=== PATIENT | male | born 1950 | race Caucasian/White ===

== ENCOUNTER → 2020-04-12 13:43 | Outpatient (BNVA) | payer MEDICARE, SELFPAY | PROVIDERS: PCP Internal Medicine; Visit Provider Urology | DX: N40.0 Benign prostatic hyperplasia without lower urinary tract symptoms (principal); N52.9 Male erectile dysfunction, unspecified; N48.1 Balanitis | CPT/HCPCS: 51798; 81002; 99212 ==

== ENCOUNTER → 2020-09-27 09:55 | Outpatient (BNVA) | payer MEDICARE, SELFPAY | PROVIDERS: PCP Internal Medicine; Visit Provider Urology | CPT/HCPCS: Q3014 ==

== ENCOUNTER → 2021-06-13 13:07 | Outpatient (BNVA) | payer MEDICARE, SELFPAY | PROVIDERS: PCP Internal Medicine; Visit Provider Urology | DX: Z13.89 Encounter for screening for other disorder (principal) | CPT/HCPCS: Q3014 ==

== ENCOUNTER → 2021-09-27 13:07 | Outpatient (BNVA) | payer MEDICARE, SELFPAY | PROVIDERS: PCP Internal Medicine; Visit Provider Urology | DX: N40.0 Benign prostatic hyperplasia without lower urinary tract symptoms (principal); N52.9 Male erectile dysfunction, unspecified; R68.82 Decreased libido | CPT/HCPCS: 51798; 99212 ==

== ENCOUNTER 2021-12-22 08:46 | Outpatient (REF) | payer MEDICARE, SELFPAY ==
[2021-12-22 09:33] LABS: Albumin Level 4.5 g/dL (3.5-5.0)
[2021-12-25 12:03] LABS: Follicle Stimulating Hormone 13.9 mIU/mL (1.6-8.0); Lutenizing Hormone 22.8 mIU/mL (1.6-15.2)
[2021-12-29 14:52] LABS: Testosterone, Free 79.2 pg/mL (35.0-155.0); Testosterone, Total 624 ng/dL (250-1100)
[2021-12-29 23:22] LABS: Estradiol Ultra Sensitive 31 pg/mL (< OR = 29)
== END 2021-12-22 08:47 | disposition home or self-care (01) ==
LOC: HO.LAB 08:46
PROVIDERS: Visit Provider Urology
DX: E29.1 Testicular hypofunction (principal); R68.82 Decreased libido
CPT/HCPCS: 36415; 82040; 82670; 83001; 83002; 84402; 84403

== ENCOUNTER → 2022-01-03 09:52 | Outpatient (BNVA) | payer MEDICARE, SELFPAY | PROVIDERS: PCP Internal Medicine; Visit Provider Urology | DX: N40.0 Benign prostatic hyperplasia without lower urinary tract symptoms (principal); R68.82 Decreased libido; N52.9 Male erectile dysfunction, unspecified | CPT/HCPCS: 51798; 99212 ==

== ENCOUNTER 2022-07-03 12:20 | Outpatient (REF) | payer MEDICARE, SELFPAY ==
[2022-07-03 13:50] LABS: Hematocrit 39.5 % (42.0-52.0); Hemoglobin 13.5 g/dl (14.0-18.0); Mean Corpuscular HGB Conc 34.2 g/dl (31.0-36.0); Mean Corpuscular Hemoglobin 29.5 pg (27.0-33.0); Mean Corpuscular Volume 86.4 fL (80.0-98.0); Platelet Count 244 X10*3/uL (160-400); Red Blood Count 4.57 X10*6/uL (4.60-5.80); Red Cell Distribution Width 12.3 % (11.0-16.0)
[2022-07-03 14:44] LABS: Prostate Specific Antigen 8.64 ng/mL (<0.05-4.0)
[2022-07-05 22:04] LABS: Lutenizing Hormone 20.5 mIU/mL (1.6-15.2)
[2022-07-11 13:54] LABS: Testosterone, Total 491 ng/dL (250-1100)
[2022-07-11 23:44] LABS: Estradiol Ultra Sensitive 25 pg/mL (< OR = 29)
== END 2022-07-03 12:21 | disposition home or self-care (01) ==
LOC: HO.LAB 12:20
PROVIDERS: PCP Internal Medicine; Visit Provider Urology
DX: Z12.5 Encounter for screening for malignant neoplasm of prostate (principal); E29.1 Testicular hypofunction; R68.82 Decreased libido
CPT/HCPCS: 36415; 82670; 83002; 84153; 84403; 85027

== ENCOUNTER → 2022-07-13 09:07 | Outpatient (BNVA) | payer MEDICARE, SELFPAY | PROVIDERS: PCP Internal Medicine; Visit Provider Urology | DX: N40.0 Benign prostatic hyperplasia without lower urinary tract symptoms (principal); N52.9 Male erectile dysfunction, unspecified; R97.20 Elevated prostate specific antigen [PSA]; L64.9 Androgenic alopecia, unspecified | CPT/HCPCS: Q3014 ==

== ENCOUNTER 2022-09-07 13:40 | Outpatient (REF) | payer MEDICARE, SELFPAY ==
[2022-09-10 12:28] LABS: Free Prostate Spec Ag 0.5 ng/mL; Percent Free Prostate Spec Ag 10 % (calc) (>25); Prostate Specific Ag Total 4.9 ng/mL (< OR = 4.0)
== END 2022-09-07 13:41 | disposition home or self-care (01) ==
LOC: HO.LAB 13:40
PROVIDERS: Visit Provider Urology
DX: Z12.5 Encounter for screening for malignant neoplasm of prostate (principal); R97.20 Elevated prostate specific antigen [PSA]
CPT/HCPCS: 36415; 84153; 84154

== ENCOUNTER 2022-09-19 11:09 | Outpatient (AMB) | payer MEDICARE, SELFPAY ==
--- NOTE | 2022-09-19 11:11 | MHC.OFFVIS ---
Intake Intake Visit Reasons: 2M PSA(set) Intake Note: Pt presents to the office today for a 2 month PSA. Allergies No Known Allergies Allergy (Verified 09/19/22 11:12) Medication List - Last Reconciled 09/19/22 by Derek Ribeiro MD clomiphene citrate 50 mg PO .BIW 90 days clotrimazole-betamethasone 1-0.05 % 1 appl topical BID 4 weeks diclofenac sodium 1% grams topical hydrochlorothiazide 25 mg PO DAILY levofloxacin 500 mg PO daily 3 days lisinopril 40 mg PO DAILY minoxidil 5 mg (2 x 2.5 mg) PO DAILY 90 days omeprazole 40 mg PO DAILY simvastatin 20 mg PO BEDTIME tadalafil 20 mg orally PRN; On demand medication take 60 minutes before intended activity not to exceed one tab daily 30 days tadalafil (Cialis) 5 mg PO DAILY 90 days umeclidinium-vilanterol 62.5-25 mcg/actuation (Anoro Ellipta) 1 ea inhalation DAILY HPI HPI Comments History of Present Illness Details Mr Duran is a very pleasant male. He is a patient of Dr Hazel. He is seen for the following urologic conditions. - balanitis - lower urinary tract symptoms - erectile dysfunction - male pattern baldness Repeat PSA 4.9, 10% free Recommend biopsy PSA high - 07/03 8.6 Repeat 2 months Good response to Clomiphene Estradiol normal range, remain on Saturday and dosing Remains on 5 mg daily tadalafil brand name Like to add generic 5 mg daily with 20 on demand Male pattern baldness Trial minoxidil 5 mg Hypogonadism Low T initial - 07/02 T 280, FT 7, 10/02 T 320 Free 7, 07/03 T 490 E 25 PSA 8.6 Daily Clomiphene - 01/02 T 624 =, LH 22, FSH 13.9 Erectile dysfunction Has been using daily 5mg tadalafil with on demand 20mg Lower urinary tract symptoms They are here for further management for incomplete emptying neurogenic bladder, - seen in September 15. Given opioids with retention. Malik placed September 17 2015 Background of obstructive symptoms on cialis 5mg daily. Has been doing well on daily Cialis. Stopped Flomax. Has minimal issues with urination.. Urinary retention initially found after ER visit for spontaneous retention. Voiding trial outcome passed second voiding trial. Current management Therapeutic plan continue with medication. PSA 03/30 1.2, PSA 04/01 1.6. [facility] Medical History BPH (benign prostatic hyperplasia) Erectile dysfunction GERD (gastroesophageal reflux disease) Glaucoma Hemorrhoids History of retained foreign body fully removed HTN (hypertension) Hypercholesteremia Incomplete emptying of bladder Iron (Fe) deficiency anemia Surgical History History of colonoscopy Review of Systems Const Denies chills and Denies fever(s) Card Reports no additional complaints and Denies syncope Resp Denies cough GI Denies abdominal pain and Denies heartburn Reports as per HPI and Denies change in libido Neuro Denies syncope Psych Denies change in libido Endo Denies change in libido Physical Exam Const General: cooperative, healthy appearing, comfortable and no acute distress Orientation/consciousness: patient oriented x3 HEENT Face and sinus: Yes normal facial exam Mouth: moist mucous membranes Neck Neck: Yes normal visual inspection, Yes full ROM and Yes trachea midline Chest Chest palpation & inspection: normal inspection of the chest Resp Effort & Inspection: normal respiratory effort, able to speak in complete sentences and no respiratory distress GI Inspection: Yes normal to inspection Back/Spine/Pelvis Cervical Spine: normal cervical lordosis Thoracic/Lumbar Spine: thoracic and lumbar spine normal to inspection Skin General skin exam: no rashes or lesions noted Neuro General: patient oriented x3, gait normal, tone normal and moves all extremities Extrem General: Yes normal to inspection and Yes capillary refill normal Assessment & Plan Assessment & Plan (1) BPH (benign prostatic hyperplasia): Code(s): N40.0 - Benign prostatic hyperplasia without lower urinary tract symptoms (2) Elevated PSA: Code(s): R97.20 - Elevated prostate specific antigen [PSA] (3) Erectile dysfunction: Code(s): N52.9 - Male erectile dysfunction, unspecified Plan Risks and benefits regarding trans rectal ultrasound with prostate biopsy were discussed. Options of continued surveillance, no treatment and biopsy were offered. The risks include but are not limited to, urinary tract infection, sepsis, difficulty urinating, bleeding into the rectum or bladder that requires intervention and transfusion,and failure to diagnose prostate cancer. The patient understands the options and the risks involved. They wish to proceed. Printed information was provided to ensure he remains off anticoagulation for the appropriate length of time. He may require cardiology or PCP clearance. An antibiotic will be administered prior to, and following the procedure Medications: New levofloxacin take 1 tablet day before procedure, 1 tablet day of procedure and 1 tablet day after procedure 500 mg PO daily 3 days 3 tabs 0RF R97.20 - Elevated prostate specific antigen [PSA] tadalafil 5 mg PO DAILY 90 tabs 1RF sexual activity 90 days N52.9 - Male erectile dysfunction, unspecified Patient Instructions: Imaging studies, laboratory and physical exam results were discussed and reviewed in detail. No major barriers to patient understanding were identified. An opportunity to ask questions regarding the treatment plan was provided. All questions were answered. The patient expressed understanding and agreement with the above treatment plan. The patient is aware they should contact our office by phone for worsening of their current condition or the appearance of new urologic symptoms. Compliance is encouraged with any medications and followup testing that is ordered. It is a privilege to participate in the urologic care of your patient. If you have any questions or concerns regarding treatment for the above conditions, or other urologic issues, please do not hesitate to contact me. The office telephone contact is [phone]. This note is constructed using voice recognition software. While every effort has been made to ensure accuracy equipment driver errors may have been included. Yours sincerely, Dr Derek Ribeiro MD, [facility] - Urology Providers of Expert, Compassionate Care for the Genitourinary System Coding Level of Care Code Est Pt Level 4 (26019) Diagnoses BPH (benign prostatic hyperplasia) N40.0 Elevated PSA R97.20 Erectile dysfunction N52.9
== END 2022-09-19 12:01 | disposition home or self-care (01) ==
PROVIDERS: PCP Internal Medicine; Visit Provider Urology
DX: N40.0 Benign prostatic hyperplasia without lower urinary tract symptoms (principal); R97.20 Elevated prostate specific antigen [PSA]; N52.9 Male erectile dysfunction, unspecified
CPT/HCPCS: 99214

== ENCOUNTER → 2022-09-19 11:09 | Outpatient (BNVA) | payer MEDICARE, SELFPAY | PROVIDERS: PCP Internal Medicine; Visit Provider Urology | DX: N40.0 Benign prostatic hyperplasia without lower urinary tract symptoms (principal); N52.9 Male erectile dysfunction, unspecified; R97.20 Elevated prostate specific antigen [PSA] | CPT/HCPCS: 99212 ==

== ENCOUNTER 2022-12-27 07:49 | Outpatient (REF) | payer MEDICARE, SELFPAY ==
[2022-12-27 07:58] VITALS: BP 172/97; PULSE 74; RESP 16; TEMP 36.8; O2SAT 97; BMI 30.8
--- NOTE | 2022-12-27 08:33 | W.PM.OPN ---
Operative Note Operative Note Date of Service: 12/27/22 Narrative: Preoperative diagnosis: Elevated PSA Postoperative diagnosis: Elevated PSA Procedure: 1. transrectal ultrasound measurement of prostate 2. transrectal ultrasound-guided pudendal nerve block 3. transrectal ultrasound-guided prostate biopsy 12 core Surgeon: Dr. Derek Ribeiro Anesthetic: Local Indications for procedure: Elevated PSA 4.9 10% Procedure: After informed consent was verified, the patient was brought into the procedure area and lay left-hand side down on the table. Patient identity confirmed. Perioperative antibiotics confirmed. Safety pause time out performed. WING performed to dilate rectal sphincter Iodine 10cc with Gel was placed per rectum Ultrasound probe was placed per rectum The prostate was measured in 3 dimensions Total volume equals 55 gm No cystic structures were noted No calcifications were noted at the surgical margin The prostate was otherwise homogeneous in nature An ultrasound-guided pudendal nerve block was performed using 10 cc of 1% lidocaine. 8 cc was placed at the base and 2 cc of the apex. A 12 core biopsy was performed with 6 cores each side. Two cores were taken at the apex, mid and base. Cores were spaced between lateral and medial. He tolerated the procedure well. Was able to ambulate to bathroom after 5 minutes. Printed instructions regarding antibiotic use and common side effects such as low-grade temperature, potential infection and bleeding were given Pathology: 12 core prostate biopsy.
[2022-12-27 08:37] VITALS: BP 175/99; PULSE 80; RESP 16; O2SAT 97
== END 2022-12-27 07:50 | disposition home or self-care (01) ==
LOC: HO.MS 07:49
PROVIDERS: PCP Internal Medicine; Visit Provider Urology
PROC: (CPT 55700; principal; 2022-12-27 08:00)
DX: C61 Malignant neoplasm of prostate (principal); R97.20 Elevated prostate specific antigen [PSA]
CPT/HCPCS: 55700; 76942; 88305; 88344

== ENCOUNTER → 2022-12-27 07:49 | Outpatient (BNV) | payer MEDICARE, SELFPAY | PROVIDERS: PCP Internal Medicine; Visit Provider Urology | DX: R97.20 Elevated prostate specific antigen [PSA] (principal) | CPT/HCPCS: 55700; 76942 ==

== ENCOUNTER 2023-01-10 11:29 | Outpatient (AMB) | payer MEDICARE, SELFPAY ==
--- NOTE | 2023-01-10 11:34 | A.OFFVIS_ITS ---
Intake Intake Visit Reasons: prostate bx results Intake Note: Patient is Present for Telephone Follow Up Urology Med: Tadalafil Antibiotic Allergy: None Blood Thinner: None Pharamcy: Allergies No Known Allergies Allergy (Verified 09/19/22 11:12) Medication List - Last Reconciled 01/10/23 by Derek Ribeiro MD clomiphene citrate (Clomid) 50 mg PO .BIW 90 days clotrimazole-betamethasone 1-0.05 % 1 appl topical BID 4 weeks diclofenac sodium 1% grams topical finasteride 5 mg PO DAILY 90 days hydrochlorothiazide 25 mg PO DAILY levofloxacin 500 mg PO daily 3 days lisinopril 40 mg PO DAILY minoxidil 5 mg (2 x 2.5 mg) PO DAILY 90 days omeprazole 40 mg PO DAILY simvastatin 20 mg PO BEDTIME tadalafil 20 mg orally PRN; On demand medication take 60 minutes before intended activity not to exceed one tab daily 30 days tadalafil (Cialis) 5 mg PO DAILY 90 days tadalafil 5 mg PO DAILY 90 days umeclidinium-vilanterol 62.5-25 mcg/actuation (Anoro Ellipta) 1 ea inhalation DAILY HPI HPI Comments History of Present Illness Details Mr Duran is a very pleasant male. He is a patient of Dr Hazel. He is seen for the following urologic conditions. - balanitis - lower urinary tract symptoms - erectile dysfunction - male pattern baldness Telemedicine Evaluation 15 min Consultation [employer] [facility] Video attempted Discussed diagnosis Low volume, grade group 2 disease Needs to complete staging with prostate MRI [facility] to determine active surveillance versus therapy Prostate Cancer Therapy Discussion today focused on treatment options for prostate cancer. The patient has already reviewed educational materials that had been provided to him in printed form. The NCCN criteria for imaging, molecular testing and germ line testing were discussed. 1) Deferred therapy/active surveillance. Recommended in the setting of low volume, very low risk and low risk disease. Criteria include 3 cores all less, same side, no core greater than 50% disease. Evaluation may be augmented with imaging such as pelvic MRI and genetic evaluation of biopsy material. Somatic tissue genetic testing such as [facility], which focuses on tumor-specific pathogenic variants that may identify an indication for further germline testing and can guide therapeutic decisions in the setting of low risk and low volume disease. - The patient is a candidate for active surveillance. NCCN Prostate Cancer Guideline 4.2022 PROS-F Page 2 PRINCIPLES OF ACTIVE SURVEILLANCE AND OBSERVATION Confirmatory Testing to Establish Appropriateness of Active Surveillance: - Goals of confirmatory testing are to h elp facilitate early identification of those patients who may be at a higher risk of future grade reclassification or cancer progression. - Since an initial prostate biopsy may u nderestimate tumor grade or volume, confirmatory testing is strongly recommended within the first 6 to 12 months of diagnosis for patients who are considering active surveillance. - Options for confirmatory testing inclu de prostate biopsy, mpMRI with calculation of PSA density (and repeat biopsy as indicated), and/or molecular tumor analysis, see Principles of Risk Stratification (PROS-D). - Early confirmatory testing may not be necessary in patients who have had an mpMRI prior to diagnostic biopsy. ?All patients should undergo a confirmatory prostate biopsy within 1?2 years of their diagnostic biopsy References: Giulia RT, Tolu K, Siddhartha RAVI, et al. Development and Validation of a Clinical Prognostic Stage Group System.?[facility]. doi: [email or web address] Prostate cancer - 01/03 - grade group 2, low volume Diagnosed by Dr. Ribeiro PSA at diagnosis 4.9 TRUS volume 55g Histologic type: Adenocarcinoma, acinar type Wilma score: 7 (3+4) (right base lateral 30% and medial 40%), 6 (3+3) (right mid lateral 15%) % of pattern 4: 32% Grade group: 2 and 1 Tumor quantitation: Number cores positive: 4 Total number of cores: 21 % of tissue involved: 13% Periprostatic fat inv.: Not identified Seminal vesicle inv.: Not identified Perineural inv.: Present Lymphovascular invasion: Not identified Male pattern baldness Trial minoxidil 5 mg Hypogonadism Low T initial - 07/02 T 280, FT 7, 10/02 T 320 Free 7, 07/03 T 490 E 25 PSA 8.6 Daily Clomiphene - 01/02 T 624 =, LH 22, FSH 13.9 Good response to Clomiphene Estradiol normal range, remain on Saturday and dosing Erectile dysfunction Has been using daily 5mg tadalafil with on demand 20mg Lower urinary tract symptoms They are here for further management for incomplete emptying neurogenic bladder, - seen in September 15. Given opioids with retention. Malik placed [place] 6th 2016 Background of obstructive symptoms on cialis 5mg daily. Has been doing well on daily Cialis. Stopped Flomax. Has minimal issues with urination.. Urinary retention initially found after ER visit for spontaneous retention. Voiding trial outcome passed second voiding trial. Current management Therapeutic plan continue with medication. PSA 03/30 1.2, PSA 04/01 1.6. [facility] Medical History History of retained foreign body fully removed Glaucoma Iron (Fe) deficiency anemia GERD (gastroesophageal reflux disease) Hypercholesteremia HTN (hypertension) Hemorrhoids Incomplete emptying of bladder BPH (benign prostatic hyperplasia) Erectile dysfunction Surgical History History of colonoscopy Review of Systems Const All systems reviewed & are unremarkable except as noted in HPI and below Reports no additional complaints Resp Reports no additional complaints GI Reports no additional complaints Reports as per HPI Musc Reports no additional complaints Physical Exam Telemedicine evaluation Appropriate responses Regular breathing rate and rhythm HEENT Head: Yes normal to inspection Ears: hearing grossly normal bilaterally Eyes General: appearance normal, both eyes and all related structures Neck Neck: Yes normal visual inspection Chest Chest palpation & inspection: normal inspection of the chest Resp Effort & Inspection: normal respiratory effort and able to speak in complete sentences Assessment & Plan Assessment & Plan (1) Prostate cancer: Code(s): C61 - Malignant neoplasm of prostate Plan Genetic testing Prostate MRI Follow-up Orders: Orders Creatinine 4 Weeks C61 - Malignant neoplasm of prostate, R39.15 - Urgency of urination Blood Urea Nitrogen 4 Weeks C61 - Malignant neoplasm of prostate, R39.15 - Urgency of urination MR pelvis wo/w con 4 Weeks C61 - Malignant neoplasm of prostate Medications: New finasteride 5 mg PO DAILY 90 days 90 tabs 1RF C61 - Malignant neoplasm of prostate, N13.8 - Other obstructive and reflux uropathy, N40.1 - Benign prostati c hyperplasia with lower urinary tract symptoms, R33.9 - Retention of urine, unspecified Patient Instructions: Imaging studies, laboratory and physical exam results were discussed and reviewed in detail. No major barriers to patient understanding were identified. An opportunity to ask questions regarding the treatment plan was provided. All questions were answered. The patient expressed understanding and agreement with the above treatment plan. The patient is aware they should contact our office by phone for worsening of their current condition or the appearance of new urologic symptoms. Compliance is encouraged with any medications and followup testing that is ordered. It is a privilege to participate in the urologic care of your patient. If you have any questions or concerns regarding treatment for the above conditions, or other urologic issues, please do not hesitate to contact me. The office telephone contact is [phone]. This note is constructed using voice recognition software. While every effort has been made to ensure accuracy mechanics supervisor errors may have been included. Yours sincerely, Dr Derek Ribeiro MD, [facility] - Urology Providers of Expert, Compassionate Care for the Genitourinary System Telehealth Telehealth Location of provider rendering services: practice address Location of patient: address on file Patient Identification confirmed using: Name, : Yes Telehealth method: video Patient verbally consented to treatment: Yes Patient verbally consented to billing insurance company: Yes Patient informed of any privacy concerns related to visit: Yes Coding Level of Care Code Tele Est Pt Level 4 (42394) Diagnoses Prostate cancer C61
== END 2023-01-10 12:12 | disposition home or self-care (01) ==
LOC: HO.HUSH 11:29
PROVIDERS: PCP Internal Medicine; Visit Provider Urology
DX: C61 Malignant neoplasm of prostate (principal)
CPT/HCPCS: 99214

== ENCOUNTER → 2023-01-10 11:29 | Outpatient (BNVA) | payer MEDICARE, SELFPAY | PROVIDERS: PCP Internal Medicine; Visit Provider Urology ==

== ENCOUNTER 2023-01-24 13:18 | Outpatient (REF) | payer MEDICARE, SELFPAY ==
[2023-01-24 14:36] LABS: Blood Urea Nitrogen 20 mg/dL (9-16); Estimated Glomerular Filt Rate 55
== END 2023-01-24 13:19 | disposition home or self-care (01) ==
LOC: HO.LAB 13:18
PROVIDERS: PCP Internal Medicine; Visit Provider Urology
DX: R39.15 Urgency of urination (principal); C61 Malignant neoplasm of prostate
CPT/HCPCS: 36415; 82565; 84520

== ENCOUNTER 2023-05-10 09:16 | Outpatient (AMB) | payer MEDICARE, SELFPAY ==
--- NOTE | 2023-05-10 09:16 | MHC.OFFVIS ---
Intake Intake Visit Reasons: Follow Up Intake Note: Patient is present for Telephone Follow up Current MRI was done at [facility] Results has not been received Allergies No Known Allergies Allergy (Verified 09/19/22 11:12) Medication List - Last Reconciled 05/10/23 by Derek Ribeiro MD Cialis (tadalafil) 5 mg PO DAILY 90 days NS clomiphene citrate (Clomid) 50 mg PO .BIW 90 days clotrimazole-betamethasone 1-0.05 % 1 appl topical BID 4 weeks diclofenac sodium 1% grams topical finasteride 5 mg PO DAILY 90 days hydrochlorothiazide 25 mg PO DAILY levofloxacin 500 mg PO daily 3 days lisinopril 40 mg PO DAILY minoxidil 5 mg (2 x 2.5 mg) PO DAILY 90 days omeprazole 40 mg PO DAILY sildenafil 100 mg PO ONCE PRN 30 days simvastatin 20 mg PO BEDTIME tadalafil 20 mg orally PRN; On demand medication take 60 minutes before intended activity not to exceed one tab daily 30 days tadalafil 5 mg PO DAILY 90 days umeclidinium-vilanterol 62.5-25 mcg/actuation (Anoro Ellipta) 1 ea inhalation DAILY HPI HPI Comments History of Present Illness Details Mr Duran is a very pleasant male. He is a patient of Dr Hazel. He is seen for the following urologic conditions. - balanitis - lower urinary tract symptoms - erectile dysfunction - male pattern baldness Telemedicine Evaluation 15 min Consultation [employer] Elizabeth Video attempted Discussed genetic and MRI significance Based on genetic indeterminate would recommend active surveillance for a 73-year-old at this point in time Four month follow-up protocol PSA Re-biopsy at 18-24 months using MRI fusion targeting Had evaluation at the [facility] that had suggested RT versus RP but this decision making was performed without knowledge of genetic evaluation. Requested refills for minoxidil, Cialis brand name, sildenafil on demand Prostate cancer - 01/03 - grade group 2, low volume Diagnosed by Dr. Ribeiro PSA at diagnosis 4.9 TRUS volume 55g Histologic type: Adenocarcinoma, acinar type Bethel score: 7 (3+4) (right base lateral 30% and medial 40%), 6 (3+3) (right mid lateral 15%) % of pattern 4: 32% Grade group: 2 and 1 Tumor quantitation: Number cores positive: 4 Total number of cores: 12 - % of tissue involved: 13% Periprostatic fat inv.: Not identified Seminal vesicle inv.: Not identified Perineural inv.: Present Lymphovascular invasion: Not identified Subtextual - 01/03 Prolaris molecular score: 2.6. Test recommendation for possible treatment path: Based on the Prolaris molecular score and clinical variables, this patient may be a candidate for active surveillance. Personalized risk results: 10 year risk of disease specific mortality (DSM) with conservative management: 1.7%. 10 year risk of prostate cancer metastasis with single-modal treatment: 0.6% 10 year risk prostate cancer metastasis with RT plus ADT: 0.4 MRI [facility] Prostate size 50 g. 8 mm focal lesion right peripheral zone base PI-RADS 4, 7 mm right peripheral zone mid PI-RADS 4, 1.4 cm left peripheral zone base posterolateral PI-RADS 4. No lymphadenopathy. Seminal vesicles normal Male pattern baldness Trial minoxidil 5 mg Hypogonadism Low T initial - 07/02 T 280, FT 7, 10/02 T 320 Free 07/03 T 490 E 25 PSA 8.6 Daily Clomiphene - 01/02 T 624 =, LH 22, FSH 13.9 Good response to Clomiphene Estradiol normal range, remain on Saturday and dosing Erectile dysfunction Has been using daily 5mg tadalafil with on demand 20mg Lower urinary tract symptoms They are here for further management for incomplete emptying neurogenic bladder, - seen in September 15. Given opioids with retention. Malik placed September 17 2015 Background of obstructive symptoms on cialis 5mg daily. Has been doing well on daily Cialis. Stopped Flomax. Has minimal issues with urination.. Urinary retention initially found after ER visit for spontaneous retention. Voiding trial outcome passed second voiding trial. Current management Therapeutic plan continue with medication. PSA 03/30 1.2, PSA 04/01 1.6. [facility] Medical History History of retained foreign body fully removed Glaucoma Iron (Fe) deficiency anemia GERD (gastroesophageal reflux disease) Hypercholesteremia HTN (hypertension) Hemorrhoids Incomplete emptying of bladder BPH (benign prostatic hyperplasia) Erectile dysfunction Surgical History History of colonoscopy Review of Systems Const All systems reviewed & are unremarkable except as noted in HPI and below Reports no additional complaints Resp Reports no additional complaints GI Reports no additional complaints Reports as per HPI Musc Reports no additional complaints Physical Exam Telemedicine evaluation Appropriate responses Regular breathing rate and rhythm HEENT Head: Yes normal to inspection Ears: hearing grossly normal bilaterally Eyes General: appearance normal, both eyes and all related structures Neck Neck: Yes normal visual inspection Chest Chest palpation & inspection: normal inspection of the chest Resp Effort & Inspection: normal respiratory effort and able to speak in complete sentences Assessment & Plan Assessment & Plan (1) Prostate cancer: Code(s): C61 - Malignant neoplasm of prostate (2) 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, unspecified (3) Erectile dysfunction: Code(s): N52.9 - Male erectile dysfunction, unspecified Plan PSA 4 month follow-up testosterone Orders: Orders Prostate Specific Antigen 02/21/23 C61 - Malignant neoplasm of prostate Prostate Specific Antigen 4 Months C61 - Malignant neoplasm of prostate Testosterone, Total 4 Months R68.82 - Decreased libido Medications: New sildenafil administer 60 minutes before intended activity 100 mg PO ONCE 30 days PRN 30 tabs 1RF sexual activity N52.9 - Male erectile dysfunction, unspecified Changed From tadalafil (Cialis) 5 mg PO DAILY 90 days 90 tabs 1RF N40.0 - Benign prostatic hyperplasia without lower urinary tract symptoms To Cialis (tadalafil) 5 mg PO DAILY 90 days 90 tabs 1RF NS N40.0 - Benign prostatic hyperplasia without lower urinary tract symptoms Refilled finasteride 5 mg PO DAILY 90 days 90 tabs 1RF C61 - Malignant neoplasm of prostate, N13.8 - Other obstructive and reflux uropathy, N40.1 - Benign prostatic hyperplasia with lower urinary tract symptoms, R33.9 - Retention of urine, unspecified minoxidil 5 mg (2 x 2.5 mg) PO DAILY 90 days 180 tabs 1RF 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 No major barriers to patient understanding were identified. An opportunity to ask questions regarding the treatment plan was provided. All questions were answered. The patient expressed understanding and agreement with the above treatment plan. The patient is aware they should contact our office by phone for worsening of their current condition or the appearance of new urologic symptoms. Compliance is encouraged with any medications and followup testing that is ordered. It is a privilege to participate in the urologic care of your patient. If you have any questions or concerns regarding treatment for the above conditions, or other urologic issues, please do not hesitate to contact me. The office telephone contact is [phone]. This note is constructed using voice recognition software. While every effort has been made to ensure accuracy automation qtp tester errors may have been included. Yours sincerely, Dr Derek Ribeiro MD, [facility] - Urology Providers of Expert, Compassionate Care for the Genitourinary System Telehealth Telehealth Location of provider rendering services: practice address Location of patient: address on file Patient Identification confirmed using: Name, : Yes Telehealth method: video Patient verbally consented to treatment: Yes Patient verbally consented to billing insurance company: Yes Patient informed of any privacy concerns related to visit: Yes Coding Level of Care Code Tele Est Pt Level 4 (69234) Diagnoses Prostate cancer C61 Male pattern baldness L64.9 Erectile dysfunction N52.9
== END 2023-05-10 10:10 | disposition home or self-care (01) ==
LOC: HO.HUSH 09:16
PROVIDERS: PCP Internal Medicine; Visit Provider Urology
DX: C61 Malignant neoplasm of prostate (principal); L64.9 Androgenic alopecia, unspecified; N52.9 Male erectile dysfunction, unspecified
CPT/HCPCS: 99214

== ENCOUNTER → 2023-05-10 09:16 | Outpatient (BNVA) | payer MEDICARE, SELFPAY | PROVIDERS: PCP Internal Medicine; Visit Provider Urology ==

== ENCOUNTER 2023-09-12 12:34 | Outpatient (REF) | payer MEDICARE, SELFPAY ==
[2023-09-12 13:58] LABS: Prostate Specific Antigen 2.25 ng/mL (<0.05-4.0)
[2023-09-17 01:58] LABS: Testosterone, Total 414 ng/dL (250-1100)
== END 2023-09-12 12:35 | disposition home or self-care (01) ==
LOC: HO.LAB 12:34
PROVIDERS: PCP Internal Medicine; Visit Provider Urology
DX: C61 Malignant neoplasm of prostate (principal); R68.82 Decreased libido; Z12.5 Encounter for screening for malignant neoplasm of prostate
CPT/HCPCS: 36415; 84153; 84403

== ENCOUNTER 2023-09-25 15:26 | Outpatient (AMB) | payer MEDICARE, SELFPAY ==
--- NOTE | 2023-09-25 15:33 | A.OFFVIS_ITS ---
Intake Visit Reasons: Follow Up-PSA/Testosterone Intake Note: Patient Is present for Labs follow up Urology Med: Sildenafil, Tadalafil,Finasteride Antibiotic Allergies: None Blood Thinners:None Physician General Practice Required: No Accompanied by: Self / Same As Patient Allergies No Known Allergies Allergy (Verified 09/25/23 15:38) HPI Comments Details: Mr Duran is a very pleasant male. He is a patient of Dr Hazel. He is seen for the following urologic conditions. - balanitis - lower urinary tract symptoms - erectile dysfunction - male pattern baldness Lab work - 10/04 2.2 T 415 Based on genetic indeterminate would recommend active surveillance for a 73-year-old at this point in time Four month follow-up protocol PSA Re-biopsy at 18-24 months using MRI fusion targeting Had evaluation at the [facility] that had suggested RT versus RP but this decision making was performed without knowledge of genetic evaluation. Requested refills for minoxidil, Cialis brand name, sildenafil on demand Prostate cancer - 01/03 - grade group 2, low volume Diagnosed by Dr. Ribeiro PSA at diagnosis 4.9 TRUS volume 55g Histologic type: Adenocarcinoma, acinar type Wilma score: 7 (3+4) (right base lateral 30% and medial 40%), 6 (3+3) (right mid lateral 15%) % of pattern 4: 32% Grade group: 2 and 1 Tumor quantitation: Number cores positive: 4 Total number of cores: 12 - % of tissue involved: 13% Periprostatic fat inv.: Not identified Seminal vesicle inv.: Not identified Perineural inv.: Present Lymphovascular invasion: Not identified GeeYuu - 01/03 Prolaris molecular score: 2.6. Test recommendation for possible treatment path: Based on the Prolaris molecular score and clinical variables, this patient may be a candidate for active surveillance. Personalized risk results: 10 year risk of disease specific mortality (DSM) with conservative management: 1.7%. 10 year risk of prostate cancer metastasis with single-modal treatment: 0.6% 10 year risk prostate cancer metastasis with RT plus ADT: 0.4 MRI [facility] Prostate size 50 g. 8 mm focal lesion right peripheral zone base PI-RADS 4, 7 mm right peripheral zone mid PI-RADS 4, 1.4 cm left peripheral zone base posterolateral PI-RADS 4. No lymphadenopathy. Seminal vesicles normal Male pattern baldness Trial minoxidil 5 mg Hypogonadism Low T initial - 07/02 T 280, FT 7, 10/02 T 320 Free 7, 07/03 T 490 E 25 PSA 8.6 Daily Clomiphene - 01/02 T 624 =, LH 22, FSH 13.9 Good response to Clomiphene Estradiol normal range, remain on Saturday and dosing Erectile dysfunction Has been using daily 5mg tadalafil with on demand 20mg Lower urinary tract symptoms They are here for further management for incomplete emptying neurogenic bladder, - seen in September 15. Given opioids with retention. Malik placed September 17 2015 Background of obstructive symptoms on cialis 5mg daily. Has been doing well on daily Cialis. Stopped Flomax. Has minimal issues with urination.. Urinary retention initially found after ER visit for spontaneous retention. Voiding trial outcome passed second voiding trial. Current management Therapeutic plan continue with medication. PSA 03/30 1.2, PSA 04/01 1.6. [facility] Medical History History of retained foreign body fully removed Glaucoma Iron (Fe) deficiency anemia GERD (gastroesophageal reflux disease) Hypercholesteremia HTN (hypertension) Hemorrhoids Incomplete emptying of bladder BPH (benign prostatic hyperplasia) Erectile dysfunction Surgical History History of colonoscopy Review of Systems Const Denies chills and Denies fever(s) Card Reports no additional complaints and Denies syncope Resp Denies cough GI Denies abdominal pain and Denies heartburn Reports as per HPI and Denies change in libido Neuro Denies syncope Psych Denies change in libido Endo Denies change in libido Physical Exam Const General: cooperative, healthy appearing, comfortable and no acute distress Orientation/consciousness: patient oriented x3 HEENT Face and sinus: Yes normal facial exam Mouth: moist mucous membranes Neck Neck: Yes normal visual inspection, Yes full ROM and Yes trachea midline Chest Chest palpation & inspection: normal inspection of the chest Resp Effort & Inspection: normal respiratory effort, able to speak in complete sentences and no respiratory distress GI Inspection: Yes normal to inspection Back/Spine/Pelvis Cervical Spine: normal cervical lordosis Thoracic/Lumbar Spine: thoracic and lumbar spine normal to inspection Skin General skin exam: no rashes or lesions noted Neuro General: patient oriented x3, gait normal, tone normal and moves all extremities Extrem General: Yes normal to inspection and Yes capillary refill normal Assessment & Plan Assessment & Plan (1) Erectile dysfunction: Code(s): N52.9 - Male erectile dysfunction, unspecified Category: Medical (2) Low libido: Code(s): R68.82 - Decreased libido Category: Medical (3) Prostate cancer: Code(s): C61 - Malignant neoplasm of prostate Category: Medical Plan 4 month follow-up lab work Orders: Orders Prostate Specific Antigen 4 Months C61 - Malignant neoplasm of prostate Testosterone, Total 4 Months C61 - Malignant neoplasm of prostate Patient Instructions: Imaging studies, laboratory and physical exam results were discussed and reviewed in detail. No major barriers to patient understanding were identified. An opportunity to ask questions regarding the treatment plan was provided. All questions were answered. The patient expressed understanding and agreement with the above treatment plan. The patient is aware they should contact our office by phone for worsening of their current condition or the appearance of new urologic symptoms. Compliance is encouraged with any medications and followup testing that is ordered. It is a privilege to participate in the urologic care of your patient. If you have any questions or concerns regarding treatment for the above conditions, or other urologic issues, please do not hesitate to contact me. The office telephone contact is [phone]. This note is constructed using voice recognition software. While every effort has been made to ensure accuracy reflow operator errors may have been included. Yours sincerely, Dr Derek Ribeiro MD, [facility] - Urology Providers of Expert, Compassionate Care for the Genitourinary System Coding Level of Care Code Est Pt Level 3 (78377) Diagnoses Erectile dysfunction N52.9 Low libido R68.82 Prostate cancer C61
== END 2023-09-25 16:32 | disposition home or self-care (01) ==
PROVIDERS: PCP Internal Medicine; Visit Provider Urology
DX: N52.9 Male erectile dysfunction, unspecified (principal); R68.82 Decreased libido; C61 Malignant neoplasm of prostate
CPT/HCPCS: 99213

== ENCOUNTER → 2023-09-25 15:26 | Outpatient (BNVA) | payer MEDICARE, SELFPAY | PROVIDERS: PCP Internal Medicine; Visit Provider Urology | DX: N52.9 Male erectile dysfunction, unspecified (principal); C61 Malignant neoplasm of prostate; E29.1 Testicular hypofunction; L64.9 Androgenic alopecia, unspecified; Z79.899 Other long term (current) drug therapy | CPT/HCPCS: 99212 ==

== ENCOUNTER 2024-01-16 16:04 | Outpatient (REF) | payer MEDICARE, SELFPAY ==
[2024-01-16 18:00] LABS: Prostate Specific Antigen 2.83 ng/mL (<0.05-4.0)
[2024-01-21 12:03] LABS: Testosterone, Total 412 ng/dL (250-1100)
--- OUTSIDE RECORDS SUMMARY | 2024-01-22 04:24 | XMS_ITS | Clinical Summary ---
Author Organization Unknown Care Team Providers Care Track Superintendent Name Role Phone MELIDA BARKER Unavailable U chuck OSULLIVAN PT, TODD Unavailable Unavailable ALTHEA RESIDENTIAL CARPENTER, KOBE Unavailable Unavailable Payers Payer Name Policy Type Policy Number Effective Date Expira tion Date [id number] Problems Condition Name Condition Details Condition Category Status Onset Date Resolution Date Last Treatment Date Treating Clinician Comments AFTERCARE FOLLOWING JOINT REPLACEMENT SURGERY Active 04-26 00:00: 00 PRESENCE OF LEFT ARTIFICIAL KNEE JOINT Active 04-26 00:00: 00 CHRONIC OBSTRUCTIVE PULMONARY DISEASE, UNSPECIFIED Active 02-11 00:00: 00 ESSENTIAL (PRIMARY) HYPERTENSION Active 02-11 00:00: 00 HYPERLIPIDEM IA, UNSPECIFIED Active 02-11 00:00: 00 GASTRO-ESOPH AGEAL REFLUX DISEASE WITHOUT ESOPHAGITIS Active 02-11 00:00: 00 MALIGNANT NEOPLASM OF PROSTATE Active 02-11 00:00: 00 OTHER CHRONIC PAIN Active 02-11 00:00: 00 PAIN IN RIGHT KNEE Active 02-11 00:00: 00 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 Ordering Clinician Indication Dosage Frequency Signature (SIG) Comments Components Anoro Ellipta 62.5 mcg-25 mcg/actuati on powder for inhalation 04-25 00:00: 00 Yes [id number] SHORTNESS OF BREATH 1 inhalat ion NEEDED 1 inhalation NEEDED (route: inhalation ) Med Classific ation: Respirato ry Therapy Agents acetaminoph en 325 mg tablet 04-24 00:00: 00 Yes [id number] PAIN Per instruc tions every 8 hours as needed for pain for 7 days as needed every 6 hours Per instructio ns every 8 hours as needed for pain for 7 days as needed every 6 hours (route: oral) Med Classific ation: Analgesic , Anti-infl ammatory or Antipyret ic aspirin 81 mg tablet,arin yed release 04-24 00:00: 00 Yes [id number] BLOOD THINNER 1 tablet TWICE DAILY 1 tablet TWICE DAILY (route: oral) Med Classific ation: Hematolog ical Agents docusate sodium 100 mg capsule 04-24 00:00: 00 Yes [id number] CONSTIPATIO N 1 capsule EVERY TWELVE HOURS 1 capsule EVERY TWELVE HOURS (route: oral) Med Classific ation: Gastroint estinal Therapy Agents meloxicam 7.5 mg tablet 04-24 00:00: 00 Yes [id number] ANTI-INFLAM MATORY 1 tablet daily 1 tablet daily (route: oral) Med Classific ation: Analgesic , Anti-infl ammatory or Antipyret ic ondansetron 4 mg disintegrat ing tablet 04-24 00:00: 00 Yes [id number] NAUSEA AND VOMITING 1 tablet EVERY 8 HOURS NEEDED 1 tablet EVERY 8 HOURS NEEDED (route: oral) Med Classific ation: Gastroint estinal Therapy Agents oxycodone 5 mg tablet 04-24 00:00: 00 Yes [id number] SEVERE PAIN 1-2 tablet EVERY 4 HOURS NEEDED 1-2 tablet EVERY 4 HOURS NEEDED (route: oral) Med Classific ation: Analgesic , Anti-infl ammatory or Antipyret ic senna 8.6 mg tablet 04-24 00:00: 00 Yes [id number] CONSTIPATIO N 2 tablet EVERY TWELVE HOURS NEEDED 2 tablet EVERY TWELVE HOURS NEEDED (route: oral) Med Classific ation: Gastroint estinal Therapy Agents simvastatin 20 mg tablet 2024-0 3-14 00:00: 00 Yes [id number] HLD 1 tablet DAILY 1 tablet DAILY (route: oral) Med Classific ation: Cardiovas cular Therapy Agents tadalafil 5 mg tablet 04-24 00:00: 00 04-26 00:00 :00 No [id number] Per instruc tions Per instructio ns (route: oral) Med Classific ation: Drugs to treat Erectile Dysfuncti on tranexamic acid 650 mg tablet 04-24 00:00: 00 04-26 00:00 :00 No [id number] Per instruc tions Per instructio ns (route: oral) Med Classific ation: Hematolog ical Agents hydrochloro thiazide 25 mg tablet 04-17 00:00: 00 Yes [id number] HTN 1 tablet EVERY DAY 1 tablet EVERY DAY (route: oral) Med Classific ation: Cardiovas cular Therapy Agents omeprazole 40 mg capsule,del ayed release 04-16 00:00: 00 Yes [id number] GERD 1 capsule EVERY DAY 1 capsule EVERY DAY (route: oral) Med Classific ation: Gastroint estinal Therapy Agents finasteride 5 mg tablet 04-08 00:00: 00 Yes [id number] BPH 1 tablet EVERY DAY FOR 90 DAYS 1 tablet EVERY DAY FOR 90 DAYS (route: oral) Med Classific ation: Genitouri nary Therapy tadalafil 20 mg tablet 03-27 00:00: 00 04-26 00:00 :00 No [id number] Per instruc tions 60 MINUTES DAILY Per instructio ns 60 MINUTES DAILY (route: oral) Med Classific ation: Drugs to treat Erectile Dysfuncti on lisinopril 40 mg tablet 04-26 00:00: 00 Yes [id number] HTN 1 tablet DAILY 1 tablet DAILY (route: oral) Med Classific ation: Cardiovas cular Therapy Agents Vital Signs Vital Name Observation Time Observation Value Commen ts Temperature 2023-05-09 13:46:00.000 97.7 [degF] Temperature 2023-05-06 09:47:00.000 98.4 [degF] Temperature 2023-05-03 10:13:00.000 98.4 [degF] Temperature 2023-05-01 09:48:00.000 98.6 [degF] Temperature 2023-04-27 13:02:00.000 98 [degF] BMI (%) 2023-04-27 12:23:49.000 30 kg/m2 Height 2023-04-27 12:23:42.000 70 [in_us] Pulse 2023-05-09 13:46:00.000 72 /min Pulse 2023-05-06 09:47:00.000 88 /min Pulse 2023-05-03 10:13:00.000 90 /min Pulse 2023-05-01 09:48:00.000 72 /min Pulse 2023-04-27 13:02:00.000 73 /min O2 Saturation (%) 2023-04-27 13:02:00.000 93 % Respirations 2023-05-09 13:46:00.000 18 /min Respirations 2023-05-06 09:47:00.000 18 /min Respirations 2023-05-03 10:13:00.000 18 /min Respirations 2023-05-01 09:48:00.000 17 /min Respirations 2023-04-27 13:02:00.000 18 /min Weight (lbs) 2023-04-27 12:23:49.000 210 [lb_av] Systolic Blood Pressure 2023-05-09 13:46:00.000 132 mm [Hg] Systolic Blood Pressure 2023-05-06 09:47:00.000 140 mm [Hg] Systolic Blood Pressure 2023-05-03 10:13:00.000 142 mm [Hg] Systolic Blood Pressure 2023-05-01 09:48:00.000 130 mm [Hg] Systolic Blood Pressure 2023-04-27 13:02:00.000 120 mm [Hg] Diastolic Blood Pressure 2023-05-09 13:46:00.000 82 mm [Hg] Diastolic Blood Pressure 2023-05-06 09:47:00.000 72 mm [Hg] Diastolic Blood Pressure 2023-05-03 10:13:00.000 82 mm [Hg] Diastolic Blood Pressure 2023-05-01 09:48:00.000 78 mm [Hg] Diastolic Blood Pressure 2023-04-27 13:02:00.000 70 mm [Hg] Plan of Treatment Planned Activity Planned Date Details Comments Future Scheduled Test AGENCY MAY PERFORM A RESUMPTION OF CARE VISIT FOLLOWING ANY HOSPITAL ADMISSION. PHYSICAL THERAPY TO EVALUATE, ASSESS AND MONITOR, PROVIDE SKILLED THERAPEUTIC INTERVENTION, ACTIVITY, EDUCATION, AND TRAINING TO ADDRESS:BALANCE, TRANSFERS, GAIT, STAIRS, HEP, PAIN, AND ROM [code = AGENCY MAY PERFORM A RESUMPTION OF CARE VISIT FOLLOWING ANY HOSPITAL ADMISSION. PHYSICAL THERAPY TO EVALUATE, ASSESS AND MONITOR, PROVIDE SKILLED THERAPEUTIC INTERVENTION, ACTIVITY, EDUCATION, AND TRAINING TO ADDRESS:BALANCE, TRANSFERS, GAIT, STAIRS, HEP, PAIN, AND ROM] Future Scheduled Test TRANSFER T RAINING (PT) [code = TRANSFER TRAINING (PT)] Future Scheduled Test CAR TRANSF ER TRAINING - PT [code = CAR TRANSFER TRAINING - PT] Future Scheduled Test GAIT TRAIN ING (PT) [code = GAIT TRAINING (PT)] Future Scheduled Test STAIR TONY CRISTHIAN (PT) [code = STAIR TRAINING (PT)] Future Scheduled Test NEUROMUSCU LAR RE-EDUCATION / BALANCE RETRAINING (PT) [code = NEUROMUSCULAR RE-EDUCATION / BALANCE RETRAINING (PT)] Future Scheduled Test THERAPEUTI C EXERCISES (PT) [code = THERAPEUTIC EXERCISES (PT)] Future Scheduled Test ENERGY CON SERVATION (PT) [code = ENERGY CONSERVATION (PT)] Future Scheduled Test ORTHOPEDIC SURGICAL AFTERCARE (PT) MAY TEACH PATIENT APPLICATION OF CRYOTHERAPY FOR PAIN AND/OR SWELLING UP TO 20 MIN AT A TIME OVER INCISION/JOINT [code = ORTHOPEDIC SURGICAL AFTERCARE (PT) MAY TEACH PATIENT APPLICATION OF CRYOTHERAPY FOR PAIN AND/OR SWELLING UP TO 20 MIN AT A TIME OVER INCISION/JOINT] Future Scheduled Test KNEE REPLA CEMENT SELF-MANAGEMENT (PT) [code = KNEE REPLACEMENT SELF-MANAGEMENT (PT)] Future Scheduled Test HYPERTENSI ON SELF-MANAGEMENT (PT) [code = HYPERTENSION SELF-MANAGEMENT (PT)] Future Scheduled Test IDENTIFY F ALL RISK FACTORS AND ESTABLISH HOME EXERCISE PROGRAM TO MINIMIZE FALL RISK. MAY TEACH THE PATIENT FLOOR RECOVERY WHEN CLINICALLY APPROPRIATE (PT) [code = IDENTIFY FALL RISK FACTORS AND ESTABLISH HOME EXERCISE PROGRAM TO MINIMIZE FALL RISK. MAY TEACH THE PATIENT FLOOR RECOVERY WHEN CLINICALLY APPROPRIATE (PT)] Future Scheduled Test ANTICOAGUL ANT THERAPY - PHYSICAL THERAPY [code = ANTICOAGULANT THERAPY - PHYSICAL THERAPY ] Future Scheduled Test OXYGEN SAT URATION (PT). NOTIFY MD IF 02SATS BELOW 90% AFTER 10 MIN OF REST. [code = OXYGEN SATURATION (PT). NOTIFY MD IF 02SATS BELOW 90% AFTER 10 MIN OF REST.] Future Scheduled Test PAIN MANAG EMENT (PT) [code = PAIN MANAGEMENT (PT)] Future Scheduled Test PHYSICAL T HERAPY TO OBSERVE WOUND/INCISION AND/OR INTACT DRESSING ON LEFT KNEE AND REPORT EARLY SIGNS AND SYMPTOMS OF WOUND DETERIORATION, COMPLICATIONS, OR INFECTION TO RN CLINICAL ORACLE CONSULTANT AND/OR PHYSICIAN. DRESSING TO REMOVE ONE WEEK FROM SURGICAL DATE [code = PHYSICAL THERAPY TO OBSERVE WOUND/INCISION AND/OR INTACT DRESSING ON LEFT KNEE AND REPORT EARLY SIGNS AND SYMPTOMS OF WOUND DETERIORATION, COMPLICATIONS, OR INFECTION TO RN CLINICAL ORACLE CONSULTANT AND/OR PHYSICIAN. DRESSING TO REMOVE ONE WEEK FROM SURGICAL DATE] Future Scheduled Test PROVIDE IN CISION SITE CARE (PT) - PHYSICAL THERAPY TO PROVIDE CARE TO THE SURGICAL INCISION ON L KNEE REMOVE DRESING ON LEFT KNEE ON 05/01, DISCONTINUE CURRENT WOUND CARE ONCE THE WOUND IS CLOSED/HEALED OR THE MD CHANGES WOUND CARE ORDER [code = PROVIDE INCISION SITE CARE (PT) - PHYSICAL THERAPY TO PROVIDE CARE TO THE SURGICAL INCISION ON L KNEE REMOVE DRESING ON LEFT KNEE ON 05/01, DISCONTINUE CURRENT WOUND CARE ONCE THE WOUND IS CLOSED/HEALED OR THE MD CHANGES WOUND CARE ORDER] Future Scheduled Test PHYSICAL T HERAPY TO INSTRUCT PATIENT/CAREGIVER ON RISK FOR HOSPITALIZATION/EMERGENCY ROOM VISITS, TEACH SIGNS AND SYMPTOMS THAT PUT PATIENT AT RISK, WHEN TO NOTIFY NURSE/PHYSICIAN OF COMPLICATIONS/DECLINE, AND WHEN TO CALL 911. [code = PHYSICAL THERAPY TO INSTRUCT PATIENT/CAREGIVER ON RISK FOR HOSPITALIZATION/EMERGENCY ROOM VISITS, TEACH SIGNS AND SYMPTOMS THAT PUT PATIENT AT RISK, WHEN TO NOTIFY NURSE/PHYSICIAN OF COMPLICATIONS/DECLINE, AND WHEN TO CALL 911.] Goal 2023-05-09 Patient Goal - TO GET STRONG ER Goal Provider Goal - PT LTG: PATIENT WILL DEMONSTRATE IMPROVED TRANSFERS FROM MODAX1 TO INDEPENDENT WITH LRAD WITHIN 6WEEKS Goal Provider Goal - PT STG: PATIENT WILL BE ABLE TO PARTICIPATE IN CAR TRANSFERS TO ATTEND FOLLOW-UP MD APPOINTMENT Goal Provider Goal - PT LTG: PATIENT WILL DEMONSTRATE IMPROVED AMBULATION FROM CGA TO INDEPENDENT WITH LRAD WITHIN 6WEEKS PT LTG: PATIENT WILL DEMONSTRATE REDUCED FALL RISK EVIDENCED BY IMPROVED SELF- SELECTED WALKING SPEED (SSWS CUT SCORE 0.6 TO 0.9 INDICATES MODERATE FALL RISK, 0.6 M/S INDICATES HIGH FALL RISK) FROM UNABLE TO 1.1 WITHIN 6WEEKS Goal Provider Goal - PT LTG: PATIENT WILL DEMONSTRATE IMPROVED ABILITY TO SAFELY NEGOTIATE STAIRS FROM MODAX1 TO INDEPENDENT WITH RAILINGS WITHIN 6WEEKS Goal Provider Goal - PT LTG: PATIENT WILL DEMONSTRATE REDUCED FALL RISK EVIDENCED BY TUG TEST (CUT SCORE >11 SECONDS INDICATES INCREASED FALL RISK) IMPROVING FROM UNABLE TO 11 SECONDS WITHIN 6WEEKS Goal Provider Goal - PT LTG: PATIENT WILL DEMONSTRATE IMPROVED FUNCTIONAL STRENGTH EVIDENCED BY FIVE TIMES SIT TO STAND TEST (CUT SCORE >12 SECONDS INDICATES AN INCREASED FALL RISK) IMPROVING FROM UNABLE TO 12 WITHIN 2 WEEKS PT LTG: PATIENT WILL DEMONSTRATE INCREASED ROM OF KNEE FLEXION FROM 70 DEGREES TO 90 DEGREES WITHIN 2 WEEKS IN ORDER TO DECREASE LIKELIHOOD OF FALLS PT LTG: PATIENT WILL DEMONSTRATE INCREASED ROM OF KNEE EXTENSION FROM -5 DEGREES TO 0 DEGREES WITHIN 2 WEEKS IN ORDER TO DECREASE LIKELIHOOD OF FALLS PT LTG: PATIENT WILL DEMONSTRATE DECREASE PAIN FROM 8 TO 2 WITHIN 2 WEEKS IN ORDER TO DECREASE LIKELIHOOD OF FALLS Goal Provider Goal - PT LTG: PATIENT / CAREGIVER WILL DEMONSTRATE UNDERSTANDING OF ENERGY CONSERVATION MEASURES Goal Provider Goal - PATIENT WILL DEMONSTRATE NORMAL HEALING FOLLOWING SURGERY WITH NO COMPLICATIONS BY END OF EPISODE. Goal Provider Goal - PT GOAL: PATIENT WILL DEMONSTRATE OPTIMAL OUTCOMES, INCLUDING INCREASED ROM AND STRENGTH FOLLOWING TKA BY END OF EPISODE. Goal Provider Goal - PT GOAL: PATIENT/CAREGIVER WILL BE ABLE TO IDENTIFY SIGNS OF EXACERBATION OF HYPERTENSION AND WILL VERBALIZE/DEMONSTRATE AN ABILITY TO ADHERE TO HYPERTENSION SELF-MANAGEMENT AND LIFE-STYLE CHANGES AT DISCHARGE. Goal Provider Goal - PATIENT/CAREGIVER WILL DEMONSTRATE ADHERENCE TO FALL REDUCTION SELF MANAGEMENT TO MINIMIZE FALL BY END OF EPISODE. Goal Provider Goal - PT GOAL: PATIENT WILL NOT EXHIBIT SIGNS AND SYMPTOMS OF ANTICOAGULANT TOXICITY. Goal Provider Goal - PATIENT WILL MAINTAIN OXYGEN SATURATION WITHIN PHYSICIAN ORDERED PARAMETERS THROUGHOUT EPISODE OF CARE Goal Provider Goal - PT GOAL: PATIENT/CAREGIVER WILL VERBALIZE UNDERSTANDING OF PAIN MANAGEMENT BY END OF EPISODE. Goal Provider Goal - THE PATIENT WILL NOT DEMONSTRATE ANY WOUND COMPLICATIONS DURING THE EPISODE OF CARE. Goal Provider Goal - PT GOAL: PATIENT / CAREGIVER WILL VERBALIZE / DEMONSTRATE ABILITY TO PERFORM WOUND CARE. WOUND STATUS WILL IMPROVE EVIDENCED BY A DECREASE IN SIZE, DRAINAGE, ABSENCE OF INFECTION, AND DECREASED PAIN BY END OF EPISODE. Goal Provider Goal - PATIENT/CAREGIVER WILL VERBALIZE UNDERSTANDING OF SIGNS AND SYMPTOMS THAT PUT THE PATIENT AT RISK FOR HOSPITALIZATION /EMERGENCY ROOM VISITS, WHEN TO NOTIFY NURSE/PHYSICIAN OF COMPLICATIONS/DECLINE AND WHEN TO CALL 911. Reason for Visit INDEPENDENT IN THE HOME Encounters Start Date/Time End Date/Time Encounter Type Admission Type Attending [facility] Care Department Encounter ID Discharge Date Discharge Status Discharge Condition Discharge Reason Percent Goals Met 2023-04-27 00:00:00 2023-05-09 00:00:00 Outpatient NEW ADMISSION TODD OSULLIVAN [facility] [id number] 2023-05-09 00:00:00 DISCHARGE TO HOME OR SELF CARE INDEPENDEN T IN THE HOME HH ONLY - OUT PATIENT 100.00
--- OUTSIDE RECORDS SUMMARY | 2024-01-22 04:24 | XMS_ITS | Data Portability ---
Author Organization [facility], [facility] Address [address] [place] [address] Care Team Providers Care [employer] Senior Officer Name Role Phone FLAVIA PEARCE Primary Care Provider Assessment No assessment recorded. Plan of Treatment Reminders Order Date Submit Date Provider Last Modified By Organization Details Last Modified Time Details Appointments None record ed. Lab None record ed. Referral None record ed. Procedures None record ed. Surgeries None record ed. Imaging None record ed. Medication Orders None record ed. Patient TargetsNo targets recorded. Patient InstructionsNo instructions recorded. Reason for Referral None Reported. Results Created Date Observation Date Name Description Value Unit Range Abnormal Flag Note LastModifiedBy Organization Detail LastModifiedTime 10/11/19 24 06/12/2021 imagi ng/di agnos tic resul t No observ ation record ed. [email or web address] Not Available 09/13 06:16:32 Result Notes None recorded. Problems Name Problem SNOMED Code Status Onset Date Resolution Date Notes Provider Name and Address Organization Details Recorded Time No complaints 902951222 Active Status : 'I'; Not Available [facility] 4 09:11:42 Arthritis of right knee 1743004205261 102 Active 2023 Brandy Walter CNP [address], [place], [address] , [facility] 21:53:48 Problem Notes None recorded. Procedures Surgical History Date Name Laterality Status Provider Name and Address Organization Details Recorded Time Euflexxa Knee Injection completed Brandy Walter CNP [address], [place], [address], [facility] 06/07/2023 09:55:41 4 Euflexxa Knee Injection completed Dashawn Duque PA-C [address], [place], [address], [facility] 05/28/2023 21:01:43 4 Euflexxa Knee Injection completed Guido Hurst PA-C [address], [place], [address], [facility] 05/22/2023 07:35:35 Imaging Results Imaging Date Name Status LastModified by Organiz ation Details LastModified Time 06/12/2021 imaging/diag nostic result completed [email or web address] Information not available 10/11/2023 06:16:32 Procedure Notes None recorded. Medical Equipment None Reported. Allergies No known drug allergies Medications Name Sig Start Date Stop Date Status Note LastModified by Organization Details LastModified Time acetaminoph en 325 mg tablet TAKE 1 TABLET BY MOUTH EVERY 6 (SIX) HOURS NEEDED ( NEEDED FOR MODERATE PAIN (4-6)). active Not Available Not Available No t Available sildenafil 50 mg tablet 05/21 completed Not Available Not Available Not Available clomiphene citrate 50 mg tablet TAKE 1 TABLET BY MOUTH TWICE A WEEK ON SATURDAY AND SATURDAY NOT COVERED 05/21 completed Not Available Not Available Not Available senna 8.6 mg tablet TAKE TWO TABLETS BY MOUTH EVERY TWELVE HOURS NEEDED FOR CONSTIPAT ION UNTIL BOWEL MOVEMENT has returned TO normal 05/21 completed Not Available Not Available Not Available omeprazole 40 mg capsule,del ayed release TAKE 1 CAPSULE BY MOUTH EVERY DAY active Not Available Not Available No t Available minoxidil 2.5 mg tablet TAKE 2 TABLETS (2 X 2.5 MG) ORALLY DAILY FOR 90 DAYS active Not Available Not Available No t Available aspirin 81 mg tablet,arin yed release TAKE ONE TABLET BY MOUTH TWICE DAILY active Not Available Not Available No t Available sildenafil 100 mg tablet PLEASE SEE ATTACHED FOR DETAILED DIRECTION S active Not Available Not Available No t Available meloxicam 7.5 mg tablet take 1 tablet by mouth daily active Not Available Not Available No t Available simvastatin 20 mg tablet TAKE 1 TABLET BY MOUTH EVERYDAY AT BEDTIME active Not Available Not Available No t Available pseudoephed rine-guaife nesin ER 80-700 mg tablet,exte nded release Percocet 5-325MG Tablet 1-2 Q 4-6 Hours Prn 05/21 completed Statu s: 'Curr ent'; Not Available Not Available Not Available lisinopril 10 mg tablet TAKE 1 TABLET BY MOUTH EVERY DAY active Not Available Not Available No t Available docusate sodium 100 mg capsule TAKE ONE CAPSULE BY MOUTH EVERY TWELVE HOURS FOR CONSTIPAT ION active Not Available Not Available No t Available hydrochloro thiazide 25 mg tablet TAKE 1 TABLET BY MOUTH EVERY DAY 05/21 completed Not Available Not Available Not Available levofloxaci n 500 mg tablet PLEASE SEE ATTACHED FOR DETAILED DIRECTION S 05/21 completed Not Available Not Available Not Available lisinopril 40 mg tablet TAKE 1 TABLET BY MOUTH EVERY DAY 05/21 completed Not Available Not Available Not Available ondansetron 4 mg disintegrat ing tablet DISSOLVE ONE TABLET ON THE TONGUE EVERY 8 HOURS NEEDED FOR NAUSEA AND VOMITING 05/21 completed Not Available Not Available Not Available finasteride 5 mg tablet TAKE 1 TABLET BY MOUTH EVERY DAY FOR 90 DAYS active Not Available Not Available No t Available oxycodone 5 mg tablet TAKE 1 OR 2 TABLETS BY MOUTH EVERY 4 HOURS NEEDED PAIN 05/21 completed Not Available Not Available Not Available tadalafil 5 mg tablet TAKE 1 TABLET BY MOUTH DAILY FOR SEXUAL ACTIVITY FOR 90 DAYS active Not Available Not Available No t Available tadalafil 20 mg tablet TAKE 1 TABLET BY MOUTH 60 MINUTES BEFORE INTENDED ACTIVITY DO NOT EXCEED 1 TABLET DAILY 05/21 completed Not Available Not Available Not Available tadalafil Tadalafil 5MG Tablet 05/21 completed Statu s: 'Curr ent'; Not Available Not Available Not Available diclofenac 1 % topical gel APPLY 4 G TOPICALLY 3 TIMES DAILY. 05/21 completed Not Available Not Available Not Available tranexamic acid 650 mg tablet 05/21 completed Not Available Not Available Not Available Anoro Ellipta 62.5 mcg-25 mcg/actuati on powder for inhalation TAKE 1 PUFF BY MOUTH EVERY DAY active Not Available Not Available No t Available Vitals Date Recorded Body weight Body mass index (BMI) Body height Provider Name and Address Organization Details Last Updated DateTime 05/22/2023 02573.4 g 30.1 kg/m2 177.8 cm JAKEEDILMA SANJEEV [facility] 05/22/2023 09:11:55 Date Recorded Body height Body mass index (BMI) Body weight Provider Name and Address Organization Details Last Updated DateTime 05/29/2023 177.8 cm 30.1 kg/m2 59991.4 g Marvin Barreto [facility] 05/29/2023 08:50:54 Date Recorded Body height Body mass index (BMI) Body weight Provider Name and Address Organization Details Last Updated DateTime 06/07/2023 177.8 cm 30.1 kg/m2 24604.4 g TENZIN GARRETT [facility] 06/07/2023 09:10:28 Social History Question Answer Notes LastModified by Organizat ion Details LastModified Time Tobacco Smoking Status Never Smoker PEREZ kolb [facility] 05/22/2023 09:13:58 What Is Your Level Of Alcohol Consumption? Occasional Information not available 05/22/2023 How Many Times Per Week Do You Consume Alcohol? Less Than 1 Time Per Week Information not available 05/22/2023 Have You Ever Been Counseled For Unhealthy Alcohol Use? No Information not available 05/22/2023 What Is Your Relationship Status? Single Information not available 05/22/2023 Do You Use Any Illicit Or Recreational Drugs? No Information not available 05/22/2023 Do You Or Have You Ever Used Any Other Forms Of Tobacco Or Nicotine? No Information not available 05/22/2023 Sex: Unknown Functional Status None recorded. Mental Status None recorded. Family History Nothing Reported. Medical History Condition Response Coronary Artery Disease N Anxiety/Depression N Emphysema N COPD N Pacemaker N Vascular Disease N Gastrointestinal Disease N Autoimmune disease N Orthotics N Arthritis Y Blood Clot N Acid Reflux (GERD) Y Cancer Y Stroke N Rheumatoid Arthritis N Arrhythmia N Fibromyalgia N Allergies/Hayfever N Thyroid Problems N Anemia N Kidney/Bladder Problems N Heart Attack (NH) N Diabetes N Bleeding Disorder N Seizures/Epilepsy N AIDS/HIV N Congestive Heart Failure (CHF) N Asthma N Peripheral Vascular Disease N Sleep Apnea N Hepatitis N Heart Disease N Pulmonary Embolism N Hypertension Y Osteoporosis N Past Encounters Encounter ID Performer Location Encounter Start Date Encounter Closed Date Diagnosis/Indication Diagnosis SNOMED-CT Code Diagnosis ICD10 Code [id number] Guido Hurst PA-C [address] [address] [place] [address] 05/22/2023 08:58:50 06/12/2023 11:59:20 Osteoarthritis of right knee joint 7401507181 29105 M17.11 [id number] Dashawn Duque PA-C [place] [address] [place] [address] 05/29/2023 08:34:56 05/29/2023 09:44:28 Osteoarthritis of right knee joint 0381380803 36682 M17.11 [id number] Brandy Walter, [facility] [address] [address] [place] [address] 06/07/2023 08:57:59 06/21/2023 08:40:10 Arthritis of right knee 7158464910 480027 M13.861 Health Concerns Section Related Observation LastModified by Organization Detai ls LastModified Time None Recorded Concern Status LastModified by Organization Details LastModified Time None Recorded Advance Directives Directive None Recorded Payers Encounter Date Sequence Insurance Name Policy Number Policy Mcclure Covered Member ID Mcclure Member ID Guarantor Name 05/22/2023 1 [employer] (MEDICARE REPLACEMENT PPO) [id number] Iker Duran [id number] Iker Duran 05/29/2023 1 [employer] (MEDICARE REPLACEMENT PPO) [id number] Iker Duran [id number] Iker Duran 06/07/2023 1 [employer] (MEDICARE REPLACEMENT PPO) [id number] Iker Duran [id number] Iker Duran Notes Date Note Type Note Provider Name and Address Organization Details Recorded Time 05/22/2023 text/html I am seeing the patient today under the supervision of Dr. Mosqueda who was available but did not see the patient. Guido Hurst PA-C [address], [place], [address], [facility] 05/22/2023 09:37:43 06/07/2023 text/html Iker is here fo r his third euflexxa injection in the right knee. Brandy Walter, DENTAL PRACTITIONER [address], [place], [address], [facility] 06/07/2023 09:55:54
--- OUTSIDE RECORDS SUMMARY | 2024-01-22 04:24 | XMS_ITS ---
Author Name [facility] Organization Unknown Results Test Name/Text Value Interpretation Date Range Source MSSA NASAL PCR NEGATIVE Normal [id number] - [facility] MRSA NASAL PCR NEGATIVE Normal [id number] - [facility] ANION GAP 11 Normal 3 - 11 [facility] ALKALINE PHOSPHATASE 95U/L Normal 45 - 1 29 [facility] CARBON DIOXIDE (CO2) 22mmol/L Normal 20 - 3 1 [facility] BILIRUBIN,TOTAL 0.5mg/dL Normal 0.2 - 1.2 C [facility] GLUCOSE 99mg/dL Normal 65 - 100 [facility] POTASSIUM, SERUM 3.8mmol/L Normal 3.5 - 5.2 [facility] BLOOD UREA NITROGEN 17mg/dL Normal 9 - 23 [facility] CALCIUM 9.5mg/dL Normal 8.4 - 10.5 [facility] CREATININE 1.2mg/dL Normal 0.5 - 1.3 [facility] ALBUMIN/GLOBULIN RATIO 1.6 Normal 1 - 2.2 [facility] AST/SGOT 15U/L Normal 0 - 34 [facility] ALT/SGPT 15U/L Normal 15 - 67 [facility] SODIUM 140mmol/L Normal 132 - 146 [facility] EST GLOMERULAR FILTRATION RATE 60ml/min Normal [id number] [facility] TOTAL PROTEIN 7g/dL Normal [id number] 6.2 - 8.1 [facility] ALBUMIN 4.3g/dL Normal 3.5 - 5 [facility] CHLORIDE 107mmol/L Normal 99 - 109 [facility] BUN/CREATININE RATIO 14.2 Normal 10 - 2 0 [facility] MEAN PLATELET VOLUME 10fL Normal 9 - 12 .8 [facility] MONO # 0.4K/mm3 Normal 0.1 - 1.1 [facility] BASO % 0.5% Normal 0 - 2 [facility] RED BLOOD COUNT 4.01M/mm3 Normal 4 - 5.9 C [facility] BASO # 0K/mm3 Normal 0 - 0.2 [facility] LYMPH % 19.8% Normal 15 - 42 [facility] EOS # 0.1K/mm3 Normal 0 - 0.5 [facility] EOS % 1.9% Normal 0 - 5 [facility] NUCLEATED RED BLOOD CELL 0K/mm3 Normal 0 - 0.012 [facility] MONO % 6.9% Normal 4 - 11 [facility] WHITE BLOOD COUNT 5.7k/mm3 Normal 4 - 10 [facility] MEAN CORPUSCULAR HEMOGLOBIN 29.7pg Normal 26.2 - 32.6 [facility] PLATELET COUNT 276K/mm3 Normal 130 - 385 [facility] IMMATURE GRANULOCYTE 0.5% Normal 0 - 0. 5 [facility] NEUTROPHILS % 70.4% Normal [id number] 46 - 75 [facility] MEAN CORPUSCULAR HGB CONC 34.7g/dL Above high normal 32.1 - 34.5 [facility] RED CELL DISTRIBUTION WIDTH 12.6% Normal 11.5 - 15.6 [facility] MEAN CORPUSCULAR VOLUME 85.5fL Normal 80 - 98 [facility] LYMPH # 1.1K/mm3 Normal 0.6 - 4.2 [facility] HEMATOCRIT 34.3% Below low normal [id number] 38.6 - 50 [facility] IMMATURE GRANULOCYTE 0.03K/mm3 Normal 0 - 0. 05 [facility] NUCLEATED RED BLOOD CELL 0% Normal 0 - 0.2 [facility] HEMOGLOBIN 11.9g/dL Below low normal 13.2 - 17 .2 [facility] NEUTROPHILS # 4K/mm3 Normal 1.84 - 7.5 [facility] PROTHROMBIN TIME (PATIENT) 13.1seconds Normal [id number] 10 - 13.2 [facility] PARTIAL THROMBOPLASTIN TIME 35seconds Normal [id number] 25 - 36.5 [facility] INR 1.1 Normal [id number] 0.9 - 1.1 [facility] MRSA SOURCE NASAL Normal [id number] [facility]
== END 2024-01-16 16:05 | disposition home or self-care (01) ==
LOC: HO.LAB 16:04
PROVIDERS: PCP Internal Medicine; Visit Provider Urology
DX: C61 Malignant neoplasm of prostate (principal); Z12.5 Encounter for screening for malignant neoplasm of prostate
CPT/HCPCS: 36415; 84153; 84403

== ENCOUNTER 2024-01-28 11:09 | Outpatient (AMB) | payer MEDICARE, SELFPAY ==
--- NOTE | 2024-01-28 11:25 | MHC.OFFVIS ---
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 He is a patient of Dr Hazel. He is seen for the following urologic conditions. - balanitis - lower urinary tract symptoms - erectile dysfunction - male pattern baldness Lab work - 10/04 2.2 T 415, 02/03 2.8 412 Based on genetic indeterminate would recommend active surveillance for a 73-year-old at this point in time Four month follow-up protocol PSA Re-biopsy at 18-24 months using MRI fusion targeting Had evaluation at the [facility] that had suggested RT versus RP but this decision making was performed without knowledge of genetic evaluation. Requested refills for minoxidil, Cialis brand name, sildenafil on demand Prostate cancer - 01/03 - grade group 2, low volume Diagnosed by Dr. Ribeiro PSA at diagnosis 4.9 TRUS volume 55g Histologic type: Adenocarcinoma, acinar type Trinity score: 7 (3+4) (right base lateral 30% and medial 40%), 6 (3+3) (right mid lateral 15%) % of pattern 4: 32% Grade group: 2 and 1 Tumor quantitation: Number cores positive: 4 Total number of cores: 12 - % of tissue involved: 13% Periprostatic fat inv.: Not identified Seminal vesicle inv.: Not identified Perineural inv.: Present Lymphovascular invasion: Not identified Fitwall - 01/03 Prolaris molecular score: 2.6. Test recommendation for possible treatment path: Based on the Prolaris molecular score and clinical variables, this patient may be a candidate for active surveillance. Personalized risk results: 10 year risk of disease specific mortality (DSM) with conservative management: 1.7%. 10 year risk of prostate cancer metastasis with single-modal treatment: 0.6% 10 year risk prostate cancer metastasis with RT plus ADT: 0.4 05/04 MRI [facility] Prostate size 50 g. 8 mm focal lesion right peripheral zone base PI-RADS 4, 7 mm right peripheral zone mid PI-RADS 4, 1.4 cm left peripheral zone base posterolateral PI-RADS 4. No lymphadenopathy. Seminal vesicles normal Male pattern baldness Trial minoxidil 5 mg Hypogonadism Low T initial - 07/02 T 280, FT 7, 10/02 T 320 Free 7, 07/03 T 490 E 25 PSA 8.6 Daily Clomiphene - 01/02 T 624 =, LH 22, FSH 13.9 Good response to Clomiphene Estradiol normal range, remain on Saturday and dosing Erectile dysfunction Has been using daily 5mg tadalafil with on demand 20mg Lower urinary tract symptoms They are here for further management for incomplete emptying neurogenic bladder, - seen in September 15. Given opioids with retention. Malik placed September 17 2015 Background of obstructive symptoms on cialis 5mg daily. Has been doing well on daily Cialis. Stopped Flomax. Has minimal issues with urination.. Urinary retention initially found after ER visit for spontaneous retention. Voiding trial outcome passed second voiding trial. Current management Therapeutic plan continue with medication. PSA 03/30 1.2, PSA 04/01 1.6. [facility] Medical History History of retained foreign body fully removed Glaucoma Iron (Fe) deficiency anemia GERD (gastroesophageal reflux disease) Hypercholesteremia HTN (hypertension) Hemorrhoids Incomplete emptying of bladder BPH (benign prostatic hyperplasia) Erectile dysfunction Surgical History History of colonoscopy Results AMB Urinalysis, Automated UA Leukoctes 0 Samara/uL Last Edit by JOSE Rutledge on 01/28/24 11:54 UA Nitrite Negative Last Edit by JOSE Rutledge on 01/28/24 11:54 UA Urobilinogen 0.2 mg/dL Last Edit by JOSE Rutledge on 01/28/24 11:54 UA Protein 0 mg/dL Last Edit by JOSE Rutledge on 01/28/24 11:54 UA pH 6.0 Last Edit by JOSE Rutledge on 01/28/24 11:54 UA Blood 0 Juan/uL Last Edit by JOSE Rutledge on 01/28/24 11:54 UA Specific [place] 1.010 Last Edit by JOSE Rutledge on 01/28/24 11:54 UA Ketone Negative Last Edit by JOSE Rutledge on 01/28/24 11:54 UA Bilirubin 0 mg/dL Last Edit by JOSE Rutledge on 01/28/24 11:54 UA Glucose 0 mg/dL Last Edit by JOSE Rutledge on 01/28/24 11:54 Results Reviewed Results Reviewed: Laboratory Last Values Urine pH (Auto) 6.0 01/28/24 11:53 Specific [place] (Auto) 1.010 01/28/24 11:53 Urine Protein (Auto) 0 mg/dL 01/28/24 11:53 Glucose (UA)(Auto) 0 mg/dL 01/28/24 11:53 Urine Ketones (Auto) Negative 01/28/24 11:53 Urine Blood (Auto) 0 Juan/uL 01/28/24 11:53 Urine Nitrite (Auto) Negative 01/28/24 11:53 Urine Bilirubin (Auto) 0 mg/dL 01/28/24 11:53 Urine Urobilinogen (Auto) 0.2 mg/dL 01/28/24 11:53 Leukocyte Esterase (Auto) 0 Samara/uL 01/28/24 11:53 Assessment & Plan Assessment & Plan Orders: Orders AMB Urinalysis Automated Today Z13.9 - Encounter for screening, unspecified Coding
--- OUTSIDE RECORDS SUMMARY | 2024-01-28 11:26 | XMS_ITS | Clinical Summary ---
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) USE OF OPIATE ANALGESIC Active 04-26 00:00: 00 NURSING HOME (CURRENT) USE OF ASPIRIN Active 02-11 00:00: [...] powder for inhalation 04-25 00:00: 00 Yes [id number] SHORTNESS OF BREATH 1 inhalat ion NEEDED 1 inhalation NEEDED (route: inhalation ) Med Classific ation: Respirato ry Therapy Agents acetaminoph en 325 mg tablet 04-24 00:00: 00 Yes [id number] PAIN Per instruc tions every 8 hours as needed for pain for 7 days as needed every 6 hours Per instructio ns every 8 hours as needed for pain for 7 days as needed every 6 hours (route: oral) Med Classific ation: Analgesic , Anti-infl ammatory or Antipyret ic aspirin 81 mg tablet,arin yed release 04-24 00:00: 00 Yes [id number] BLOOD THINNER 1 tablet TWICE DAILY 1 tablet TWICE DAILY (route: oral) Med Classific ation: Hematolog ical Agents docusate sodium 100 mg capsule 04-24 00:00: 00 Yes [id number] CONSTIPATIO N 1 capsule EVERY TWELVE HOURS 1 capsule EVERY TWELVE HOURS (route: oral) Med Classific ation: Gastroint estinal Therapy Agents meloxicam 7.5 mg tablet 04-24 00:00: 00 Yes [id number] ANTI-INFLAM MATORY 1 tablet daily 1 tablet daily (route: oral) Med Classific ation: Analgesic , Anti-infl ammatory or Antipyret ic ondansetron 4 mg disintegrat ing tablet 04-24 00:00: 00 Yes [id number] NAUSEA AND VOMITING 1 tablet EVERY 8 HOURS NEEDED 1 tablet EVERY 8 HOURS NEEDED (route: oral) Med Classific ation: Gastroint estinal Therapy Agents oxycodone 5 mg tablet 04-24 00:00: 00 Yes [id number] SEVERE PAIN 1-2 tablet EVERY 4 HOURS NEEDED 1-2 tablet EVERY 4 HOURS NEEDED (route: oral) Med Classific ation: Analgesic , Anti-infl ammatory or Antipyret ic senna 8.6 mg tablet 04-24 00:00: 00 Yes [id number] CONSTIPATIO N 2 tablet EVERY TWELVE HOURS NEEDED 2 tablet EVERY TWELVE HOURS NEEDED (route: oral) Med Classific ation: Gastroint estinal Therapy Agents simvastatin 20 mg tablet 2024-0 3-14 00:00: 00 Yes [id number] HLD 1 tablet DAILY 1 tablet DAILY (route: oral) Med Classific ation: Cardiovas cular Therapy Agents tadalafil 5 mg tablet 04-24 00:00: 00 04-26 00:00 :00 No [id number] Per instruc tions Per instructio ns (route: oral) Med Classific ation: Drugs to treat Erectile Dysfuncti on tranexamic acid 650 mg tablet 04-24 00:00: 00 04-26 00:00 :00 No [id number] Per instruc tions Per instructio ns (route: oral) Med Classific ation: Hematolog ical Agents hydrochloro thiazide 25 mg tablet 04-17 00:00: 00 Yes [id number] HTN 1 tablet EVERY DAY 1 tablet EVERY DAY (route: oral) Med Classific ation: Cardiovas cular Therapy Agents omeprazole 40 mg capsule,del ayed release 04-16 00:00: 00 Yes [id number] GERD 1 capsule EVERY DAY 1 capsule EVERY DAY (route: oral) Med Classific ation: Gastroint estinal Therapy Agents finasteride 5 mg tablet 04-08 00:00: 00 Yes [id number] BPH 1 tablet EVERY DAY FOR 90 DAYS 1 tablet EVERY DAY FOR 90 DAYS (route: oral) Med Classific ation: Genitouri nary Therapy tadalafil 20 mg tablet 03-27 00:00: 00 04-26 00:00 :00 No [id number] Per instruc tions 60 MINUTES DAILY Per instructio ns 60 MINUTES DAILY (route: oral) Med Classific ation: Drugs to treat Erectile Dysfuncti on lisinopril 40 mg tablet 04-26 00:00: 00 Yes [id number] HTN 1 tablet DAILY 1 tablet DAILY [...] DETERIORATION, COMPLICATIONS, OR INFECTION TO RN CLINICAL WATER PURIFIER AND/OR PHYSICIAN. DRESSING TO REMOVE ONE WEEK FROM SURGICAL DATE [code = PHYSICAL THERAPY TO OBSERVE WOUND/INCISION AND/OR INTACT DRESSING ON LEFT KNEE AND REPORT EARLY SIGNS AND SYMPTOMS OF WOUND DETERIORATION, COMPLICATIONS, OR INFECTION TO RN CLINICAL WATER PURIFIER AND/OR PHYSICIAN. DRESSING TO REMOVE ONE WEEK [...] End Date/Time Encounter Type Admission Type Attending [facility] Care Department Encounter ID Discharge Date Discharge Status Discharge Condition Discharge Reason Percent Goals Met 2023-04-27 00:00:00 2023-05-09 00:00:00 Outpatient NEW ADMISSION TODD OSULLIVAN [facility] [id number] 2023-05-09 00:00:00 DISCHARGE TO HOME OR SELF CARE INDEPENDEN T IN THE HOME HH ONLY - OUT PATIENT 100.00
--- OUTSIDE RECORDS SUMMARY | 2024-01-28 11:27 | XMS_ITS | Clinical Summary ---
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 ANALGESIC Active 04-26 00:00: 00 [facility] (CURRENT) USE OF ASPIRIN Active 02-11 00:00: [...] powder for inhalation 04-25 00:00: 00 Yes [id number] SHORTNESS OF BREATH 1 inhalat ion NEEDED 1 inhalation NEEDED (route: inhalation ) Med Classific ation: Respirato ry Therapy Agents acetaminoph en 325 mg tablet 04-24 00:00: 00 Yes [id number] PAIN Per instruc tions every 8 hours as needed for pain for 7 days as needed every 6 hours Per instructio ns every 8 hours as needed for pain for 7 days as needed every 6 hours (route: oral) Med Classific ation: Analgesic , Anti-infl ammatory or Antipyret ic aspirin 81 mg tablet,arin yed release 04-24 00:00: 00 Yes [id number] BLOOD THINNER 1 tablet TWICE DAILY 1 tablet TWICE DAILY (route: oral) Med Classific ation: Hematolog ical Agents docusate sodium 100 mg capsule 04-24 00:00: 00 Yes [id number] CONSTIPATIO N 1 capsule EVERY TWELVE HOURS 1 capsule EVERY TWELVE HOURS (route: oral) Med Classific ation: Gastroint estinal Therapy Agents meloxicam 7.5 mg tablet 04-24 00:00: 00 Yes [id number] ANTI-INFLAM MATORY 1 tablet daily 1 tablet daily (route: oral) Med Classific ation: Analgesic , Anti-infl ammatory or Antipyret ic ondansetron 4 mg disintegrat ing tablet 04-24 00:00: 00 Yes [id number] NAUSEA AND VOMITING 1 tablet EVERY 8 HOURS NEEDED 1 tablet EVERY 8 HOURS NEEDED (route: oral) Med Classific ation: Gastroint estinal Therapy Agents oxycodone 5 mg tablet 04-24 00:00: 00 Yes [id number] SEVERE PAIN 1-2 tablet EVERY 4 HOURS NEEDED 1-2 tablet EVERY 4 HOURS NEEDED (route: oral) Med Classific ation: Analgesic , Anti-infl ammatory or Antipyret ic senna 8.6 mg tablet 04-24 00:00: 00 Yes [id number] CONSTIPATIO N 2 tablet EVERY TWELVE HOURS NEEDED 2 tablet EVERY TWELVE HOURS NEEDED (route: oral) Med Classific ation: Gastroint estinal Therapy Agents simvastatin 20 mg tablet 2024-0 3-14 00:00: 00 Yes [id number] HLD 1 tablet DAILY 1 tablet DAILY (route: oral) Med Classific ation: Cardiovas cular Therapy Agents tadalafil 5 mg tablet 04-24 00:00: 00 04-26 00:00 :00 No [id number] Per instruc tions Per instructio ns (route: oral) Med Classific ation: Drugs to treat Erectile Dysfuncti on tranexamic acid 650 mg tablet 04-24 00:00: 00 04-26 00:00 :00 No [id number] Per instruc tions Per instructio ns (route: oral) Med Classific ation: Hematolog ical Agents hydrochloro thiazide 25 mg tablet 04-17 00:00: 00 Yes [id number] HTN 1 tablet EVERY DAY 1 tablet EVERY DAY (route: oral) Med Classific ation: Cardiovas cular Therapy Agents omeprazole 40 mg capsule,del ayed release 04-16 00:00: 00 Yes [id number] GERD 1 capsule EVERY DAY 1 capsule EVERY DAY (route: oral) Med Classific ation: Gastroint estinal Therapy Agents finasteride 5 mg tablet 04-08 00:00: 00 Yes [id number] BPH 1 tablet EVERY DAY FOR 90 DAYS 1 tablet EVERY DAY FOR 90 DAYS (route: oral) Med Classific ation: Genitouri nary Therapy tadalafil 20 mg tablet 03-27 00:00: 00 04-26 00:00 :00 No [id number] Per instruc tions 60 MINUTES DAILY Per instructio ns 60 MINUTES DAILY (route: oral) Med Classific ation: Drugs to treat Erectile Dysfuncti on lisinopril 40 mg tablet 04-26 00:00: 00 Yes [id number] HTN 1 tablet DAILY 1 tablet DAILY [...] DETERIORATION, COMPLICATIONS, OR INFECTION TO RN CLINICAL BRIDGE IRONWORKER AND/OR PHYSICIAN. DRESSING TO REMOVE ONE WEEK FROM SURGICAL DATE [code = PHYSICAL THERAPY TO OBSERVE WOUND/INCISION AND/OR INTACT DRESSING ON LEFT KNEE AND REPORT EARLY SIGNS AND SYMPTOMS OF WOUND DETERIORATION, COMPLICATIONS, OR INFECTION TO RN CLINICAL BRIDGE IRONWORKER AND/OR PHYSICIAN. DRESSING TO REMOVE ONE WEEK [...] End Date/Time Encounter Type Admission Type [facility]ending [facility] Care Department Encounter ID Discharge Date Discharge Status Discharge Condition Discharge Reason Percent Goals Met 2023-04-27 00:00:00 2023-05-09 00:00:00 Outpatient NEW ADMISSION TODD OSULLIVAN [facility] [id number] 2023-05-09 00:00:00 DISCHARGE TO HOME OR SELF CARE INDEPENDEN T IN THE HOME HH ONLY - OUT PATIENT 100.00
== END 2024-01-28 12:15 | disposition home or self-care (01) ==
PROVIDERS: PCP Internal Medicine; Visit Provider Urology
DX: Z13.9 Encounter for screening, unspecified (principal)

== ENCOUNTER → 2024-01-28 11:09 | Outpatient (BNVA) | payer MEDICARE, SELFPAY | PROVIDERS: PCP Internal Medicine; Visit Provider Urology | DX: N52.9 Male erectile dysfunction, unspecified (principal); R68.82 Decreased libido; C61 Malignant neoplasm of prostate | CPT/HCPCS: 81003; 99212 ==

== ENCOUNTER 2024-05-15 12:51 | Outpatient (REF) | payer MEDICARE, SELFPAY ==
[2024-05-15 14:12] LABS: Prostate Specific Antigen 2.24 ng/mL (<0.05-4.0)
--- OUTSIDE RECORDS SUMMARY | 2024-05-15 14:41 | XMS_ITS | Clinical Summary ---
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 IMPRESSION: No visualized abdominal aortic aneurysm. Procedure Note Sonia Solares MD - 03/15/2023 US ABDOMINAL AORTA REAL TIME SCREEN STUDY AAA ABDOMINAL AORTA SCREENING ULTRASOUND History: Comparison: None. FINDINGS: The proximal aorta measures 2.6 cm in diameter. The mid aortameasures 1.9 cm in diameter. The distal aorta measures 1.6 cm in diameter. No periaorticfluid collection is seen. The aortic bifurcation is normal in appearance. The proximal bilateralcommon iliac arteries are normal in caliber. IMPRESSION: IMPRESSION: No visualized abdominal aortic aneurysm. Brigido BUCKLEY IMG US PROCEDURES Final Result from Last 3 Months or Most Recently Relevant to Health Maintenance Insurance [employer] MEDICARE ADVANTAGE Care Teams Graphic Illustrator Relationship Specialty Start Date End Date Veto Hazel MD [address] [place] [id number] PCP - General Internal Medicine 12/31/23
--- OUTSIDE RECORDS SUMMARY | 2024-05-15 14:41 | XMS_ITS | Clinical Summary ---
Author Organization [facility] Address [address] [place] [address] Care Team Providers Care Leather Novelty Parts Cutter Name Role Phone Ilir PEPPER MD, Veto Sierra Primary Care Provider [phone] Allergies Active Allergy Reactions Criticality Noted Date Comments Naproxen Abdominal Pain 12/25/2019 Gi bleed Medications lisinopriL (PRINIVIL,ZESTR IL) 40 mg tablet Take 20 mg by mouth once a day. 04/27/2023 Active minoxidiL (LONITEN) 2.5 mg tablet Take 2.5 mg by mouth once a day. 10/17/2022 Active simvastatin (ZOCOR) 20 mg tablet Take 20 mg by mouth nightly. Active finasteride (PROSCAR) 5 mg tablet Take 1 tablet by mouth once a day. Active tadalafil (CIALIS) tablet 20 mg Take 20 mg by mouth daily as needed for erectile dysfunction. Active Social History Tobacco Use Types Packs/Day Years Used Date Smoking Tobacco: Former Cigarettes Smokeless Tobacco: Never Tobacco Cessation:Counseling Given: Not Answered Sex and Gender Information Value Date Recorded Sex Assigned at Male 06/26/2023 10:14 AM EDT Legal Sex Male 1:59 PM EDT Gender Identity Male 06/26/2023 10:14 AM EDT Sexual Orientation Straight 06/26/2023 10 :14 AM EDT Last Filed Vital Signs Vital Sign Reading Time Taken Comments Blood Pressure 173/90 07/18/2023 1:28 PM EDT Pulse 73 07/18/2023 1:28 PM EDT Temperature - - Respiratory Rate - - Oxygen Saturation - - Inhaled Oxygen Concentration - - Weight - - Height - - Body Mass Index - - Plan of Treatment Health Maintenance Due Date Last Done Comments Cologuard 1950 Colon Cancer Screening 1950 Colonoscopy 1950 FOBT / Fit Test 1950 Hepatitis C Screening [address] Lung Cancer Screening (Baseline) 01/19/2002 RSV Vaccine (60+ years old and patients) (1 - Risk 60-74 years 1-dose series) 2012 Abdominal Aortic Aneurysm (AAA) Screening 01/19/2017 COVID-19 Vaccine ( season) 2023 11/28/2021, 05/25/2021, 12/08/2020, Additional history exists Alcohol/Substance Use Screening 02/12/2024 Depression Screening and Follow-Up 02/12/2024 Health Care Proxy Review 02/12/2024 Social Drivers of Health Annual Screening 02/12/2024 Influenza Vaccine (Season Ended) 2024 10/24/2022, 11/10/2021, 12/08/2020, Additional history exists DTaP,Tdap,and Td Vaccines (3 - Td or Tdap) 08/04/2031 08/03/2021, 05/14/2011 Pneumococcal Vaccine: 50+ Years Completed 04/21/2018, 02/19/2017 Zoster Vaccines Completed 01/05/2020, 08/0 10/2019, 12/10/2018, Additional history exists Hepatitis B Vaccines Aged Out No long er eligible based on patient's age to complete this topic Insurance AETNA MCR Care Teams Leather Novelty Parts Cutter Relationship Specialty Start Date End Date Veto Hazel III, MD PCP - General Internal Medicine 05/29/23
--- OUTSIDE RECORDS SUMMARY | 2024-05-15 14:41 | XMS_ITS ---
Author Organization [facility] [address] [place] [address] Address [address] [place] [address] Phone Care Team Providers Care Supervisor Name Role Phone Veto Hazel MD Primary Care Provider [phone] Active Problems Problem Noted Date Diagnosed Date [...] necessary until 2016. Essential hypertension, benign 09/03/2005 Current Oncology Plans No current plan information found. Past Plans No past plan information found. Radiation Treatments * No radiation treatments are [facility]. Treatments may have been administered in another system. Lifetime Dose Tracking * Chemical Lifetime Dose Automatic Entry Manual Entr y Radiation (DLP) 115.6 mGy-cm 115.6 mGy-cm 0 mGy-cm CTDIvol 3.22 mGy 3.22 mGy 0 mGy
--- OUTSIDE RECORDS SUMMARY | 2024-05-15 14:41 | XMS_ITS | Referral Summary ---
Author Organization [facility] Address [address] [place] [address] Care Team Providers Care Asp Net Programmer Name Role Phone Ilir PEPPER MD, Veto Sierra Primary Care Provider [phone] Allergies Active Allergy Reactions Criticality Noted Date [...] Mass Index - - Plan of Treatment Not on file Insurance AET[employer] MCR Care Teams Asp Net Programmer Relationship Specialty Start Date End Date Veto Hazel III, MD PCP - General Internal Medicine 05/29/23
--- OUTSIDE RECORDS SUMMARY | 2024-05-15 14:41 | XMS_ITS | Clinical Summary ---
Author Organization [facility] Address [address] [place] [address] Care Team Providers Care Angle Shear Set Up Operator Name Role Phone Pcp, Monika MD Primary Care Provider Unavailabl e Allergies No known active allergies Medications simvastatin (ZOCOR) 20 mg tablet TAKE 1 TABLET BY MOUTH EVERYDAY AT BEDTIME 1 10/19/2017 Active morphine (MSIR) tablet TAKE 1 TABLET BY MOUTH EVERY 4 HOURS NEEDED FOR PAIN FOR UP TO 7 DAYS 0 12/27/2017 Active lisinopril (PRINIVIL,ZESTR IL) 40 mg tablet Take 40 mg by mouth. 1 11/21/2017 Active hydroCHLOROthia zide (HYDRODIURIL) tablet Take 25 mg by mouth. 1 11/05/2017 Active gabapentin (NEURONTIN) 800 mg tablet TAKE 1 TAB BY MOUTH 3 TIMES DAILY FOR 180 DAYS. 5 12/23/2017 Active tadalafil (CIALIS) 5 mg tablet Take 5 mg by mouth. Active omeprazole (PriLOSEC) 40 mg capsule Take 40 mg by mouth. 08/23/2017 Active Active Problems No known active problems Social History Tobacco Use Types Packs/Day Years Used Date Smoking Tobacco: Former Smokeless Tobacco: Former Sex and Gender Information Value Date Recorded Sex Assigned at Not on file Legal Sex Male 10:01 AM EST Gender Identity Not on file Sexual Orientation Not on file Last Filed Vital Signs Vital Sign Reading Time Taken Comments Blood Pressure 104/67 01/14/2018 10:02 AM EST Pulse 80 01/14/2018 10:02 AM EST Temperature - - Respiratory Rate - - Oxygen Saturation - - Inhaled Oxygen Concentration - - Weight 96.2 kg (212 lb) 01/14/2018 10:02 AM EST Height 177.8 cm (5' 10 ) 01/14/2018 10:02 AM EST Body Mass Index 30.42 01/14/2018 10:02 AM EST Plan of Treatment Health Maintenance Due Date Last Done Comments CT Colonography 1952 Colonoscopy 1952 Colorectal Cancer Screening 1952 FIT-DNA (Cologuard) 1952 FIT 1952 FOBT 1952 Flex Sigmoidoscopy - 5y 1952 HIV Screening 1952 Zoster Vaccines (1 of 2) 01/19/2002 Pneumococcal Vaccine, 50+ Years (2 of 2 - PPSV23) 02/19/2018 02/19/2017 DTaP,Tdap,and Td Vaccines (2 - Td or Tdap) 05/13/2021 05/14/2011 COVID-19 Vaccine (1 - 2023-2 5 season) 2023 Influenza Vaccine (Season Ended) 2024 10/24/2017, 12/08/2014, 01/11/2009 HPV Vaccines Aged Out No longer eligi ble based on patient's age to complete this topic Hepatitis A Vaccines Aged Out No long er eligible based on patient's age to complete this topic Meningococcal Vaccine Aged Out No maryanne sanju eligible based on patient's age to complete this topic Insurance [employer] Care Teams Angle Shear Set Up Operator Relationship Specialty Start Date End Date Monika Sheridan MD [address] [place] [id number] PCP - General Internal Medicine 01/10/18
[2024-05-22 16:13] LABS: Testosterone, Total 383 ng/dL (250-1100)
== END 2024-05-15 12:52 | disposition home or self-care (01) ==
LOC: HO.LAB 12:51
PROVIDERS: PCP Internal Medicine; Visit Provider Urology
DX: C61 Malignant neoplasm of prostate (principal); Z12.5 Encounter for screening for malignant neoplasm of prostate
CPT/HCPCS: 36415; 84153; 84403

== ENCOUNTER 2024-05-29 11:02 | Outpatient (AMB) | payer MEDICARE, SELFPAY ==
--- NOTE | 2024-05-29 11:05 | MHC.OFFVIS ---
Intake Visit Reasons: Four month follow-up lab work of Intake Note: Pt presents to the office today for a 4 month follow up/labs PVR: 15ml Allergies No Known Allergies Allergy (Verified 05/29/24 11:05) HPI Comments Details: Mr Duran is a very pleasant male. He is a patient of Dr Hazel. He is seen for the following urologic conditions. - balanitis - lower urinary tract symptoms - uses daily Cialis for urge - erectile dysfunction - male pattern baldness Lab work - 10/04 2.2 T 415, 02/03 2.8 412, 06/05 2.2 Cut back finasteride to Saturday, Saturday, Saturday Active surveillance based on genetics Four month follow-up protocol PSA Re-biopsy at 18-24 months using MRI fusion targeting Had evaluation at the [facility] that had suggested RT versus RP but this decision making was performed without knowledge of genetic evaluation. Urinary Symptoms Review - Frequent urination managed with daily 5 mg tadalafil (Cialis) which reduces bathroom urgency. - Nocturnal or diurnal incontinence not specifically discussed. - PSA currently at 2.2, managed with finasteride, dosage reduced to alternate days (Saturday, Saturday, Saturday) Interested in trying rapid dissolving tablet sildenafil - prescription sent to [place] [facility] Prostate cancer - 01/03 - grade group 2, low volume Diagnosed by Dr. Ribeiro PSA at diagnosis 4.9 TRUS volume 55g Histologic type: Adenocarcinoma, acinar type [place] score: 7 (3+4) (right base lateral 30% and medial 40%), 6 (3+3) (right mid lateral 15%) % of pattern 4: 32% Grade group: 2 and 1 Tumor quantitation: Number cores positive: 4 Total number of cores: 12 - % of tissue involved: 13% Periprostatic fat inv.: Not identified Seminal vesicle inv.: Not identified Perineural inv.: Present Lymphovascular invasion: Not identified Vigoda - 01/03 Prolaris molecular score: 2.6. Test recommendation for possible treatment path: Based on the Prolaris molecular score and clinical variables, this patient may be a candidate for active surveillance. Personalized risk results: 10 year risk of disease specific mortality (DSM) with conservative management: 1.7%. 10 year risk of prostate cancer metastasis with single-modal treatment: 0.6% 10 year risk prostate cancer metastasis with RT plus ADT: 0.4 3/24 MRI [facility] Prostate size 50 g. 8 mm focal lesion right peripheral zone base PI-RADS 4, 7 mm right peripheral zone mid PI-RADS 4, 1.4 cm left peripheral zone base posterolateral PI-RADS 4. No lymphadenopathy. Seminal vesicles normal Male pattern baldness Trial minoxidil 5 mg Hypogonadism Low T initial - 07/02 T 280, FT 7, 10/02 T 320 Free 7, 07/03 T 490 E 25 PSA 8.6 Daily Clomiphene - 01/02 T 624 =, LH 22, FSH 13.9 Good response to Clomiphene Estradiol normal range, remain on Saturday and dosing Erectile dysfunction Has been using daily 5mg tadalafil with on demand 20mg Lower urinary tract symptoms They are here for further management for incomplete emptying neurogenic bladder, - seen in September 15. Given opioids with retention. Malik placed September 17 2015 Background of obstructive symptoms on cialis 5mg daily. Has been doing well on daily Cialis. Stopped Flomax. Has minimal issues with urination.. Urinary retention initially found after ER visit for spontaneous retention. Voiding trial outcome passed second voiding trial. Current management Therapeutic plan continue with medication. PSA 03/30 1.2, PSA 04/01 1.6. [facility] Medical History History of retained foreign body fully removed Glaucoma Iron (Fe) deficiency anemia GERD (gastroesophageal reflux disease) Hypercholesteremia HTN (hypertension) Hemorrhoids Incomplete emptying of bladder BPH (benign prostatic hyperplasia) Erectile dysfunction Surgical History History of colonoscopy Review of Systems Const Denies chills and Denies fever(s) Card Reports no additional complaints and Denies syncope Resp Denies cough GI Denies abdominal pain and Denies heartburn Reports as per HPI and Denies change in libido Neuro Denies syncope Psych Denies change in libido Endo Denies change in libido Physical Exam Const General: cooperative, healthy appearing, comfortable and no acute distress Orientation/consciousness: patient oriented x3 HEENT Face and sinus: Yes normal facial exam Mouth: moist mucous membranes Neck Neck: Yes normal visual inspection, Yes full ROM and Yes trachea midline Chest Chest palpation & inspection: normal inspection of the chest Resp Effort & Inspection: normal respiratory effort, able to speak in complete sentences and no respiratory distress GI Inspection: Yes normal to inspection Back/Spine/Pelvis Cervical Spine: normal cervical lordosis Thoracic/Lumbar Spine: thoracic and lumbar spine normal to inspection Skin General skin exam: no rashes or lesions noted Neuro General: patient oriented x3, gait normal, tone normal and moves all extremities Extrem General: Yes normal to inspection and Yes capillary refill normal Office Procedures Post Void Residual Post Residual Void Post Void Residual (PVR): 15 [id number] Void Residual by ultrasound Assessment & Plan Assessment & Plan (1) Bladder instability: Code(s): N32.89 - Other specified disorders of bladder Category: Medical Plan Plan 1. Erectile Dysfunction Plan: Continue 5 mg tadalafil daily. Sildenafil demand-based. Explore RDT with compounding pharmacy for faster onset. 2. 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 3. Prostate Cancer, Grade Group 2 Plan: Continue active surveillance. Monitor PSA every 6 months. Repeat MRI next appointment. Biopsy in 18-24 months with MRI fusion targeting. 4. Benign Prostatic Hyperplasia With Elevated Psa Plan: Reduce finasteride to alternate days. Monitor PSA every 6 months. Discussion Notes During this visit, I discussed several nation topics with the patient regarding ongoing management of his prostate cancer, erectile dysfunction, and urinary symptoms. For prostate cancer, despite the PSA of 2.2 and treatment with finasteride, I recommend continuing the active surveillance approach with six-monthly PSA tests and a follow-up MRI at the next visit. Biopsy to be considered within the next 18 to 24 months based on MRI findings. For erectile dysfunction, while continuing with tadalafil usage, we also discussed on-demand sildenafil and the new option of rapid dissolving tablets as an alternative for faster action, requiring prescription through a designated compounding pharmacy. No changes were recommended for androgenetic alopecia; current minoxidil treatment is ongoing. The adjustment in finasteride usage to alternate days was communicated to address benign prostatic hyperplasia while tracking PSA efficacy. All plans were agreed upon by the patient, with an understanding of the nature of his conditions, treatment protocols, and expectations for follow-up. Patient Instructions - Take finasteride only on Saturday, Saturday, and Saturday. - Continue taking 5 mg Cialis daily to manage urinary symptoms. - Use sildenafil on demand as needed for erectile dysfunction. - Expect a follow-up PSA test in 6 months. - Prepare for a prostate MRI at the next appointment. - Consider rapid dissolving sildenafil tablets if needed, prescription to be filled at the compounding pharmacy. - Continue using minoxidil as directed for hair loss. - Maintain current lifestyle changes, and monitor weight reduction progress. - Follow up as planned and report any new symptoms or changes in condition. Orders: Orders AMB Post Void Residual by ultrasound 05/29/24 N40.0 - Benign prostatic hyperplasia without lower urinary tract symptoms Prostate Specific Antigen 6 Months C61 - Malignant neoplasm of prostate Patient Instructions: This note is constructed using voice recognition software. While every effort has been made to ensure accuracy grocery manager errors may have been included. Imaging studies, laboratory and physical exam results were discussed and reviewed in detail. No major barriers to patient understanding were identified. An opportunity to ask questions regarding the treatment plan was provided. All questions were answered. The patient expressed understanding and agreement with the above treatment plan. The patient is aware they should contact our office by phone for worsening of their current condition or the appearance of new urologic symptoms. Compliance is encouraged with any medications and followup testing that is ordered. It is a privilege to participate in the urologic care of your patient. If you have any questions or concerns regarding treatment for the above conditions, or other urologic issues, please do not hesitate to contact me. The office telephone contact is [phone]. Sincerely, Dr Derek Ribeiro MD, [facility] - Urology Compassionate Specialist Care for the Genitourinary System Coding Level of Care Code Est Pt Level 4 (90068) Complex EM visit Add On G2211 Diagnoses Bladder instability N32.89 CPT Codes Post Residual Void - PVR CPT Code: 21991-Dssa Void Residual by ultrasound ([id number])
--- OUTSIDE RECORDS SUMMARY | 2024-05-29 12:06 | XMS_ITS | Referral Summary ---
Author Organization [facility] Address [address] [place] [address] Care Team Providers Care Superintendent Track Name Role Phone Ilir PEPPER MD, Veto Sierra Primary Care Provider [phone]- [phone] Allergies Active Allergy Reactions Criticality Noted Date [...] on file Insurance [employer] MCR Care Teams Superintendent Track Relationship Specialty Start Date End Date Veto Hazel III, MD PCP - General Internal Medicine 05/29/23
--- OUTSIDE RECORDS SUMMARY | 2024-05-29 12:06 | XMS_ITS ---
Author Organization [facility] [address] [place] [address] Address [address] [place] [address] Phone Care Team Providers Care Flame Hardener Name Role Phone Veto Hazel MD Primary Care Provider [phone] Active Problems Problem Noted Date Diagnosed Date Prostate CA ([facility] V24, [facility] V28) 3 Type 2 diabetes mellitus wit h peripheral vascular disease ([facility] V24, [facility] V28) 05/03/2021 Chronic obstructive pulmonar y disease ([facility] V24, [facility] V28) 12/25/2019 Allergic rhinitis due to pollen 12/19/2018 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 ([facility] V24, [facility] V28) 10/30/2018 Lumbar spinal stenosis 12/04/2017 Lipoma of [...] treatments are documented for this patient in [facility]. Treatments may have been administered in another system. Lifetime Dose Tracking * Chemical Lifetime Dose Automatic Entry Manual Entr y Radiation (DLP) 115.6 mGy-cm 115.6 mGy-cm 0 mGy-cm CTDIvol 3.22 mGy 3.22 mGy 0 mGy
--- OUTSIDE RECORDS SUMMARY | 2024-05-29 12:06 | XMS_ITS | Clinical Summary ---
Author Organization [facility] Address [address] [place] [id number] Care Team Providers Care Journalism Instructor Name Role Phone Pcp, Monika MD Primary [...] complete this topic Insurance [employer] Care Teams Journalism Instructor Relationship Specialty Start Date End Date Monika Sheridan MD [address] [place] [id number] PCP - General Internal Medicine 01/10/18
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
--- OUTSIDE RECORDS SUMMARY | 2024-05-29 12:06 | XMS_ITS | Clinical Summary ---
Author Organization [facility] Address [address] [place] [address] Care Team Providers Care [employer] T[employer] Name Role Phone Vane Sales MD Primary Care Provider [phone] Allergies Active Allergy Reactions Criticality Noted Date Comments Naproxen 12/25/2019 Gi bleed Medications Medication Sig Dispensed Refills Start Date End Date Status albuterol (PROVENTIL HFA;VENTOLIN HFA) 108 (90 Base) MCG/ACT inhaler Inhale 2 puffs into the lungs. 0 06/17/2018 Active gabapentin (NEURONTIN) 800 MG tablet TAKE 1 TAB BY MOUTH 3 TIMES DAILY FOR 180 DAYS. 0 12/23/2017 Active hydroCHLOROthiazide (HYDRODIURIL) tablet 25 mg Take 25 mg by mouth daily. 1 08/05/2018 Active morphine (MSIR) 15 MG tablet TAKE 1 TABLET BY MOUTH EVERY 4 HOURS NEEDED FOR PAIN FOR UP TO 7 DAYS 0 12/27/2017 Active clomiPHENE (CLOMID) tablet 50 mg TAKE 1 TABLET BY MOUTH ON MONDAYS, WEDNESDAYS AND FRIDAYS FOR 90 DAYS. 0 01/05/2022 Active ketorolac (ACULAR) 0.5 % ophthalmic solution INSTILL ONE DROP INTO LEFT EYE EVERY DAY FOR 3 DAYS 0 10/09/2021 Active tadalafil (CIALIS) 20 MG tablet TAKE 1 TABLET BY MOUTH 60 MINUTES BEFORE INTENDED ACTIVITY NEEDED 0 01/03/2022 Active Umeclidinium-Vilant stefanie 62.5-25 MCG/ACT AEPB Inhale into the lungs. 0 12/25/2019 Active simvastatin (ZOCOR) tablet 20 mg Take 1 tablet (20 mg total) by mouth every night at bedtime. 0 06/19/2021 Active omeprazole (PriLOSEC) 40 MG capsule Take 1 capsule (40 mg total) by mouth daily. 0 01/09/2022 Active lisinopril (PRINIVIL,ZESTRIL) tablet 40 mg Take 1 tablet (40 mg total) by mouth every night at bedtime. 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 Do not operate heavy machinery or drive when taking this medication. 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 350 g 3 12/26/2022 Active Active Problems Problem Noted Date Diagnosed Date Prediabetes 10/30/2018 Lumbar spinal stenosis 12/04/2017 Lipoma of neck 10/03/2017 Benign prostatic hyperplasia with weak urinary s tream 01/22/2017 Bilateral hand pain 10/24/2016 Lumbar pain with radiation down left leg 017 Pulmonary nodule 12/07/2015 Overview: Overview: CT of chest 12/06/15 shows a 0.8 cm right middle lobe nodule . Repeat 3-6 months suggested stability. Erectile dysfunction 06/18/2012 Glaucoma suspect 06/11/2011 Nuclear sclerosis 06/11/2011 External hemorrhoids 05/22/2010 Amblyopia 04/02/2008 Overview: Overview: refractive os BVA Hypercholesteremia 01/01/2007 Gastro-esophageal reflux disease with esophagiti s 12/10/2005 Overview: Overview: Erosive esophagitis on EGD 2005. Iron deficiency anemia due to chronic blood loss 12/10/2005 Overview: Overview: EGD, duodenal biopsies, colonoscopy, performed 12.10.05. Minimal reflux esophagitis. Small polyps in the lower rectum referred to surgery for removal. Duodenal biopsies revealed giardiasis and treatment was given. rectal polyp pathology: Fibroepithelial polyps consistent with internal hemorrhoids. No colon cancer screening necessary until 2016. Essential hypertension, benign 09/03/2005 Immunizations Name Administration Dates Next Due Covid-19 (Moderna 12+) 100mc g/0.5mL dosage 05/25/2021,12/08/2020,04/27/2020,03/29 Covid-19 (Moderna 12+) Bival ent 50mcg/0.5mL 11/28/2021 Covid-19 (Moderna Booster 18 +) 0.25mL dosage 03/30/2020 Influenza Quad (Flucelvax) 0 .5mL >6mon Vial (ccIIV4) 12/19/2016 Influenza Trivalent (Fluzone High Dose) 0.7 mL (65yrs &>) 10/28/2018,10/24/2017 Influenza Trivalent (Fluzone /Afluria) 5.0mL Multi-dose Vial 12/08/2014,01/11/2009 Pneumococcal Conjugate PCV13 02/19/2017 Pneumococcal Polysaccharide PPSV23 04/21/2018 Td (Adult) Decavac 08/03/2021 Tdap 05/14/2011 Zostavax (Zoster Live) 08/04/2012 Family History Medical History Relation Name Comments Cancer Father Clotting disorder Father Diabetes Father Heart disease Father Hyperlipidemia Father Hypertension Father Anesthesia problems Mother Arthritis Mother Relation Name Status Comments Father Mother Social History Tobacco Use Types Packs/Day Years Used Date Smoking Tobacco: Never Smokeless Tobacco: Never Alcohol Use Standard Drinks/Week Comments Yes 0 (1 standard drink = 0.6 oz pur e alcohol) Sex and Gender Information Value Date Recorded Sex Assigned at Not on file Gender Identity Not on file Sexual Orientation Not on file Job Start Date Occupation Industry Not on file Not on file Not on file Last Filed Vital Signs Vital Sign Reading Time Taken Comments Blood Pressure 128/83 01/11/2022 9:20 AM EST Pulse 70 01/11/2022 9:20 AM EST Temperature 35.4 ??C (95.7 ??F) 01/11/2022 9:20 AM ES T Respiratory Rate 16 01/11/2022 9:20 AM EST Oxygen Saturation 98% 01/11/2022 9:20 AM EST Inhaled Oxygen Concentration - - Weight 99.3 kg (219 lb) 01/11/2022 9:20 AM EST Height 177.8 cm (5' 10 ) 11/03/2018 1:22 PM EDT Body Mass Index 31.42 11/03/2018 1:22 PM EDT Plan of Treatment Health Maintenance Due Date Last Done Comments Depression Screening 1962 BMI Counseling 01/19/1970 Preventative Health Evaluation 01/19/1970 Colon Cancer Screening (Colonoscopy) 01/19/1997 Fall Risk Assessment 01/19/2017 COVID-19 Vaccine ( season) 2023 11/28/2021, 05/25/2021, 12/08/2020, Additional history exists Influenza Vaccine (#1) 2023 2, 10/28/2019, 10/28/2019, Additional history exists RSV Adult > 60+ Yrs or (1 - 1-dose 75+ series) 01/19/2027 DTap / Tdap / Td (3 - Td or Tdap) 08/04/2031 08/03/2021, 05/14/2011 Hepatitis C Screening Completed 07/28/2012 Pneumococcal Vaccine Completed 04/21/2018, 02/19/19 18 Shingrix-Zoster Vaccine Completed 01/05/20 20, 09/20/2019, 12/10/2018 Hepatitis B Vaccines Aged Out No long er eligible based on patient's age to complete this topic RSV Ped < 20 months Aged Out No longe r eligible based on patient's age to complete this topic Care Teams [employer] T[employer] Relationship Specialty Start Date End Date Vane Sales MD [address] [place] [address] [address] [place] [address] PCP - General Family Medicine 01/11/22
--- OUTSIDE RECORDS SUMMARY | 2024-05-29 12:06 | XMS_ITS | Clinical Summary ---
Author Organization [address] Address [address] [place] [phone] Phone Care Team Providers Care Derrick Hand Name Role Phone Veto Hazel MD Primary Care Provider [phone] Allergies Active Allergy Reactions Criticality Noted Date Comments Naproxen 12/25/2019 Gi bleed Medications finasteride (PROSCAR) 5 mg tablet Take 1 tablet (5 mg total) by mouth 1 (one) time each day. Active minoxidiL (LONITEN) 2.5 mg tablet Take 2 tablets (5 mg total) by mouth 1 (one) time each day. 10/19/19 23 Active omeprazole (PriLOSEC) [address] capsule Take 1 capsule (40 mg total) by mouth 1 (one) time each day. 08/08/19 24 Active tadalafiL (CIALIS) 5 mg tablet TAKE 1 TABLET BY MOUTH DAILY FOR SEXUAL ACTIVITY FOR 90 DAYS 04/25/19 24 Active semaglutide (OZEMPIC) 0.25 mg or 0.5 mg (2 mg/3 mL) injection penIndications :Diet-controll ed type 2 diabetes mellitus (CMS/HCC V24, CMS/HCC V28) Inject 0.25 mg under the skin every 7 (seven) days. 3 mL 1 03/19/19 25 Active lisinopriL (PRINIVIL,ZEST RIL) 10 mg tablet TAKE 1 TABLET BY MOUTH EVERY DAY 90 tablet 1 03/24/19 25 Active Anoro Ellipta 62.5-25 mcg/actuation inhaler TAKE 1 PUFF BY MOUTH EVERY DAY 180 each 1 03/25/19 25 Active simvastatin (ZOCOR) 20 mg tablet Take 1 tablet (20 mg total) by mouth at bedtime. 90 tablet 04/29/19 25 Active albuterol HFA (ProAir HFA) 90 mcg/actuation inhaler Inhale 2 puffs by mouth every 4 (four) hours if needed for wheezing or shortness of breath. 8.5 g 04/29/19 25 026 Active methocarbamoL (ROBAXIN) 500 mg tablet Take 1 tablet (500 mg total) by mouth 4 (four) times a day if needed for muscle spasms. 40 tablet 05/29/19 25 025 Active predniSONE (DELTASONE) 20 mg tabletIndicati ons:Neck pain Take 2 tablets (40 mg total) by mouth 1 (one) time each day for 5 days. 10 each 05/29/19 25 025 Active cyclobenzaprin e (FLEXERIL) 10 mg tablet Take 1 tablet (10 mg total) by mouth 3 (three) times a day if needed for muscle spasms. 08/05/19 24 025 Discontinued diclofenac (Voltaren Arthritis Pain) 1 % topical gel Apply 2 g topically 4 (four) times a day. 60 g 1 02/12/19 25 025 Discontinued docusate sodium (Colace) 100 mg capsule Take 1 capsule (100 mg total) by mouth 2 (two) times a day for 10 days. 60 capsule 5 04/29/19 25 025 diclofenac sodium 3 % gelIndications :Neck pain Apply topically 2 (two) times a day. 100 g 05/29/19 25 025 Discontinued Active Problems Problem Noted Date Diagnosed Date Prostate CA ([facility] V24, [facility] V28) 3 Type 2 diabetes mellitus wit h peripheral vascular disease ([facility] V24, [facility] V28) 05/03/2021 Chronic obstructive pulmonar y disease ([facility] V24, [facility] V28) 12/25/2019 Allergic rhinitis due to pollen 12/19/2018 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 No colon cancer screening necessary until 2015. Essential hypertension, benign 09/03/2005 Encounters Date Type Department Care Team Description 05/28/2024 2:30 PM EDT Office Visit Walk[facility]In Clinic [address] [address] Cynthia Carias NP Neck pain (Primary Dx) 04/28/2024 2:00 PM EDT Office Visit Adult Medicine [address] [phone] Veto Hazel MD Routine physical examination (Primary Dx); Essential hypertension, benign; Diet-controlled diabetes mellitus (CMS/HCC V24, CMS/HCC V28); Prostate CA (CMS/HCC V24, CMS/HCC V28); Hypercholesteremia; FHx: dementia; Balance problem; Gastroesophageal reflux disease without esophagitis; Chronic obstructive pulmonary disease, unspecified COPD type (CMS/HCC V24, CMS/[facility] V28); Benign localized prostatic hyperplasia with lower urinary tract symptoms (LUTS); Overweight (BMI 25.0-29.9) 04/07/2024 11:25 AM EST - 04/07/2024 11:59 PM EST Hospital Encounter [facility] CT Scan [address] [place] [address] Encounter for screening for malignant neoplasm of respiratory organs; Nicotine dependence, cigarettes, uncomplicated Discharge Disposition: Home or Self Care 03/20/2024 Telephone Lung Screening Program - [place] [address] [facility] [address] [place] [address] Mouna Woods [place] Appointment (1st [...] no polyps. UPPER GASTROINTESTINAL ENDOSCOPY 2005 PROCEDURE: [place] UPPER GI ENDOSCOPY PERFORMED; COMMENT: grade B reflux esophagitis. UPPER GASTROINTESTINAL ENDOSCOPY 06/04/2018 PROCEDURE: [place] UPPER GI ENDOSCOPY PERFORMED; COMMENT: normal on [...] Comments Heart attack Brother x 1 FATAL [place] Breast cancer Father unilateral; di abetes, HTN, [...] care for your loved ones. For example, childrens club attendant or elderly care for an older adult? [...] Pulse 93 05/28/2024 2:34 PM EDT Temperature 36.6 ??C (97.9 ??F) 04/28/2024 1:44 PM ED T Respiratory Rate 19 04/28/2024 1:44 PM EDT Oxygen Saturation 96% 05/28/2024 2:34 PM EDT Inhaled Oxygen Concentration - - Weight 92.5 kg (204 lb) 04/28/2024 1:44 PM EDT Height 177.8 cm (5' 10 ) 04/28/2024 1:44 PM EDT Body Mass Index 29.27 04/28/2024 1:44 PM EDT Plan of Treatment Upcoming Encounters Date Type Department Care Team (Late st Contact Info) Description 06/12/2024 10:00 AM EDT Evaluation Outpatient Rehabilitation [address] [phone] Tay Kitchen, PT [address] [place] [address] 08/13/2024 11:30 AM EDT Office Visit Adult Medicine [address] [phone] Veto Hazel MD [address] [place] [phone] Health Maintenance Due Date Last Done Comments RSV Immunization Adult Patients (1 - Risk 60-74 years 1-dose series) 2012 Medicare Annual Wellness Visit 2022 Diabetes: Annual Foot Exam 05/03/2022 05/03/2021 Diabetes: Blood Sugar Control Test (HGBA1C) 08/12/2024 02/13/2024, 08/05/2023 COVID-19 Vaccine (8 - Moderna risk season) 2024 02/23/2024, 11/28/2021, 05/25/2021, Additional history exists Diabetes: Annual Retina Eye Exam 09/24/2024 09/25/2023 [...] Completed 04/21/2018, 02/19/2017 Zoster Vaccines Completed 01/05/2020, 0810/2019, 12/10/2018, Additional history exists Influenza Vaccine Completed 04/01/2024, , 10/24/2022, Additional history exists HIB Vaccines Aged Out [...] age to complete this topic Meningococcal B Vaccine Aged Out No l onger eligible based on patient's age to complete [...] PM EST Diet-controlled type 2 diabetes mellitus (CMS/HCC V24, CMS/HCC V28) COMPREHENSIVE METABOLIC PANEL Routine 02/13/2024 4:16 PM EST Essential hypertension, benign Diet-controlled type 2 diabetes mellitus (CMS/HCC V24, CMS/HCC V28) Encounter for long-term (current) use of medications HEMOGLOBIN A1C Routine 02/13/2024 4:16 PM EST Diet-controlled type 2 diabetes mellitus (CMS/HCC V24, CMS/HCC V28) US ABDOMINAL AORTA REAL TIME SCREEN STUDY AAA Routine 03/05/2017 8:21 AM EST Encounter for screening for cardiovascular disorders from Last 3 Months or Most Recently Relevant to Health Maintenance Results * Lipid panel with reflex to direct LDL (04/28/2024 2:36 PM EDT) Cholesterol 139 0 - 200 mg/dL LAB CHEMISTRY METHOD 04/28/2024 5:17 PM EDT [facility] Triglycerides 113 0 - 150 mg/dL LAB CHEMISTRY METHOD 04/28/2024 5:17 PM EDT [facility] HDL 43 >=40 mg/dL LAB CHEMISTRY METHOD 04/28/2024 5:17 PM EDT [facility] LDL Calculated 73 0 - 100 mg/dL LAB CHEMISTRY METHOD 04/28/2024 5:17 PM EDT [facility] VLDL Cholesterol Rogelio 22.6 mg/dL LAB CHEMISTRY METHOD 04/28/2024 5:17 PM EDT [facility] Non HDL Chol. (LDL+VLDL) 96 <145 mg/dL LAB CHEMISTRY METHOD 04/28/2024 5:17 PM EDT [facility] Chol/HDL Ratio 3.2 0.0 - 4.4 LAB CHEMISTRY METHOD 04/28/2024 5:17 PM EDT [facility] Blood Venous blood specimen / Unknown Venipuncture / Unknown 04/28/2024 2:36 PM EDT 04/28/2024 2:36 PM EDT us Veto Hazel MD LAB BLOOD ORDERABLES Final Resu lt [facility] [address] [place] [address], * (ABNORMAL) CBC auto differential (04/28/2024 2:36 PM EDT) WBC 6.8 4.8 - 10.8 K/mcL LAB HEMETOLOGY METHOD 04/28/2024 5:01 PM EDT [facility] RBC 4.60 4.50 - 5.50 M/mcL LAB HEMETOLOGY METHOD 04/28/2024 5:01 PM EDT [facility] Hemoglobin 13.5 13.5 - 17.5 g/dL LAB HEMETOLOGY METHOD 04/28/2024 5:01 PM EDT [facility] Hematocrit 40.1(L) 42.0 - 54.0 % LAB HEMETOLOGY METHOD 04/28/2024 5:01 PM EDT [facility] MCV 87.2 79.0 - 98.0 FL LAB HEMETOLOGY METHOD 04/28/2024 5:01 PM EDT [facility] MCH 29.3 27.0 - 32.0 pcg LAB HEMETOLOGY METHOD 04/28[facility]24 [facility] MCHC 33.7 32.0 - 37.0 g/dL LAB HEMETOLOGY METHOD 04/28/2024 5:01 PM [facility] RDW 12.7 11.0 - 15.0 % LAB HEMETOLOGY METHOD 04/28/2024 5:01 [facility] Platelets 271 130 - 400 K/mcL LAB HEMETOLOGY METHOD 04/28/2024 5:01 PM [facility] MPV 10.2 7.0 - 11.0 FL LAB HEMETOLOGY METHOD 04/28/2024 5:01 PM [facility] NRBC 0.0 <1.0 % LAB HEMETOLOGY METHOD 04/28/2024 5:01 PM [facility] NRBC Absolute 0.00 <0.10 K/mcL LAB HEMETOLOGY METHOD 04/28/2024 5:01 PM [facility] Neutrophils Relative 66.0 % LAB HEMETOLOGY METHOD 04/28/2024 5:01 PM [facility] Lymphocytes Relative 21.4 % LAB HEMETOLOGY METHOD 04/28/2024 5:01 PM [facility] Monocytes Relative 9.5 % LAB HEMETOLOGY METHOD 04/28/2024 5:01 PM [facility] Eosinophils Relative 2.6 % LAB HEMETOLOGY METHOD 04/28/2024 5:01 PM [facility] Basophils Relative 0.4 % LAB HEMETOLOGY METHOD 04/28/2024 5:01 PM [facility] Immature Granulocytes Relative 0.1 % LAB HEMETOLOGY METHOD 04/28/2024 5:01 PM EDT [facility] Neutrophils Absolute 4.49 1.50 - 7.00 K/mcL LAB HEMETOLOGY METHOD 04/28/2024 5:01 PM EDT [facility] Lymphocytes Absolute 1.46 1.00 - 5.00 K/mcL LAB HEMETOLOGY METHOD 04/28/2024 5:01 PM EDT [facility] Monocytes Absolute 0.65 0.20 - 1.00 K/mcL LAB HEMETOLOGY METHOD 04/28/2024 5:01 PM EDT [facility] Eosinophils Absolute 0.18 0.00 - 0.50 K/mcL LAB HEMETOLOGY METHOD 04/28/2024 5:01 PM EDT [facility] Basophils Absolute 0.03 0.00 - 0.20 K/mcL LAB HEMETOLOGY METHOD 04/28/2024 5:01 PM EDT [facility] Immature Granulocytes Absolute 0.01 0.00 - 0.03 K/mcL LAB HEMETOLOGY METHOD 04/28/2024 5:01 PM EDT [facility] Blood Venous blood specimen / Unknown Venipuncture / Unknown 04/28/2024 2:36 PM EDT 04/28/2024 2:36 PM EDT us Veto Hazel MD LAB BLOOD ORDERABLES Final Resu lt [facility]) [facility] [address] [place] [address], * CT Lung Screening (04/07/2024 11:32 AM [...] Signed Date: 04/10/2024 13:02 ET Workstation ID: [id number] Transcribed By: Self Edit Transcribed Date: 04/10/2024 [...] Signed Date: 04/10/2024 13:02 ET Workstation ID: [id number] Transcribed By: Self Edit Transcribed Date: 04/10/2024 12:54 ET Dominick Daily MD [facility] [place] PROCEDURES Final Result * Microalbumin creatinine urine ratio (02/13/2024 4:16 PM EST) Creatinine, Urine 113.0 mg/dL LAB CHEMISTRY METHOD 02/13/2024 7:25 PM EST [facility] Microalb, Ur 16.5 0.0 - 29.0 mg/L LAB CHEMISTRY METHOD 02/13/2024 7:25 PM EST [facility] Microalb/Creat Ratio 15 <30 mg/g creat LAB CHEMISTRY METHOD 02/13/2024 7:25 PM EST [facility] Urine Urine specimen obtained by clean catch procedure / Unknown Non-blood Collection / Unknown 02/13/2024 4:16 PM EST 02/13/2024 4:16 PM EST us Veto Hazel MD LAB URINE ORDERABLES Final Resu lt Performing Organization Address City/[facility]/ZIP Co de Phone Number [facility] [address] [place] [address], [place] [phone] * Hemoglobin A1c (02/13/2024 4:16 PM EST) Pathologist [facility] Hemoglobin A1C 5.5 <6.5 % LAB CHEMISTRY METHOD 02/13/2024 9:21 PM EST [facility] Mean Bld Glu Estim. 111 mg/dL LAB CHEMISTRY METHOD 02/13/2024 9:21 PM [facility] Blood Venous blood specimen / Unknown Venipuncture / Unknown 02/13/2024 4:16 PM EST 02/13/2024 4:16 PM EST us Veto Hazel MD LAB BLOOD ORDERABLES Final Resu lt Performing Organization Address [facility]/ZIP Co de Phone Number [facility] [address] [place] [address], [place] [phone] * (ABNORMAL) Comprehensive metabolic panel (02/13/2024 4:16 PM EST) [facility] Sodium 138 133 - 145 mmol/L LAB CHEMISTRY METHOD 02/13/2024 7:05 PM [facility] Potassium 4.1 3.5 - 5.5 mmol/L LAB CHEMISTRY METHOD 02/13/2024 7:05 PM [facility] Chloride 110 96 - 110 mmol/L LAB CHEMISTRY METHOD 02/13/2024 7:05 PM [facility] CO2 26 21 - 32 mmol/L LAB CHEMISTRY METHOD 02/13/2024 7:05 PM [facility] Anion Gap 2(L) 3 - 11 LAB CHEMISTRY METHOD 02/13/2024 7:05 PM [facility] Glucose 97 70 - 100 mg/dL LAB CHEMISTRY METHOD 02/13/2024 7:05 PM [facility] BUN 19 5 - 25 mg/dL LAB CHEMISTRY METHOD 02/13/2024 7:05 PM [facility] Creatinine 1.11 0.70 - 1.30 mg/dL LAB CHEMISTRY METHOD 02/13/2024 7:05 PM [facility] eGFR 71 >=60 mL/min/1. 73m2 LAB CHEMISTRY METHOD 02/13/2024 7:05 PM [facility] Comment:Calculation based on the??Chronic Kidney Disease Epidemiology Collaboration (CKD-EPI) equation refit??without adjustment for race. BUN/Creatinine Ratio 17.1 LAB CHEMISTRY METHOD 02/13/2024 7:05 PM [facility] Calcium 9.2 8.5 - 10.5 mg/dL LAB CHEMISTRY METHOD 02/13/2024 7:05 PM [facility] AST (SGOT) 15 10 - 42 unit/L LAB CHEMISTRY METHOD 02/13/2024 7:05 PM [facility] ALT (SGPT) 24 10 - 60 unit/L LAB CHEMISTRY METHOD 02/13/2024 7:05 PM [facility] Alkaline Phosphatase 126(H) 42 - 121 unit/L LAB CHEMISTRY METHOD 02/13/2024 7:05 PM [facility] Total Protein 7.2 6.0 - 8.0 g/dL LAB CHEMISTRY METHOD 02/13/2024 7:05 PM [facility] Albumin 3.9 3.2 - 5.0 g/dL LAB CHEMISTRY METHOD 02/13/2024 7:05 PM [facility] Total Bilirubin 0.4 0.0 - 1.4 mg/dL LAB CHEMISTRY METHOD 02/13/2024 7:05 PM [facility] Blood Venous blood specimen / Unknown Venipuncture / Unknown 02/13/2024 4:16 PM EST 02/13/2024 4:16 PM EST Veto Hazel MD LAB BLOOD ORDERABLES Final Resu lt [facility] [address] [place] [address], [place] [phone] * [place] ABDOMINAL AORTA REAL TIME SCREEN [...] Maintenance Insurance [employer] MEDICARE ADVANTAGE Care Teams Derrick Hand Relationship Specialty Start Date End Date Veto Hazel MD [address] [place] [id number] PCP - General Internal Medicine 12/31/23
--- OUTSIDE RECORDS SUMMARY | 2024-05-29 12:06 | XMS_ITS | Data Portability ---
Author Organization [facility], [facility] Address [address] [place] [address] Care Team Providers Care Portable Irrigation Operator Name Role Phone FLAVIA PEARCE Primary Care [...] Address Organization Details Recorded Time No complaints [id number] Active Status : 'I'; Not Available [facility] 4 09:11:42 Arthritis of right knee [id number] 102 Active 2023 Brandy Walter CNP [address], [place], [address] , [facility] 21:53:48 Problem Notes None recorded. Procedures Surgical History Date Name Laterality Status Provider Name and Address Organization Details Recorded Time Euflexxa Knee Injection completed Brandy Walter CNP [address], [place], [address], [facility] 06/07/2023 09:55:41 4 Euflexxa Knee Injection completed Dashawn Duque PA-C [address], [place], [address], [facility] 05/28/2023 21:01:43 4 Euflexxa Knee Injection completed Guido Hurst PA-C [address], [place], [address], [facility] 05/22/2023 07:35:35 Imaging Results [...] Address Organization Details Last Updated DateTime 05/22/2023 48176.4 g 30.1 kg/m2 177.8 cm JAKEEDILMA SANJEEV [facility] 05/22/2023 09:11:55 Date Recorded Body height Body mass index (BMI) Body weight Provider Name and Address Organization Details Last Updated DateTime 05/29/2023 177.8 cm 30.1 kg/m2 26296.4 g Marvin Barreto [facility] 05/29/2023 08:50:54 Date Recorded Body height Body mass index (BMI) Body weight Provider Name and Address Organization Details Last Updated DateTime 06/07/2023 177.8 cm 30.1 kg/m2 56429.4 g TENZIN GARRETT [facility] 06/07/2023 09:10:28 Social History Question Answer Notes LastModified by Organizat ion Details LastModified Time Tobacco Smoking Status Never Smoker PEREZ kolb [facility] 05/22/2023 09:13:58 What Is Your Level Of [...] History Nothing Reported. Medical History Condition Response Allergies/Hayfever N Coronary Artery Disease N Anxiety/Depression N Emphysema N Thyroid Problems N COPD N Pacemaker N Anemia N Kidney/Bladder Problems N Vascular Disease N Heart Attack (NH) N Gastrointestinal Disease N Diabetes N Autoimmune disease N Bleeding Disorder N Orthotics N Arthritis Y Seizures/Epilepsy N Blood Clot N AIDS/HIV N Congestive Heart Failure (CHF) N Acid Reflux (GERD) Y Cancer Y Stroke N Asthma N Peripheral Vascular Disease N Sleep Apnea N Hepatitis N Heart Disease N Rheumatoid Arthritis N Arrhythmia N Pulmonary Embolism N Fibromyalgia N Hypertension Y Osteoporosis N Past Encounters Encounter ID Performer Location Encounter Start Date Encounter Closed Date Diagnosis/Indication Diagnosis SNOMED-CT Code Diagnosis ICD10 Code Diagnosis Note [id number] Guido Hurst PA-C [place] [address] [place] [address] 05/22/2023 08:58:50 06/12/2023 11:59:20 Osteoarthritis of right knee joint 4505420209 96205 M17.11 [id number] Dashawn Duque PA-C [place] [address] [place] [address] 05/29/2023 08:34:56 05/29/2023 09:44:28 Osteoarthritis of right knee joint 7781955507 25900 M17.11 [id number] Brandy Walter, GASK[employer] FORMER [facility] [address] [place] [address] 06/07/2023 08:57:59 06/21/2023 08:40:10 Arthritis of right knee 3830856162 221120 M13.861 Health Concerns Section Related Observation LastModified by Organization Detai ls LastModified Time None Recorded Concern Status LastModified by Organization Details LastModified Time None Recorded Advance Directives Directive None Recorded Payers Encounter Date Sequence Insurance Name Policy Number Policy Mcclure Covered Member ID Mcclure Member ID Guarantor Name 05/22/2023 1 [employer] (MEDICARE REPLACEMENT PPO) [id number] Iker Duran [id number] Iker Duran 05/29/2023 1 [employer] (MEDICARE REPLACEMENT PPO) [id number] Iker Duran [id number] Iker Duran 06/07/2023 1 [employer] (MEDICARE REPLACEMENT PPO) [id number] Iker Duran [id number] Iker Duran Notes Date Note Type Note Provider Name and Address Organization Details Recorded Time 05/22/2023 text/html I am seeing the patient today under the supervision of Dr. Mosqueda who was available but did not see the patient. Guido Hurst PA-C [address] [facility], [place], [address], [facility] 05/22/2023 09:37:43 06/07/2023 text/html Iker is here fo r his third euflexxa injection in the right knee. Brandy Walter, [employer] FORMER [address], [place], [address], [facility] 06/07/2023 09:55:54
--- OUTSIDE RECORDS SUMMARY | 2024-05-29 12:06 | XMS_ITS | Clinical Summary ---
Author Organization [facility] Address [address] [place] [address] Care Team Providers Care [employer] Name Role Phone Ilir PEPPER MD, Veto Sierra Primary Care Provider [phone] Allergies Active Allergy Reactions Criticality Noted Date [...] this topic Insurance A[employer] MCR Care Teams [employer] Relationship Specialty Start Date End Date Veto Hazel III, MD PCP - General Internal Medicine 05/29/23
== END 2024-05-29 11:35 | disposition home or self-care (01) ==
LOC: HO.HUSH 11:02
PROVIDERS: PCP Internal Medicine; Visit Provider Urology
DX: N32.89 Other specified disorders of bladder (principal)
CPT/HCPCS: 99214; G2211

== ENCOUNTER → 2024-05-29 11:02 | Outpatient (BNVA) | payer MEDICARE, SELFPAY | PROVIDERS: PCP Internal Medicine; Visit Provider Urology | DX: N52.9 Male erectile dysfunction, unspecified (principal); L64.9 Androgenic alopecia, unspecified; E29.1 Testicular hypofunction; N32.89 Other specified disorders of bladder; N40.0 Benign prostatic hyperplasia without lower urinary tract symptoms; C61 Malignant neoplasm of prostate | CPT/HCPCS: 51798; 99212 ==

== ENCOUNTER 2024-07-08 11:04 | Outpatient (REF) | payer MEDICARE, SELFPAY ==
--- OUTSIDE RECORDS SUMMARY | 2024-07-08 12:07 | XMS_ITS | Clinical Summary ---
Author Organization [address] Address [address] [place] [id number] Phone Care Team Providers Care Neurologist Name Role Phone Veto Hazel MD Primary Care Provider [phone] Allergies Active Allergy Reactions Criticality Noted Date [...] ACTIVITY FOR 90 DAYS 04/25/19 24 Active lisinopriL (PRINIVIL,ZEST RIL) 10 mg tablet [...] spasms. 40 tablet 05/29/19 25 025 Active Ozempic 0.25 mg or 0.5 mg (2 mg/3 mL) injection penIndications :Diet-controll ed type 2 diabetes mellitus ([facility] V24, [facility] V28) INJECT 0.25 MG SUBCUTANEOUSLY EVERY 7 DAYS 9 mL 1 06/09/19 25 Active semaglutide (OZEMPIC) 0.25 mg or 0.5 mg (2 mg/3 mL) injection penIndications :Diet-controll ed type 2 diabetes mellitus ([facility] V24, [facility] V28) Inject 0.25 mg under the skin every 7 (seven) days. 3 mL 1 03/19/19 25 025 Discontin ued(Reord er) Active Problems Problem Noted Date Diagnosed Date Prostate CA ([facility] V24, [facility] V28) 3 Type 2 diabetes mellitus wit h peripheral vascular disease ([facility] V24, [facility] V28) 05/03/2021 Chronic obstructive pulmonar y disease ([facility] V24, [facility] V28) 12/25/2019 Allergic rhinitis due to pollen 12/19/2018 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 ([facility] V24, [facility] V28) 10/30/2018 Lumbar spinal stenosis 12/04/2017 Lipoma [...] Encounters Date Type Department Care Team Description 06/26/2024 11:00 AM EDT Treatment Outpatient Rehabilitation - [address] [phone] Tay Kitchen, PT Balance problem (Primary Dx) 06/24/2024 11:00 AM EDT Treatment Outpatient Rehabilitation - [address] [phone] Mónica Quintana, MANJINDER 06/19/2024 1:30 PM EDT Treatment Outpatient [facility] - [address] [phone] Mónica Quintana, MANJINDER Balance problem (Primary Dx) 06/17/2024 3:00 PM EDT Treatment Outpatient [facility] - [address] [phone] Tala Barrett, TECHNICAL SERVICES REP Balance problem (Primary Dx) 06/12/2024 10:00 AM EDT Evaluation Outpatient Rehabilitation - [address] [phone] Tay Kitchen, PT Balance problem 05/28/2024 2:30 PM EDT Office Visit Walk-In Clinic - [address] [phone] Cynthia Carias, DARRYL Neck pain (Primary Dx) 04/28/2024 2:00 PM EDT Office Visit Adult Medicine [address] [phone] Veto Hazel MD Routine physical examination (Primary Dx); Essential hypertension, benign; Diet-controlled diabetes mellitus ([facility] V24, [facility] V28); Prostate CA ([facility] V24, [facility] V28); Hypercholesteremia; FHx: dementia; Balance problem; Gastroesophageal reflux disease without esophagitis; Chronic obstructive pulmonary disease, unspecified COPD type ([facility] V24, [facility] V28); Benign localized prostatic hyperplasia with lower urinary tract symptoms (LUTS); Overweight (BMI 25.0-29.9) from Last 3 Months Immunizations Name Administration [...] no polyps. UPPER GASTROINTESTINAL ENDOSCOPY 2005 PROCEDURE: [place] UPPER GI ENDOSCOPY PERFORMED; COMMENT: grade B reflux esophagitis. UPPER GASTROINTESTINAL ENDOSCOPY 06/04/2018 PROCEDURE: [place] UPPER GI ENDOSCOPY PERFORMED; COMMENT: normal on [...] care for your loved ones. For example, childcare administrator or elderly care for an older adult? [...] Care Team (Late st Contact Info) Description 07/10/2024 12:30 PM EDT Treatment Outpatient Rehabilitation [address] [phone] Tay Kitchen, PT [address] [place] [address] 08/13/2024 11:30 AM EDT Office Visit Adult Medicine [address] [phone] Veto Hazel MD [address] [place] [id number] Health Maintenance Due Date Last Done Comments RSV Immunization Adult Patients (1 - Risk 60-74 years 1-dose series) 2012 Medicare Annual Wellness Visit 2022 Diabetes: Annual Foot Exam 05/03/2022 05/03/2021 Diabetes: Blood Sugar Control Test (HGBA1C) 08/12/2024 02/13/2024, 08/05/2023 COVID-19 Vaccine (8 - Moderna risk 2023- season) 2024 02/23/2024, 11/28/2021, 05/25/2021, Additional history [...] 01/05/2020, 08/0 10/2019, 12/10/2018, Additional history exists Influenza Vaccine Completed [...] on patient's age to complete this topic Goals Goal Patient Goal Type Associated Problems Recent Progress Patient-Stated? Author PT STGT x [address] [facility] 06/12/24 General No Tay Kitchen, PT Note: [x] = completed goal [] = NOT completed goal [] Pt will experience no falls [] Pt will be able to ambulate 500 ft without LOB [] Pt will improve 30 sec chair rise test to 12 reps [facility] General No Tay Kitchen PT Note: [x] = completed goal [] = NOT completed goal [] Pt will experience no falls [] Pt will be able to ambulate >1500 ft without feeling LOB in order to be a community level ambulator [] Pt will improve 30 sec chair rise test to 15 [] Pt will improve TUG to 8 sec Improve balance General Yes Tay Kitchen, PT Procedures Procedure Name Priority Date/Time Associated Diagnosis Comments CBC WITH AUTO DIFFERENTIAL Routine 04/28/2024 2:36 PM EDT Routine physical examination CBC AND DIFFERENTIAL Routine 04/28/2024 2:36 PM EDT Routine physical examination LIPID PANEL WITH REFLEX TO DIRECT LDL Routine 04/28/2024 2:36 PM EDT Hypercholesteremia MICROALBUMIN CREATININE URINE RATIO Routine 02/13/2024 4:16 [...] lt [facility] [address] [place] [address], * (ABNORMAL) CBC auto differential (04/28/2024 2:36 PM EDT) WBC 6.8 4.8 - 10.8 K/mcL LAB HEMETOLOGY METHOD 04/28/2024 5:01 PM [facility] RBC 4.60 4.50 - 5.50 M/mcL LAB HEMETOLOGY METHOD 04/28/2024 5:01 PM [facility] Hemoglobin 13.5 13.5 - 17.5 g/dL LAB HEMETOLOGY METHOD 04/28/2024 5:01 PM [facility] Hematocrit 40.1(L) 42.0 - 54.0 % LAB HEMETOLOGY METHOD 04/28/2024 5:01 PM [facility] MCV 87.2 79.0 - 98.0 FL LAB HEMETOLOGY METHOD 04/28/2024 5:01 PM [facility] MCH 29.3 27.0 - 32.0 pcg LAB HEMETOLOGY METHOD 04/28/2024 5:01 PM [facility] MCHC 33.7 32.0 - 37.0 g/dL LAB HEMETOLOGY METHOD 04/28/2024 5:01 PM [facility] RDW 12.7 11.0 - 15.0 % LAB HEMETOLOGY METHOD 04/28/2024 5:01 PM [facility] Platelets 271 130 - 400 K/mcL LAB HEMETOLOGY METHOD 04/28/2024 5:01 PM [facility] MPV 10.2 7.0 - 11.0 FL LAB HEMETOLOGY METHOD 04/28/2024 5:01 PM [facility] NRBC 0.0 <1.0 % LAB HEMETOLOGY METHOD 04/28/2024 5:01 PM [facility] NRBC Absolute 0.00 <0.10 K/mcL LAB HEMETOLOGY METHOD 04/28/2024 5:01 PM [facility] Neutrophils Relative 66.0 % LAB HEMETOLOGY METHOD 04/28/2024 5:01 PM [facility] Lymphocytes Relative 21.4 % LAB HEMETOLOGY METHOD 04/28/2024 5:01 PM [facility] Monocytes Relative 9.5 % LAB HEMETOLOGY METHOD 04/28/2024 5:01 PM [facility] Eosinophils Relative 2.6 % LAB HEMETOLOGY METHOD 04/28/2024 5:01 PM [facility] Basophils Relative 0.4 % LAB HEMETOLOGY METHOD 04/28/2024 5:01 PM [facility] Immature Granulocytes Relative 0.1 % LAB HEMETOLOGY METHOD 04/28/2024 5:01 PM [facility] Neutrophils Absolute 4.49 1.50 - 7.00 K/mcL LAB HEMETOLOGY METHOD 04/28/2024 5:01 PM [facility] Lymphocytes Absolute 1.46 1.00 - 5.00 K/mcL LAB HEMETOLOGY METHOD 04/28/2024 5:01 PM [facility] Monocytes Absolute 0.65 0.20 - 1.00 K/mcL LAB HEMETOLOGY METHOD 04/28/2024 5:01 PM [facility] Eosinophils Absolute 0.18 0.00 - 0.50 K/mcL LAB HEMETOLOGY METHOD 04/28/2024 5:01 PM [facility] Basophils Absolute 0.03 0.00 - 0.20 K/mcL LAB HEMETOLOGY METHOD 04/28/2024 5:01 PM [facility] Immature Granulocytes Absolute 0.01 0.00 - 0.03 K/mcL LAB HEMETOLOGY METHOD 04/28/2024 5:01 PM [facility] Blood Venous blood specimen / Unknown Venipuncture / Unknown 04/28/2024 2:36 PM EDT 04/28/2024 2:36 PM EDT us Veto Hazel MD LAB BLOOD ORDERABLES Final Resu lt [facility] [address] [place] [address], [place] [phone] * Microalbumin creatinine urine ratio (02/13/2024 4:16 PM EST) Creatinine, Urine 113.0 mg/dL LAB CHEMISTRY METHOD 02/13/2024 7:25 PM EST [facility] Microalb, Ur 16.5 0.0 - 29.0 mg/L LAB CHEMISTRY METHOD 02/13/2024 7:25 PM EST [facility] Microalb/Creat Ratio 15 <30 mg/g creat LAB CHEMISTRY METHOD 02/13/2024 7:25 PM EST [facility] Urine Urine specimen obtained by clean catch procedure / Unknown Non-blood Collection / Unknown 02/13/2024 4:16 PM EST 02/13/2024 4:16 PM EST us Veto Hazel MD LAB URINE ORDERABLES Final Resu lt Performing Organization Address City/[facility]/ZIP Co de Phone Number [facility] [address] [place] [address], [place] [phone] * Hemoglobin A1c (02/13/2024 4:16 PM EST) Hemoglobin A1C 5.5 <6.5 % LAB CHEMISTRY METHOD 02/13/2024 9:21 PM EST [facility] Mean Bld Glu Estim. 111 mg/dL LAB CHEMISTRY METHOD 02/13/2024 9:21 PM EST [facility] Blood Venous blood specimen / Unknown Venipuncture / Unknown 02/13/2024 4:16 PM EST 02/13/2024 4:16 PM EST us Veto Hazel MD LAB BLOOD ORDERABLES Final Resu lt [facility] [address] [place] [address], * (ABNORMAL) Comprehensive metabolic panel (02/13/2024 4:16 PM EST) Sodium 138 133 - 145 mmol/L LAB CHEMISTRY METHOD 02/13/2024 7:05 PM [facility] Potassium 4.1 3.5 - 5.5 mmol/L LAB CHEMISTRY METHOD 02/13/2024 7:05 PM [facility] Chloride 110 96 - 110 mmol/L LAB CHEMISTRY METHOD 02/13/2024 7:05 PM [facility] CO2 26 21 - 32 mmol/L LAB CHEMISTRY METHOD 02/13/2024 7:05 PM [facility] Anion Gap 2(L) 3 - 11 LAB CHEMISTRY METHOD 02/13/2024 7:05 PM [facility] Glucose 97 70 - 100 mg/dL LAB CHEMISTRY METHOD 02/13/2024 7:05 PM [facility] BUN 19 5 - 25 mg/dL LAB CHEMISTRY METHOD 02/13/2024 7:05 PM [facility] Creatinine 1.11 0.70 - 1.30 mg/dL LAB CHEMISTRY METHOD 02/13/2024 7:05 PM [facility] eGFR 71 >=60 mL/min/1. 73m2 LAB CHEMISTRY METHOD 02/13/2024 7:05 PM [facility] Comment:Calculation based on the??Chronic Kidney Disease Epidemiology Collaboration (CKD-EPI) equation refit??without adjustment for race. BUN/Creatinine Ratio 17.1 LAB CHEMISTRY METHOD 02/13/2024 7:05 PM [facility] Calcium 9.2 8.5 - 10.5 mg/dL LAB CHEMISTRY METHOD 02/13/2024 7:05 PM [facility] AST (SGOT) 15 10 - 42 unit/L LAB CHEMISTRY METHOD 02/13/2024 7:05 PM [facility] ALT (SGPT) 24 10 - 60 unit/L LAB CHEMISTRY METHOD 02/13/2024 7:05 PM [facility] Alkaline Phosphatase 126(H) 42 - 121 unit/L LAB CHEMISTRY METHOD 02/13/2024 7:05 PM [facility] Total Protein 7.2 6.0 - 8.0 g/dL LAB CHEMISTRY METHOD 02/13/2024 7:05 PM [facility] Albumin 3.9 3.2 - 5.0 g/dL LAB CHEMISTRY METHOD 02/13/2024 7:05 PM [facility] Total Bilirubin 0.4 0.0 - 1.4 mg/dL LAB CHEMISTRY METHOD 02/13/2024 7:05 PM [facility] Blood Venous blood specimen / Unknown Venipuncture / Unknown 02/13/2024 4:16 PM EST 02/13/2024 4:16 PM EST us Veto Hazel MD LAB BLOOD ORDERABLES Final Resu lt [facility] [address] [place] [address], * US ABDOMINAL AORTA REAL TIME SCREEN [...] IMPRESSION: IMPRESSION: No visualized abdominal aortic aneurysm. us Brigido BUCKLEY IMG US PROCEDURES Final Result from Last 3 Months or Most Recently Relevant to Health Maintenance Insurance [employer] MED[employer]ARE [employer]VANTAGE Care Teams Neurologist Relationship Specialty Start Date End Date Veto Hazel MD [address] [place] [id number] PCP - General Internal Medicine 12/31/23
[2024-07-08 13:05] LABS: Prostate Specific Antigen 4.94 ng/mL (<0.05-4.0)
[2024-07-08 13:06] LABS: Anion Gap 8 (12-20); Blood Urea Nitrogen 18 mg/dL (9-16); Calcium 8.9 mg/dL (8.4-10.2); Carbon Dioxide 25 mmol/L (22-29); Chloride 111 mmol/L (96-108); Estimated Glomerular Filt Rate > 60; Glucose Random 88 mg/dL (60-115); Potassium 3.9 mmol/L (3.3-5.1); Sodium 140 mmol/L (135-145)
[2024-07-08 13:26] LABS: Folate 5.1 ng/mL (> or = 4.0); Vitamin B12 360 pg/mL (200-900)
[2024-07-08 13:30] LABS: TSH reflex Free T4 0.88 uIU/mL (0.32-4.0)
== END 2024-07-08 11:05 | disposition home or self-care (01) ==
LOC: HO.LAB 11:04
PROVIDERS: Urology; PCP Internal Medicine; Visit Provider Psychiatry & Neurology Neurology
DX: G31.84 Mild cognitive impairment of uncertain or unknown etiology (principal); C61 Malignant neoplasm of prostate; Z12.5 Encounter for screening for malignant neoplasm of prostate
CPT/HCPCS: 36415; 80048; 82607; 82746; 84153; 84443

== ENCOUNTER 2024-08-19 11:21 | Outpatient (AMB) | payer MEDICARE, SELFPAY ==
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
--- OUTSIDE RECORDS SUMMARY | 2024-08-19 12:33 | XMS_ITS | Data Portability ---
Author Organization [facility], [facility] Address [address] [place] [address] Care Team Providers Care Nursing Informatics Clinical Analyst Name Role Phone FLAVIA PEARCE Primary Care [...] Organization Detail LastModifiedTime 10/11/19 24 06/12/2021 imagi ng/nikko randallos tic resul t No observ ation record ed. [email or web address] Not Available 09/13 06:16:32 Result Notes None recorded. Problems Name Problem SNOMED Code Status Onset Date Resolution Date Notes Provider Name and Address Organization Details Recorded Time No complaints [id number] Active Status : 'I'; Not Available [employer] 4 09:11:42 Arthritis of right knee [id number] 102 Active 2023 Brandy Walter CNP [address], [place], [address] , [facility] 4 21:53:48 Problem Notes None recorded. Procedures Surgical History Date Name Laterality Status Provider Name and Address Organization Details Recorded Time Euflexxa Knee Injection completed Brandy Walter CNP [address], [place], [address], [facility] 06/07/2023 09:55:41 4 Euflexxa Knee Injection completed Dashawn Duque PA-C [address], [place], [address], [facility] 05/28/2023 21:01:43 4 Euflexxa Knee Injection completed Guido Hurst PA-C [address], [place], [address], [facility] 05/22/2023 07:35:35 Imaging Results None recorded. Procedure Notes None recorded. Medical Equipment None [...] Address Organization Details Last Updated DateTime 05/22/2023 10031.4 g 30.1 kg/m2 177.8 cm PEREZ PACE MD - [place] [facility] 05/22/2023 09:11:55 Date Recorded Body height Body mass index (BMI) Body weight Provider Name and Address Organization Details Last Updated DateTime 05/29/2023 177.8 cm 30.1 kg/m2 58457.4 g Marvin Barreto [facility] 05/29/2023 08:50:54 Date Recorded Body height Body mass index (BMI) Body weight Provider Name and Address Organization Details Last Updated DateTime 06/07/2023 177.8 cm 30.1 kg/m2 22097.4 g TENZIN GARRETT MD Juan Manuel Wilburn [facility] 06/07/2023 09:10:28 Social History Question Answer Notes LastModified by F?rsat Bu F?rsat Details LastModified Time Tobacco Smoking Status Never Smoker PEREZ kolb [place] [facility] 05/22/2023 09:13:58 Have You Ever Been Counseled For Unhealthy Alcohol Use? No Information not available 05/22/2023 What Is Your Relationship Status? Single Information not available 05/22/2023 Sex: Unknown Functional Status Question Answer Note LastModified by F?rsat Bu F?rsat Details LastModified Time How many times per week do you consume alcohol? Less than 1 time per week Information not available 05/22/2023 Do you use any illicit or recreational drugs? No Information not available 05/22/2023 Do you or have you ever used any other forms of tobacco or nicotine? No Information not available 05/22/2023 What is your level of alcohol consumption? Occasional Information not available 05/22/2023 Mental Status None recorded. Family History Nothing Reported. Medical History Condition Response Allergies/Hayfever N Coronary Artery Disease N Anxiety/Depression N Emphysema N Thyroid Problems N COPD N Pacemaker N Kidney/Bladder Problems N Anemia N Vascular Disease N Heart Attack ([place]) N Gastrointestinal Disease N Diabetes N Autoimmune disease N Bleeding Disorder N Orthotics N Seizures/Epilepsy N Arthritis Y Blood Clot N AIDS/HIV N Congestive Heart Failure (CHF) N Acid Reflux (GERD) Y Cancer Y Stroke N Asthma N Peripheral Vascular Disease N Sleep Apnea N Hepatitis N Heart Disease N Rheumatoid Arthritis N Pulmonary Embolism N Arrhythmia N Fibromyalgia N Hypertension Y Osteoporosis N Past Encounters Encounter ID Performer Location Encounter Start Date Encounter Closed Date Diagnosis/Indication Diagnosis SNOMED-CT Code Diagnosis ICD10 Code Diagnosis Note [id number] Guido Hurst PA-C [place] [address] [place] [address] 05/22/2023 08:58:50 06/12/2023 11:59:20 Osteoarthritis of right knee joint 0030769431 98832 M17.11 [id number] Dashawn Duque PA-C [place] [address] [place] [address] 05/29/2023 08:34:56 05/29/2023 09:44:28 Osteoarthritis of right knee joint 8184030449 70871 M17.11 [id number] Brandy Walter CNP [place] [address] [place] [address] 06/07/2023 08:57:59 06/21/2023 08:40:10 Arthritis of right knee 0260604096 580099 M13.861 Health Concerns Section Related Observation LastModified by Organization Detai ls LastModified Time None Recorded Concern Status LastModified by Organization Details LastModified Time None Recorded Advance Directives Directive None Recorded Payers Insurance Date Sequence Insurance Name Policy Number Policy Mcclure Covered Member ID Mcclure Member ID Guarantor Name 01/07/2024 1 [employer] (MEDICARE REPLACEMENT/ ADVANTAGE - PPO) [id number] Iker Duran [id number] Iker Duran Notes Date Note Type Note Provider Name and Address Organization Details Recorded Time 05/22/2023 text/html I am seeing the patient today under the supervision of Dr. Mosqueda who was available but did not see the patient. Guido Hurst PA-C [address], [place], [address], [facility] 05/22/2023 09:37:43 06/07/2023 text/html Iker is here fo r his third euflexxa injection in the right knee. Brandy Walter CNP [address], [place], [address], [facility] 06/07/2023 09:55:54
--- OUTSIDE RECORDS SUMMARY | 2024-08-19 12:34 | XMS_ITS | Clinical Summary ---
Author Organization [facility] Address [address] [place] [address] Care Team Providers Care Baker Doughnut Name Role Phone Ilir PEPPER MD, Veto Sierra Primary Care Provider [phone] Allergies Active Allergy Reactions Criticality Noted Date [...] - Risk 60-74 years 1-dose series) 2012 COVID-19 Vaccine ( season) 2023 11/28/2021, 05/25/2021, 12/08/2020, Additional history exists Alcohol/Substance Use Screening 02/12/2024 Depression Screening and Follow-Up 02/12/2024 Health Care Proxy Review 02/12/2024 Social Drivers of Health Annual Screening 02/12/2024 Influenza Vaccine (#1) 2024 , 11/10/2021, 12/08/2020, Additional history exists DTaP,Tdap,and Td Vaccines (3 - Td or Tdap) 08/04/2031 08/03/2021, 05/14/2011 Pneumococcal Vaccine: 50+ Years Completed 04/21/2018, 02/19/2017 Zoster Vaccines Completed 01/05/2020, 10/2019, 12/10/2018, Additional history exists Hepatitis B Vaccines Aged Out No long er eligible based on patient's age to complete this topic Insurance [employer] MCR Care Teams Baker Doughnut Relationship Specialty Start Date End Date Veto Hazel III, MD PCP - General Internal Medicine 05/29/23
--- OUTSIDE RECORDS SUMMARY | 2024-08-19 12:34 | XMS_ITS ---
Author Name [facility] Organization Unknown Results Test Name/Text Value Interpretation Date Range Source INR 1.1 Normal 04/16/2023 0.9 - 1.1 [facility] PARTIAL THROMBOPLASTIN TIME 35.0 seconds Normal 04/16/2023 25 - 36.5 [facility] PROTHROMBIN TIME (PATIENT) 13.1 seconds Normal 04/16/2023 10 - 13.2 [facility] BILIRUBIN,TOTAL 0.5 mg/dL Normal 04/16/2023 0.2 - 1.2 [facility] LANDIS BUN/CREATININE RATIO 14.2 Normal 04/16/2023 10 - 20 [facility] ALBUMIN/GLOBULIN RATIO 1.6 Normal 04/16/2023 1 - 2. 2 [facility] AST/SGOT 15.0 U/L Normal 04/16/2023 0 - 34 [facility] ANION GAP 11.0 Normal 04/16/2023 3 - 11 [facility] ALBUMIN 4.3 g/dL Normal 04/16/2023 3.5 - 5 [facility] TOTAL PROTEIN 7.0 g/dL Normal 04/16/2023 6.2 - 8.1 [facility] M ALT/SGPT 15.0 U/L Normal 04/16/2023 15 - 67 [facility] CHLORIDE 107.0 mmol/L Normal 04/16/2023 99 - 109 [facility] GLUCOSE 99.0 mg/dL Normal 04/16/2023 65 - 100 [facility] CARBON DIOXIDE (CO2) 22.0 mmol/L Normal 04/16/2023 20 - 3 1 [facility] CREATININE 1.2 mg/dL Normal 04/16/2023 0.5 - 1.3 [facility] POTASSIUM, SERUM 3.8 mmol/L Normal 04/16/2023 3.5 - 5.2 [facility] BLOOD UREA NITROGEN 17.0 mg/dL Normal 04/16/2023 9 - 23 [facility] SODIUM 140.0 mmol/L Normal 04/16/2023 132 - 146 [facility] ALKALINE PHOSPHATASE 95.0 U/L Normal 04/16/2023 45 - 129 [facility] EST GLOMERULAR FILTRATION RATE 60.0 ml/min Normal 04/16/2023 [facility] CALCIUM 9.5 mg/dL Normal 04/16/2023 8.4 - 10.5 [facility] MSSA NASAL PCR NEGATIVE Normal 04/16/2023 - [facility] AM MRSA NASAL PCR NEGATIVE Normal 04/16/2023 - [facility] MRSA SOURCE NASAL Normal 04/16/2023 [facility] MONO # 0.4 K/mm3 Normal 04/16/2023 0.1 - 1.1 [facility] NEUTROPHILS % 70.4 % Normal 04/16/2023 46 - 75 [facility] LYMPH # 1.1 K/mm3 Normal 04/16/2023 0.6 - 4.2 [facility] MEAN PLATELET VOLUME 10.0 fL Normal 04/16/2023 9 - 12.8 [facility] NEUTROPHILS # 4.0 K/mm3 Normal 04/16/2023 1.84 - 7.5 [facility] IMMATURE GRANULOCYTE 0.03 K/mm3 Normal 04/16/2023 0 - 0.0 5 [facility] PLATELET COUNT 276.0 K/mm3 Normal 04/16/2023 130 - 385 [facility] LYMPH % 19.8 % Normal 04/16/2023 15 - 42 [facility] BASO % 0.5 % Normal 04/16/2023 0 - 2 [facility] EOS % 1.9 % Normal 04/16/2023 0 - 5 [facility] MONO % 6.9 % Normal 04/16/2023 4 - 11 [facility] MEAN CORPUSCULAR HEMOGLOBIN 29.7 pg Normal 04/16/2023 26.2 - 32.6 [facility] EOS # 0.1 K/mm3 Normal 04/16/2023 0 - 0.5 [facility] MEAN CORPUSCULAR VOLUME 85.5 fL Normal 04/16/2023 80 - 98 [facility] RED CELL DISTRIBUTION WIDTH 12.6 % Normal 04/16/2023 11.5 - 15.6 [facility] RED BLOOD COUNT 4.01 M/mm3 Normal 04/16/2023 4 - 5.9 [facility] NUCLEATED RED BLOOD CELL 0.0 K/mm3 Normal 04/16/2023 0 - 0.012 [facility] WHITE BLOOD COUNT 5.7 k/mm3 Normal 04/16/2023 4 - 10 [facility] HEMOGLOBIN 11.9 g/dL Below low normal 04/16/2023 13.2 - 17.2 [facility] HEMATOCRIT 34.3 % Below low normal 04/16/2023 38.6 - 50 [facility] NUCLEATED RED BLOOD CELL 0.0 % Normal 04/16/2023 0 - 0.2 [facility] MEAN CORPUSCULAR HGB CONC 34.7 g/dL Above high normal 04/16/2023 32.1 - 34.5 [facility] IMMATURE GRANULOCYTE 0.5 % Normal 04/16/2023 0 - 0.5 [facility] BASO # 0.0 K/mm3 Normal 04/16/2023 0 - 0.2 [facility] History of Medication Use Medication Directions Dispensed Refills Start Date End Date Stat amoxicillin 500 mg tablet TAKE FOUR TABLETS (2,000 MG TOTAL) BY MOUTH ONCE FOR 1 DOSE. 1 HOUR BEFORE DENTAL PROCEDURE 5 active docusate sodium 100 mg capsule TAKE ONE CAPSULE BY MOUTH EVERY TWELVE HOURS FOR CONSTIPATION 5 active meloxicam 7.5 mg tablet TAKE ONE TABLET BY MOUTH DAILY. 5 completed ondansetron 4 mg disintegrating tablet DISSOLVE ONE TABLET ON THE TONGUE EVERY 8 HOURS NEEDED FOR NAUSEA AND VOMITING 5 completed oxycodone 5 mg tablet TAKE 1 OR 2 TABLETS BY MOUTH EVERY 4 HOURS NEEDED PAIN 5 completed tranexamic acid 650 mg tablet 5 completed Cialis 5 mg tablet TAKE 1 TABLET DAILY active Ozempic 0.25 mg or 0.5 mg (2 mg/3 mL) subcutaneous pen injector INJECT 0.25 MG SUBCUTANEOUSLY EVERY 7 DAYS active sildenafil 100 mg tablet PLEASE SEE ATTACHED FOR DETAILED DIRECTIONS active Problems Problem Status Onset Date Problem Type Date of Resoluti on Source Osteoarthritis of right knee joint active 2024-02-17 ProblemAct [facility] Pain of knee region active 2024-02-17 ProblemAct [facility] Osteoarthritis of knee active 2024-03-06 ProblemAct [facility] Encounters Encounter Type Encounter Reason Primary Diagnosis Location Date Ambulatory [facility] 03/06/2024 Ambulatory [facility] 02/26/2024 Ambulatory [facility] 02/26/2024 Ambulatory [facility] 02/24/2024 Ambulatory [facility] 02/21/2024 Ambulatory [facility] 02/21/2024 Ambulatory [facility] 02/20/2024 Ambulatory [facility] 02/20/2024 Ambulatory [facility] 02/20/2024 Ambulatory [facility] 02/17/2024 Ambulatory [facility] 02/17/2024 Ambulatory [facility] 02/17/2024 Ambulatory [facility] 02/10/2024 Ambulatory [facility] 02/10/2024 Ambulatory LEFT KNEE UNI REPLACEMENT W/ KEVIN MYRANDA MEDIAL UNILATERAL PRIMARY OSTEOARTHRITIS, LEFT KNEE [facility]) 04/25/2023 Ambulatory M17.12 UNILATERAL PRIMA RY OSTEOARTHRITIS, LEFT KNEE [facility]) 04/16/2023 Ambulatory LEFT KNEE UNI REPLACEMENT W/ KEVIN MYRANDA ENCOUNTER FOR OTHER PREPROCEDURAL EXAMINATION [facility]) 04/16/2023 Ambulatory PREOP EVAL - L PARTIAL KNEE REPLACEMENT ENCOUNTER FOR OTHER PREPROCEDURAL EXAMINATION [facility]) 04/16/2023 Care Team Organization Name Specialty Phone Email Start Date End Da te [facility]) NO PHYSICIAN Primary Care 04/16/2023 [facility]) MELIDA CULP Primary Care 04/12/2023 [facility]) DOCTOR AREA Primary Care 03/18/2023 03/18/2023 [facility]) AREA,DOCTOR Primary Care 03/03/2023 10/06/2023
--- OUTSIDE RECORDS SUMMARY | 2024-08-19 12:34 | XMS_ITS | Clinical Summary ---
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
--- OUTSIDE RECORDS SUMMARY | 2024-08-19 12:34 | XMS_ITS | Clinical Summary ---
Author Organization [facility] Address [address] [place] [id number] Care Team Providers Care Stacker Name Role Phone Pcp, Monika MD Primary [...] - 2023-2 5 season) 2023 Influenza Vaccine (#1) 2024 8, 12/08/2014, 01/11/2009 HPV Vaccines Aged Out No longer eligi ble based on patient's age to complete this topic Hepatitis A Vaccines Aged Out No long er eligible based on patient's age to complete this topic Meningococcal Vaccine Aged Out No maryanne sanju eligible based on patient's age to complete this topic Insurance [employer] Care Teams Stacker Relationship Specialty Start Date End Date Monika Sheridan MD [address] [place] [id number] PCP - General Internal Medicine 01/10/18
== END 2024-08-19 11:58 | disposition home or self-care (01) ==
LOC: HO.HSM 11:22
PROVIDERS: PCP Internal Medicine; Referring Provider Internal Medicine; Visit Provider Psychiatry & Neurology Neurology
DX: G31.84 Mild cognitive impairment of uncertain or unknown etiology (principal)
CPT/HCPCS: 99214

== ENCOUNTER → 2024-08-19 11:21 | Outpatient (BNVA) | payer MEDICARE, SELFPAY | PROVIDERS: PCP Internal Medicine; Referring Provider Internal Medicine; Visit Provider Psychiatry & Neurology Neurology | DX: G30.0 Alzheimer's disease with early onset (principal); G31.84 Mild cognitive impairment of uncertain or unknown etiology | CPT/HCPCS: 99212 ==

== ENCOUNTER 2024-11-04 11:44 | Outpatient (AMB) | payer MEDICARE, SELFPAY ==
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
--- OUTSIDE RECORDS SUMMARY | 2024-11-04 14:45 | XMS_ITS | Clinical Summary ---
Author Organization [facility] Address [address] [address] Phone Care Team Providers Care Electrical Cad Designer Name Role Phone Veto Hazel MD Primary Care Provider + Jayden Horta MD, MPH Unavailable [phone] Derek Torres MD Unavailable [phone] Bossman Leon MD Unavailable [phone] Allergies Active Allergy Reactions Criticality Noted Date Comments Naproxen 12/25/2019 Gi bleed Medications clomiPHENE citrate (CLOMID) 50 mg tablet TAKE 1 TABLET BY MOUTH TWICE A WEEK ON SATURDAY AND SATURDAY NOT COVERED Active finasteride (PROSCAR) 5 mg tablet Active hydroCHLOROthia zide (HYDRODIURIL) 25 MG tablet Take 25 mg by mouth daily. Active lisinopril (PRINIVIL,ZESTR IL) 40 MG tablet Take 40 mg by mouth. 01/09/2022 Active minoxidiL (LONITEN) 2.5 MG tablet TAKE 2 TABLET BY MOUTH DAILY FOR 90 DAYS Active omeprazole (PRILOSEC) 40 MG capsule Take by mouth daily. Active simvastatin (ZOCOR) 20 MG tablet TAKE 1 TABLET BY MOUTH EVERYDAY AT BEDTIME 11/01/2022 Active tadalafiL (CIALIS, ADCIRCA) 20 MG tablet Take 5 mg by mouth. 01/03/2022 Active Active Problems Problem Noted Date Diagnosed Date Prostate cancer 03/27/2023 Cancer Staging:Clinical stage from 03/27/2023:Stage IIB(cT1c, cN0, cM0, PSA: 4.9, Grade Group: 2, 03/27/23, Wilma: 3, +: 4) - Signed by Jayden Horta MD, MPH on 03/27/2023 Prediabetes 10/30/2018 External hemorrhoids 05/22/2010 Immunizations Immunization Administration Dates Next Due COVID-19 (Pre-12/03) Moderna Vaccine, mRNA, PF 0 04/27/2020,03/29/2020 Influenza, Unspecified Formulation 10/24/2022 Family History Medical History Relation Comments Breast cancer Father Alzheimer's disease Mother Relation Status Comments Father Mother Social History Tobacco [...] Orientation Straight 02/21/2023 4: 22 PM EST Last Filed Vital Signs Vital Sign Reading Time Taken Comments Blood Pressure 132/76 03/28/2023 8:39 AM EST Pulse 86 03/28/2023 8:39 AM EST Temperature 36.3 C (97.4 F) 03/28/2023 8:39 AM EST Respiratory Rate 18 03/28/2023 8:39 AM EST Oxygen Saturation 96% 03/28/2023 8:39 AM EST Inhaled Oxygen Concentration - - Weight 96.2 kg (212 lb) 03/29/2023 10:52 AM EST Height 174 cm (5' 8.5 ) 03/28/2023 8:39 AM EST Body Mass Index 31.76 03/28/2023 8:39 AM EST Plan of Treatment Health Maintenance Due Date Last Done Comments CREATININE LEVEL 1952 LIPID PANEL 1952 POTASSIUM LEVEL 1952 DEPRESSION SCREENING 1964 SMOKING Hx and SMOKELESS TOBACCO SCREENING 01/19/1965 HEPATITIS C SCREENING 01/19/1970 COLOGUARD 01/19/1997 COLONOSCOPY 01/19/1997 COLORECTAL CANCER SCREENING 01/19/1997 FIT TEST 01/19/1997 FOBT 01/19/1997 SIGMOIDOSCOPY 01/19/1997 VIRTUAL COLONOSCOPY 01/19/1997 ABDOMINAL AORTIC ANEURYSM (AAA) SCREENING 01/19/2017 INFLUENZA VACCINE (#1) 2024 , 11/10/2021, 12/08/2020, Additional history exists COVID-19 VACCINE (2024- season) 2024 11/28/2021, 05/25/2021, 12/08/2020, Additional history exists RSV VACCINE (1 - 1-dose 75+ series) 01/19/2027 Adult Td,Tdap Booster 08/04/2031 08/03/2021, 012 PNEUMOCOCCAL VACCINES (50+ years) Completed 04/21/2018, 02/19/2017 ZOSTER VACCINES Completed 01/05/2020, 10/2019, 12/10/2018, Additional history exists HEPATITIS A VACCINES Aged Out No long er eligible based on patient's age to complete this topic HIB VACCINES Aged Out No longer eligi ble based on patient's age to complete this topic MENINGOCOCCAL VACCINES (ACWY) Aged Out No longer eligible based on patient's age to complete this topic MENINGOCOCCAL VACCINES (B) Aged Out N o longer eligible based on patient's age to complete this topic Medical Devices Not on file Insurance [employer] O MEDICARE REPLACEMENT AETNA O MEDICARE REPLACEMENT AETNA PPO MEDICARE REPLACEMENT AETNA PPO MEDICARE REPLACEMENT AETNA PPO MEDICARE REPLACEMENT AETNA PPO MEDICARE REPLACEMENT Care Teams Electrical Cad Designer Relationship Specialty Start Date End Date Veto Hazel MD [address] [place] [id number] PCP - General Internal Medicine 02/21/23 Jayden Horta MD, MPH [address] [place] [address], [facility] [place] [address] [email or web address] Radiation Oncology 02/22/23 Derek Torres MD [address] [place] [id number] [email or web address] Urology 02/22/23 Bossman Leon MD [address] [place] [phone] [email or web address] Medical Oncology 02/22/23 Additional Source Comments The information contained in this document represents components of the legal health record. It is not the complete legal health record.[facility]
--- OUTSIDE RECORDS SUMMARY | 2024-11-04 14:45 | XMS_ITS | Clinical Summary ---
Author Organization [facility] Address [address] [place] [address] Care Team Providers Care Tank House Supervisor Name Role Phone Pcp, Monika MD Primary [...] Vaccine, 50+ Years (2 of 2 - PCV20 or PCV21) 02/19/2018 02/19/2017 DTaP,Tdap,and Td Vaccines (2 - Td or Tdap) 05/13/2021 05/14/2011 COVID-19 Vaccine (1 - 2023-2 5 season) 2024 Influenza Vaccine (#1) 2024 8, 12/08/2014, 01/11/2009 HPV Vaccines Aged Out No longer eligi ble based on patient's age to complete this topic Hepatitis A Vaccines Aged Out No long er eligible based on patient's age to complete this topic Meningococcal Vaccine Aged Out No maryanne sanju eligible based on patient's age to complete this topic Insurance [employer] Care Teams Tank House Supervisor Relationship Specialty Start Date End Date Monika Sheridan MD [address] [place] [phone] PCP - General Internal Medicine 01/10/18
--- OUTSIDE RECORDS SUMMARY | 2024-11-04 14:45 | XMS_ITS | Clinical Summary ---
Author Organization [facility] Address [address] [place] [address] Care Team Providers Care Contracts Law Professor Name Role Phone Ilir PEPPER MD, Veto Sierra Primary Care Provider [phone] Allergies Active Allergy Reactions Criticality Noted Date [...] - Risk 60-74 years 1-dose series) 2012 Alcohol/Substance Use Screening 02/12/2024 Depression Screening and Follow-Up 02/12/2024 Health Care Proxy Review 02/12/2024 Social Drivers of Health Annual Screening 02/12/2024 COVID-19 Vaccine ( season) 2024 11/28/2021, 05/25/2021, 12/08/2020, Additional history exists Influenza Vaccine (#1) 2024 , 11/10/2021, 12/08/2020, Additional history exists DTaP,Tdap,and Td Vaccines (3 - Td or Tdap) 08/04/2031 08/03/2021, 05/14/2011 Pneumococcal Vaccine: 50+ Years Completed 04/21/2018, 02/19/2017 Zoster Vaccines Completed 01/05/2020, 10/2019, 12/10/2018, Additional history exists Hepatitis B Vaccines Aged Out No long er eligible based on patient's age to complete this topic Insurance A[employer] MCR Care Teams Contracts Law Professor Relationship Specialty Start Date End Date Veto Hazel III, MD PCP - General Internal Medicine 05/29/23
--- OUTSIDE RECORDS SUMMARY | 2024-11-04 14:45 | XMS_ITS | Encounter Summary ---
Author Organization [facility] Address [address] [facility] [address] [place] [address] Phone Care Team Providers Care Review Nurse Name Role Phone Veto Hazel MD Primary Care Provider + Jayden Horta MD, MPH Unavailable [phone] Derek Torres MD Unavailable [phone] Bossman Leon MD Unavailable [phone] Encounter Details Date Type Department Care Team (Late st Contact Info) Description 03/28/2023 Procedure [facility] [place] [facility] [place], MRI [address] [address] Social History Tobacco Use Types Packs/Day Years [...] your housing situation today? 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 marshal [place] 03/21/2023 How many times have you move [...] Sign Reading Time Taken Comments Blood Pressure - - Pulse - - Temperature - - Respiratory Rate - - Oxygen Saturation - - Inhaled Oxygen Concentration - - Weight 96.2 kg (212 lb) 03/29/2023 10:52 AM EST Height - - Body Mass Index 31.76 03/28/2023 8:39 AM EST documented in this encounter Plan of Treatment Not on file documented as of this encounter Visit Diagnoses Not on filedocumented in this encounter Care Teams Review Nurse Relationship Specialty Start Date End Date Veto Hazel MD [address] [place] [phone] PCP - General Internal Medicine 02/21/23 Jayden Horta MD, MPH [address] [place] [address], ASB1[address] [place] [address] [email or web address] Radiation Oncology 02/22/23 Derek Torres MD [address] [place] [phone] [email or web address] Urology 02/22/23 Bossman Leon MD [address] [place] [id number] [email or web address] Medical Oncology 02/22/23 documented as of this encounter Additional Source Comments The information contained in this document represents components of the legal health record. It is not the complete legal health record.[facility]
--- OUTSIDE RECORDS SUMMARY | 2024-11-04 14:45 | XMS_ITS | Clinical Summary ---
Author Organization [address] Address [address] [place] [address] Phone Care Team Providers Care Conservation Science Teacher Name Role Phone Veto Hazel MD Primary Care Provider [phone] Allergies Active Allergy Reactions Criticality Noted Date [...] ACTIVITY FOR 90 DAYS 04/25/19 24 Active Anoro Ellipta 62.5-25 mcg/actuation inhaler TAKE 1 PUFF BY MOUTH EVERY DAY 180 each 1 03/25/19 25 Active albuterol HFA (ProAir HFA) 90 [...] penIndication s:Diet-contro lled type 2 diabetes mellitus (CMS/HCC V24, [facility] V28) INJECT 0.25 MG SUBCUTANEOUSLY EVERY 7 DAYS 9 mL 1 06/09/19 25 Active famotidine (PEPCID) 20 mg tablet Take 1 tablet (20 mg total) by mouth 2 (two) times a day. 60 tablet 5 08/13/19 25 Active lisinopriL (PRINIVIL,ZES TRIL) 10 mg tablet TAKE 1 TABLET BY MOUTH EVERY DAY 90 tablet 1 10/14/19 25 Active simvastatin (ZOCOR) 20 mg tablet TAKE 1 TABLET BY MOUTH EVERYDAY AT BEDTIME 90 tablet 1 10/21/19 25 Active lisinopriL (PRINIVIL,ZES TRIL) 10 mg tablet TAKE 1 TABLET BY MOUTH EVERY DAY 90 tablet 1 03/24/19 25 2024 Discontinued simvastatin (ZOCOR) 20 mg tablet Take 1 tablet (20 mg total) by mouth at bedtime. 90 tablet 04/29/19 25 2024 Discontinued Active Problems Problem Noted Date Diagnosed Date Prostate CA ([facility] V24, [facility] V28) 3 Type 2 diabetes mellitus wit h peripheral vascular disease ([facility] V24, [facility] V28) 05/03/2021 Chronic obstructive pulmonar y disease ([facility] V24, [facility] V28) 12/25/2019 Allergic rhinitis due to pollen 12/19/2018 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 ([facility] V24, [facility] V28) 10/30/2018 Lumbar spinal stenosis 12/04/2017 [...] Encounters Date Type Department Care Team Description 10/29/2024 4:30 PM EDT Office Visit Walk[facility] - [address] [phone] Alejandro Lockhart PA Episode of transient neurologic symptoms (Primary Dx) 09/16/2024 2:15 PM EDT Office Visit [facility] - [address] [phone] Salvador Ocasio NP Encounter for removal of sutures (Primary Dx) 08/13/2024 11:30 AM EDT Office Visit Adult Medicine [address] [phone] Veto Hazel MD Diet-controlled type 2 diabetes mellitus ([facility] V24, [facility] V28) (Primary Dx); Hypercholesteremia; Encounter for long-term (current) use of medications; Essential hypertension, benign; Gastroesophageal reflux disease without esophagitis 08/04/2024 10:15 AM EDT Treatment Outpatient [address] [phone] Tay Kitchen, PT Balance problem (Primary Dx) from Last 3 Months Immunizations [...] no polyps. UPPER GASTROINTESTINAL ENDOSCOPY 2005 PROCEDURE: [place] UPPER GI ENDOSCOPY PERFORMED; COMMENT: grade B reflux esophagitis. UPPER GASTROINTESTINAL ENDOSCOPY 06/04/2018 PROCEDURE: [place] UPPER GI ENDOSCOPY PERFORMED; COMMENT: normal on [...] your loved ones. For example, child care center assistant director or elderly care for an older adult? [...] Sign Reading Time Taken Comments Blood Pressure 153/84 10/29/2024 4:31 PM EDT Pulse 91 10/29/2024 4:31 PM EDT Temperature 36.8 C (98.2 F) 10/29/2024 4:31 PM EDT Respiratory Rate 14 08/13/2024 11:23 AM EDT Oxygen Saturation 97% 10/29/2024 4:31 PM EDT Inhaled Oxygen Concentration - - Weight 87.1 kg (192 lb) 08/13/2024 11:23 AM EDT Height 177.8 cm (5' 10 ) 08/13/2024 11:23 AM EDT Body Mass Index 27.55 08/13/2024 11:23 AM EDT Plan of Treatment Upcoming Encounters Date Type Department Care Team (Late st Contact Info) Description 03/11/2025 11:30 AM EST Office Visit Adult Medicine [address] [phone] Veto Hazel MD [address] [place] [phone] Health Maintenance Due Date Last Done Comments RSV Immunization Adult Patients (1 - Risk 60-74 years 1-dose series) 2012 Medicare Annual Wellness Visit 2022 Diabetes: Annual Foot Exam 05/03/2022 05/03/2021 Diabetes: Annual Retina Eye Exam 09/24/2024 09/25/2023 COVID-19 Vaccine (8 - Moderna risk 2023- season) 2024 02/23/2024, 11/28/2021, 05/25/2021, Additional history exists Influenza Vaccine (#1) 2024 , 03/14/2024, 10/24/2022, Additional history exists Diabetes: Blood Sugar Control Test (HGBA1C) 02/13/2025 08/13/2024, 02/13/2024, 08/05/2023 Falls Risk Assessment 04/28/2025 04/28/2024 , 02/13/2024, [...] 01/05/2020, 08/0 10/2019, 12/10/2018, Additional history exists Depression Screening Completed 04/28/2024 HIB Vaccines Aged Out No longer eligi [...] AM EDT Diet-controlled type 2 diabetes mellitus ([facility]/HCC V24, CMS/HCC V28) LIPID PANEL WITH REFLEX TO DIRECT LDL Routine 08/13/2024 11:56 AM EDT Hypercholesteremia COMPREHENSIVE METABOLIC PANEL Routine 08/13/2024 11:56 AM EDT Diet-controlled type 2 diabetes mellitus (CMS/HCC V24, CMS/HCC V28) Encounter for long-term (current) use of medications Essential hypertension, benign MICROALBUMIN CREATININE URINE RATIO Routine 08/13/2024 11:56 AM EDT Diet-controlled type 2 diabetes mellitus (CMS/HCC V24, [...] LAB CHEMISTRY METHOD 08/13/2024 2:35 PM EDT [facility] Triglycerides 67 0 - 150 mg/dL LAB CHEMISTRY METHOD 08/13/2024 2:35 PM EDT [facility] HDL 46 >=40 mg/dL LAB CHEMISTRY METHOD 08/13/2024 2:35 PM EDT [facility] LDL Calculated 60 0 - 100 mg/dL LAB CHEMISTRY METHOD 08/13/2024 2:35 PM EDT [facility] VLDL Cholesterol Rogelio 13.4 mg/dL LAB CHEMISTRY METHOD 08/13/2024 2:35 PM EDT [facility] Non HDL Chol. (LDL+VLDL) 73 <145 mg/dL LAB CHEMISTRY METHOD 08/13/2024 2:35 PM EDT [facility] Chol/HDL Ratio 2.6 0.0 - 4.4 LAB CHEMISTRY METHOD 08/13/2024 2:35 PM EDT [facility] Blood Venous blood specimen / Unknown Venipuncture / Unknown 08/13/2024 11:56 AM EDT 08/13/2024 11:56 AM EDT us Veto Hazel MD LAB BLOOD ORDERABLES Final Resu lt [facility] [address] [place] [address], * Microalbumin creatinine urine ratio (08/13/2024 11:56 AM EDT) Creatinine, Urine 55.0 mg/dL LAB CHEMISTRY METHOD 08/13/2024 5:20 PM EDT [facility] Microalb, Ur 15.0 0.0 - 29.0 mg/L LAB CHEMISTRY METHOD 08/13/2024 5:20 PM EDT [facility] Microalb/Creat Ratio 27 <30 mg/g creat LAB CHEMISTRY METHOD 08/13/2024 5:20 PM EDT [facility] Urine Urine specimen obtained by clean catch procedure / Unknown Non-blood Collection / Unknown 08/13/2024 11:56 AM EDT 08/13/2024 11:56 AM EDT us Vteo Hazel MD LAB URINE ORDERABLES Final Resu lt Performing Organization Address [facility]/ZIP Co de Phone Number [facility] [address] [place] [address], [place] [phone] * Hemoglobin A1c (08/13/2024 11:56 AM EDT) Hemoglobin A1C 5.1 <6.5 % LAB CHEMISTRY METHOD 08/13/2024 8:41 PM EDT [facility] Mean Bld Glu Estim. 100 mg/dL LAB CHEMISTRY METHOD 08/13/2024 8:41 PM EDT [facility] Blood Venous blood specimen / Unknown Venipuncture / Unknown 08/13/2024 11:56 AM EDT 08/13/2024 11:56 AM EDT us Veto Hazle MD LAB BLOOD ORDERABLES Final Resu lt Performing Organization Address [facility]/ZIP Co de Phone Number [facility] [address] [place] [address], [place] [phone] * (ABNORMAL) Comprehensive metabolic panel (08/13/2024 11:56 AM EDT) Sodium 142 133 - 145 mmol/L LAB CHEMISTRY METHOD 08/13/2024 3:07 PM EDT [facility] Potassium 4.1 3.5 - 5.5 mmol/L LAB CHEMISTRY METHOD 08/13/2024 3:07 PM EDT [facility] Chloride 113(H) 96 - 110 mmol/L LAB CHEMISTRY METHOD 08/13/2024 3:07 PM [facility] CO2 21 21 - 32 mmol/L LAB CHEMISTRY METHOD 08/13/2024 3:07 PM [facility] Anion Gap 8 3 - 11 LAB CHEMISTRY METHOD 08/13/2024 3:07 PM [facility] Glucose 103(H) 70 - 100 mg/dL LAB CHEMISTRY METHOD 08/13/2024 3:07 PM [facility] BUN 24 5 - 25 mg/dL LAB CHEMISTRY METHOD 08/13/2024 3:07 PM [facility] Creatinine 1.15 0.70 - 1.30 mg/dL LAB CHEMISTRY METHOD 08/13/2024 3:07 PM [facility] eGFR 68 >=60 mL/min/1. 73m2 LAB CHEMISTRY METHOD 08/13/2024 3:07 PM [facility] Comment:Calculation based on the Chronic Kidney Disease Epidemiology Collaboration (CKD-EPI) equation refit without adjustment for race. BUN/Creatinine Ratio 20.9 LAB CHEMISTRY METHOD 08/13/2024 3:07 PM [facility] Calcium 8.9 8.5 - 10.5 mg/dL LAB CHEMISTRY METHOD 08/13/2024 3:07 PM [facility] AST (SGOT) 15 10 - 42 unit/L LAB CHEMISTRY METHOD 08/13/2024 3:07 PM [facility] ALT (SGPT) 24 10 - 60 unit/L LAB CHEMISTRY METHOD 08/13/2024 3:07 PM [facility] Alkaline Phosphatase 102 42 - 121 unit/L LAB CHEMISTRY METHOD 08/13/2024 3:07 PM [facility] Total Protein 7.0 6.0 - 8.0 g/dL LAB CHEMISTRY METHOD 08/13/2024 3:07 PM [facility] Albumin 3.8 3.2 - 5.0 g/dL LAB CHEMISTRY METHOD 08/13/2024 3:07 PM EDT [facility] Total Bilirubin 0.7 0.0 - 1.4 mg/dL LAB CHEMISTRY METHOD 08/13/2024 3:07 PM EDT [facility] Blood Venous blood specimen / Unknown Venipuncture / Unknown 08/13/2024 11:56 AM EDT 08/13/2024 11:56 AM EDT us Veto Hazel MD LAB BLOOD ORDERABLES Final Resu lt [facility]) [facility] [address] [place] [address], [place] [phone] * [place] ABDOMINAL AORTA REAL TIME SCREEN [...] Maintenance Insurance [employer] MEDICARE ADVANTAGE Care Teams Conservation Science Teacher Relationship Specialty Start Date End Date Veto Hazel MD [address] [place] [address] PCP - General Internal Medicine 12/31/23
--- OUTSIDE RECORDS SUMMARY | 2024-11-04 14:45 | XMS_ITS | Clinical Summary ---
Author Organization [facility] Address [address] [place] [address] Care Team Providers Care Currency Counter Name Role Phone Vane Sales MD Primary Care Provider [phone] Allergies Active Allergy Reactions Criticality Noted Date [...] 0 01/11/2022 Active Diclofenac Sodium 1 % GELIndications:Commodity Analyst chelsi bilateral low back pain with right-sided [...] Risk Assessment 01/19/2017 COVID-19 Vaccine ( season) 2024 11/28/2021, 05/25/2021, [...] age to complete this topic Care Teams Currency Counter Relationship Specialty Start Date End Date Vane Sales MD [address] [place] [address] [address] [place] [address] PCP - General Family Medicine 01/11/22
--- OUTSIDE RECORDS SUMMARY | 2024-11-04 14:45 | XMS_ITS | Data Portability ---
Author Organization [facility], [facility] Address [address] [place] [address] Care Team Providers Care Fertilizer Supervisor Name Role Phone FLAVIA PEARCE Primary Care [...] Address Organization Details Recorded Time No complaints [id number] Active Status : 'I'; Not Available [employer] 4 09:11:42 Arthritis of right knee [id number] 102 Active 2023 Brandy Walter CNP [address], [place], [address] , [facility] 4 21:53:48 Problem Notes None recorded. Procedures Surgical History Date Name Laterality Status Provider Name and Address Organization Details Recorded Time Euflexxa Knee Injection completed Brandy Walter CNP [address], [place], [address], [facility] 06/07/2023 09:55:41 4 Euflexxa Knee Injection completed Dashawn Duque PA-C [address], [place], [address], [facility] 05/28/2023 21:01:43 4 Euflexxa Knee Injection completed Guido Hurst PA-C [address], [place], [address], [facility] 05/22/2023 07:35:35 Imaging Results None recorded. [...] Address Organization Details Last Updated DateTime 05/22/2023 40136.4 g 30.1 kg/m2 177.8 cm [facility] 05/22/2023 09:11:55 Date Recorded Body height Body mass index (BMI) Body weight Provider Name and Address Organization Details Last Updated DateTime 05/29/2023 177.8 cm 30.1 kg/m2 31752.4 g Marvin Barreto [facility] 05/29/2023 08:50:54 Date Recorded Body height Body mass index (BMI) Body weight Provider Name and Address Organization Details Last Updated DateTime 06/07/2023 177.8 cm 30.1 kg/m2 53270.4 g [facility]ENZIN GARRETT [facility] Wilburn [facility] 06/07/2023 09:10:28 Social History Question Answer Notes LastModified by [email or web address] Details LastModified Time Tobacco Smoking Status Never Smoker PEREZ kolb [place] [facility] 05/22/2023 09:13:58 Have You Ever Been Counseled For Unhealthy Alcohol Use? No Information not available 05/22/2023 What Is Your Relationship Status? Single Information not available 05/22/2023 Sex: Unknown Functional Status Question Answer Note LastModified by [email or web address] Details LastModified Time How many times per [...] Anemia N Vascular Disease N Heart Attack ([place]) N Gastrointestinal Disease N Diabetes N Autoimmune [...] Diagnosis SNOMED-CT Code Diagnosis ICD10 Code Diagnosis IMO Codes Diagnosis Note [id number] Guido Hurst PA-C [place] [address] [place] [address] 05/22/2023 08:58:50 06/12/2023 11:59:20 Osteoarthritis of right knee joint 4615030606 68591 M17.11 [id number] Dashawn Duque PA-C [address] [place] [address] 05/29/2023 08:34:56 05/29/2023 09:44:28 Osteoarthritis of right knee joint 8746050432 36587 M17.11 [id number] Brandy Walter CNP [place] [place] [address] 06/07/2023 08:57:59 06/21/2023 08:40:10 Arthritis of right knee 6400130413 591562 M13.861 Health Concerns Section Related Observation LastModified by Organization Detai ls LastModified Time None Recorded Concern Status LastModified by Organization Details LastModified Time None Recorded Advance Directives Directive None Recorded Payers Insurance Date Sequence Insurance Name Policy Number Policy Mcclure Covered Member ID Mcclure Member ID Guarantor Name 01/07/2024 1 [employer] (MEDICARE REPLACEMENT/ ADVANTAGE - PPO) [id number] Iker Duran [id number] Iker Duran Notes Date Note Type Note Provider Name and Address Organization Details Recorded Time 05/22/2023 text/html I am seeing the patient today under the supervision of Dr. Mosqueda who was available but did not see the patient. Guido Hurst PA-C [address], [place], [address], [facility] 05/22/2023 09:37:43 06/07/2023 text/html ROS as noted in the HPI Iker is here for his third euflexxa injection in the right knee. Brandy Walter CNP [address], [place], [address], [facility] 06/07/2023 09:55:54
--- OUTSIDE RECORDS SUMMARY | 2024-11-04 14:45 | XMS_ITS ---
Author Organization [facility] [address] [place] [address] Address [address] [place] [address] Phone Care Team Providers Care Kidney Trimmer Name Role Phone Veto Hazel MD Primary Care Provider [phone] Active Problems Problem Noted Date Diagnosed Date Prostate CA ([facility] V24, [facility] V28) 3 Type 2 diabetes mellitus wit h peripheral vascular disease ([facility] V24, [facility] V28) 05/03/2021 Chronic obstructive pulmonar y disease ([facility] V24, [facility] V28) 12/25/2019 Allergic rhinitis due to pollen 12/19/2018 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 ([facility] V24, [facility] V28) 10/30/2018 Lumbar spinal stenosis [...] treatments are documented for this patient in [facility]. Treatments may have been administered in another system. Lifetime Dose Tracking * Chemical Lifetime Dose Automatic Entry Manual Entr y Radiation (DLP) 115.6 mGy-cm 115.6 mGy-cm 0 mGy-cm CTDIvol 3.22 mGy 3.22 mGy 0 mGy
== END 2024-11-04 12:28 | disposition home or self-care (01) ==
LOC: HO.HSM 11:45
PROVIDERS: PCP Internal Medicine; Visit Provider Psychiatry & Neurology Neurology
DX: G31.84 Mild cognitive impairment of uncertain or unknown etiology (principal); G57.32 Lesion of lateral popliteal nerve, left lower limb
CPT/HCPCS: 99214

== ENCOUNTER → 2024-11-04 11:44 | Outpatient (BNVA) | payer MEDICARE, SELFPAY | PROVIDERS: PCP Internal Medicine; Visit Provider Psychiatry & Neurology Neurology | DX: G31.84 Mild cognitive impairment of uncertain or unknown etiology (principal); G57.32 Lesion of lateral popliteal nerve, left lower limb | CPT/HCPCS: 99212 ==

== ENCOUNTER 2024-11-10 09:50 | Outpatient (REF) | payer MEDICARE, SELFPAY ==
--- NOTE | 2024-11-10 10:09 | EMG_ITS ---
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 EMG of the left L4-S1 innervated muscles consistent with chronic distal neuropathic changes. Please see detailed neurophysiological report MTDD
--- OUTSIDE RECORDS SUMMARY | 2024-11-10 10:42 | XMS_ITS | Clinical Summary ---
Author Organization [facility] Address [address] [place] [address] Care Team Providers Care Coat Repair Inspector Name Role Phone Vane Sales MD Primary Care Provider [phone] Allergies Active Allergy Reactions Criticality Noted Date [...] 0 01/11/2022 Active Diclofenac Sodium 1 % GELIndications:Account Executive Sales Representative chelsi bilateral low back pain with right-sided [...] age to complete this topic Care Teams Coat Repair Inspector Relationship Specialty Start Date End Date Vane Sales MD [address] [place] [address] [address] [place] [address] PCP - General Family Medicine 01/11/22
--- OUTSIDE RECORDS SUMMARY | 2024-11-10 10:42 | XMS_ITS | Encounter Summary ---
Author Organization [facility] Address [address] [facility] [address] [place] [address] Phone Care Team Providers Care Point Of Care Specialist Name Role Phone Veto Hazel MD Primary Care Provider + [place]den Horta MD, MPH Unavailable [phone] Derek Torres MD Unavailable [phone] Bossman Leon MD Unavailable [phone] Encounter Details Date Type Department Care Team (Late st Contact Info) Description 03/28/2023 Procedure Pass [facility] Cancer Ong - [place], MRI [address] [address] Social History Tobacco Use Types [...] on filedocumented in this encounter Care Teams Point Of Care Specialist Relationship Specialty Start Date End Date Veto Hazel MD [address] [place] [address] PCP - General Internal Medicine 02/21/23 [place]den Horta MD, MPH [address] [place] [address], ASB1[address] [place] [address] [email or web address] [email or web address] Oncology 02/22/23 Derek Torres MD [address] [place] [phone] [email or web address] 02/22/23 Bossman Leon MD [address] [place] [id number] [email or web address] Medical Oncology 02/22/23 documented as of this encounter Additional Source Comments The information contained in this document represents components of the legal health record. It is not the complete legal health record.[facility]
--- OUTSIDE RECORDS SUMMARY | 2024-11-10 10:42 | XMS_ITS ---
Author Organization [facility] [address] [place] [address] Address [address] [place] [address] Phone Care Team Providers Care Floor Space Allocator Name Role Phone Veto Hazel MD Primary Care Provider [phone] Active Problems Problem Noted Date Diagnosed Date Prostate CA ([facility] V24, [facility] V28) 3 Type 2 diabetes mellitus wit h peripheral vascular disease ([facility] V24, [facility] V28) 05/03/2021 Chronic obstructive pulmonar y disease ([facility] V24, [facility] V28) 12/25/2019 Allergic rhinitis due to pollen 12/19/2018 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 ([facility] V24, [facility] V28) 10/30/2018 Lumbar spinal stenosis 12/04/2017 [...] until 2016. Essential hypertension, benign 09/03/2005 Current Treatment and Therapy Plans No current plan information found. Past Treatment and Therapy Plans No past plan information found. Lifetime Dose Tracking * Chemical Lifetime Dose Automatic Entry Manual Entr y Radiation (DLP) 115.6 mGy-cm 115.6 mGy-cm 0 mGy-cm CTDIvol 3.22 mGy 3.22 mGy 0 mGy
--- OUTSIDE RECORDS SUMMARY | 2024-11-10 10:42 | XMS_ITS | Clinical Summary ---
Author Organization [facility] Address [address] [place] [address] Care Team Providers Care Phosphoric Acid Supervisor Name Role Phone Pcp, Monika MD [...] complete this topic Insurance [employer] Care Teams Phosphoric Acid Supervisor Relationship Specialty Start Date End Date Monika Sheridan MD [address] [place] [address] PCP - General Internal Medicine 01/10/18
--- OUTSIDE RECORDS SUMMARY | 2024-11-10 10:42 | XMS_ITS | Data Portability ---
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 We proceeded with the first of the Euflexxa series today. He tolerated this very well. Postinjection instructions reviewed. Icing protocol reviewed. He will return in 1 week for the third and final of the series. Questions invited and answered. Patient verbalizes understanding and agreement with plan. PRIOR : Symptomatic right knee osteoarthritis. We proceeded with the first of the Euflexxa series today. He tolerated this very well. Postinjection instructions reviewed. Icing protocol reviewed. He will return in 1 week for the second of the series. Questions invited and answered. Patient verbalizes understanding and agreement with plan. PRIOR : Symptomatic right knee osteoarthritis. He wants to do everything possible to try to avoid a knee replacement. He has had good success previously with Euflexxa. He would like another round. He already has authorization through [employer], but they were not able to get him in for over a month for the injections and he would like to do them sooner. We will see if they can change the authorization to us and we will start the series. He will continue a self-directed home exercise program. Not available 02/26/2024 11:51:37 03/06/2024 03/06/2024 Symptomatic right knee osteoarthritis. We proceeded with the third and final of the Euflexxa series today. He tolerated this very well. Postinjection instructions reviewed. Icing protocol reviewed. He will follow up as needed. Questions invited and answered. Patient verbalizes understanding and agreement with plan. PRIOR : Symptomatic right knee osteoarthritis. We proceeded with the second of the Euflexxa series today. He tolerated this very well. Postinjection instructions reviewed. Icing protocol reviewed. He will return in 1 week for the second of the series. Questions invited and answered. Patient verbalizes understanding and agreement with plan. PRIOR : Symptomatic right knee osteoarthritis. He wants to do everything possible to try to avoid a knee replacement. He has had good success previously with Euflexxa. He would like another round. He already has authorization through [employer], but they were not able to get him in for over a month for the injections and he would like to do them sooner. We will see if they can change the authorization to us and we will start the series. He will continue a self-directed home exercise program. Not available 03/06/2024 15:39:56 09/11/2024 09/11/2024 Symptomatic moderate to severe right knee osteoarthritis. We again reviewed the natural history and prognosis. He is currently not interested in surgical intervention. We proceeded with the first Euflexxa injection today. He tolerated this very well. Postinjection instructions reviewed. He will follow-up next week for the second of the series. Questions invited and answered. Patient verbalizes understanding and agreement with plan. Patient was seen and evaluated by Sujit Ferris PA-C in indirect conjunction with Documenting Provider: Jose D Celestin MD He/She agrees with history, physical examination, tests/diagnostic imaging, and treatment plan. Not available 09/11/2024 16:00:36 09/18/2024 09/18/2024 Symptomatic right knee osteoarthritis. Yes that we proceed with the second Euflexxa injection. He requested the freeze spray. He tolerated the injection well. Postinjection instructions reviewed. We will see him back next week for the final injection. PRIOR ESTRELLA: Symptomatic moderate to severe right knee osteoarthritis. We again reviewed the natural history and prognosis. He is currently not interested in surgical intervention. We proceeded with the first Euflexxa injection today. He tolerated this very well. Postinjection instructions reviewed. He will follow-up next week for the second of the series. Not available 09/18/2024 14:20:42 09/25/2024 09/25/2024 Symptomatic right knee osteoarthritis. We proceeded with the third Euflexxa injection. He requested the freeze spray. He tolerated the injection well. Postinjection instructions reviewed. Follow up as needed. Questions invited and answered. Patient verbalizes understanding and agreement with plan. PRIOR : Symptomatic right knee osteoarthritis. Yes that we proceed with the second Euflexxa injection. He requested the freeze spray. He tolerated the injection well. Postinjection instructions reviewed. We will see him back next week for the final injection. PRIOR ESTRELLA: Symptomatic moderate to severe right knee osteoarthritis. We again reviewed the natural history and prognosis. He is currently not interested in surgical intervention. We proceeded with the first Euflexxa injection today. He tolerated this very well. Postinjection instructions reviewed. He will follow-up next week for the second of the series. Not available 09/25/2024 22:23:33 Plan of Treatment Reminders Order Date Submit Date Provider Last Modified By Organization Details Last Modified Time Details Appointments None recorded. Lab None recorded. Referral None recorded. Procedures None recorded. Surgeries None recorded. Imaging None recorded. Medication Orders Euflexxa 10 mg/mL (mw 2.4-3.6 million) intra-kraig cular syringe 2024 025 [email or web address] Not available 08:15:38 Euflexxa 10 mg/mL (mw 2.4-3.6 million) intra-kraig cular syringe 2024 025 [email or web address] [facility] #[id number], [address] [place], [address], 14:59:18 Euflexxa 10 mg/mL (mw 2.4-3.6 million) intra-kraig cular syringe 2024 025 [email or web address] [id number], [address] [place], [address], 16:35:29 Euflexxa 10 mg/mL (mw 2.4-3.6 million) intra-kraig cular syringe 2024 025 [email or web address] [id number], [address] [place], [address], 16:17:34 Euflexxa 10 mg/mL (mw 2.4-3.6 million) intra-kraig cular syringe 2024 025 [email or web address] [id number], [address] [place], [address], 11:52:44 Patient TargetsNo targets recorded. Patient Instructions Encounter Date Encounter Id Patient Instructions Last Modified By Organization Details Last Modified Time 09/18/2024 [id number] Patient Instruct ions Following Viscosupplementation Injections Dr. Celestin has recommended an injection for you in the office today. He has injected the area in order to reduce the pain that you are experiencing from your arthritis. Please note that not everyone will have a lasting response following the injection. Here is some information that he would like for you to have: Content of the Injection: The injection consists of a lubricating injection called hyaluronic acid. You may experience a small increase in pain following the injection. Dr. Celestin recommends icing the affected area for 20 minutes 3-4 times per day. Post-injection Instructions: It is recommended that you refrain from any high level activities using the joint or limb that was injected for approximately 24-48 hours. Normal day to day activities are generally not a problem. Possible Side Effects Skin discoloration: Individuals with dark complexions may experience some skin discoloration locally at the site of the injection. Flare-Up: There is the possibility of an increase in discomfort within 48 hours following the injection. This is called a natali combs . To help minimize the chances of this, please see the post-injection instructions above. Infection: There is a less than 1% chance of an infection. If you notice any signs of infection (redness, warmth, drainage, fever greater than 100 degrees) you should call Dr. Celestin s office immediately at [phone]. Not available 09/18/2024 06:30:24 09/25/2024 [id number] Patient Instruct ions Following Viscosupplementation Injections Dr. Celesitn has recommended an injection for you in the office today. He has injected the area in order to reduce the pain that you are experiencing from your arthritis. Please note that not everyone will have a lasting response following the injection. Here is some information that he would like for you to have: Content of the Injection: The injection consists of a lubricating injection called hyaluronic acid. You may experience a small increase in pain following the injection. Dr. Celestin recommends icing the affected area for 20 minutes 3-4 times per day. Post-injection Instructions: It is recommended that you refrain from any high level activities using the joint or limb that was injected for approximately 24-48 hours. Normal day to day activities are generally not a problem. Possible Side Effects Skin discoloration: Individuals with dark complexions may experience some skin discoloration locally at the site of the injection. Flare-Up: There is the possibility of an increase in discomfort within 48 hours following the injection. This is called a natali combs . To help minimize the chances of this, please see the post-injection instructions above. Infection: There is a less than 1% chance of an infection. If you notice any signs of infection (redness, warmth, drainage, fever greater than 100 degrees) you should call Dr. Celestin s office immediately at [phone]. Not available 09/25/2024 15:52:18 Reason for Referral None Reported. Problems Name Problem SNOMED Code Status Onset Date Resolution Date Notes Provider Name and Address Organization Details Recorded Time Benign essential hypertens ion 0760517 Active 2005 Essential hypertens ion, benign Not Available [facility] 5 00:01:31 Gastro-es ophageal reflux disease with esophagit is 106286312 Active 2005 Gastro-es ophageal reflux disease with esophagit is - Overview: Formattin g of this note might be different from the original. Overview: Erosive esophagit is on EGD 2005. 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 Overview: EGD, duodenal biopsies, colonosco py, performed 12.10.05. Minimal reflux esophagit is. Small polyps in the lower rectum referred to surgery for removal. Duodenal biopsies revealed giardiasi s and treatment was given. rectal polyp pathology : Fibroepit helial polyps consisten t with internal hemorrhoi ds. No colon cancer screening necessary until 2016. Not Available [facility] 5 00:01:31 Hyperchol esterolem ia 11058201 Active 2006 Hyperchol esteremia Not Available [facility] 5 00:01:32 Amblyopia 576718155 Active 2008 Amblyopia - Overview: Formattin g of this note might be different from the original. Overview: refractiv e os BVA Not Available [facility] 5 00:01:30 External hemorrhoi ds 06765029 Active 2010 External hemorrhoi ds Not Available [facility] 5 00:01:32 Glaucoma suspect 732506710 Active 2011 Glaucoma suspect Not Available [facility] 5 00:01:31 Nuclear sclerosis 967927585 Active 2011 Nuclear sclerosis Not Available [facility] 5 00:01:33 Erectile dysfuncti on 749995488 Active 2012 Erectile dysfuncti on Not Available [facility] 5 00:01:32 Nodule of lung 933860883 Active 2015 Pulmonary nodule - Overview: Formattin g of this note might be different from the original. Overview: CT of chest 12/06/15 shows a 0.8 cm right middle lobe nodule . Repeat 3-6 months suggested stability . Not Available [facility] 5 00:01:32 Low back pain 676074748 Active 2016 Lumbar pain with radiation down left leg Not Available [facility] 5 00:01:31 Pain of bilateral hands 08091721669 181349 Active 2016 Bilateral hand pain Not Available [facility] 5 00:01:32 Weak urinary stream due to benign prostatic hypertrop hy 51083196350 9100 Active 2016 Benign prostatic hyperplas ia with weak urinary stream Not Available [facility] 5 00:01:30 Lipoma of skin and subcutane ous tissue of neck 14528860 Active 2017 Lipoma of neck Not Available [facility] 5 00:01:33 Spinal stenosis of lumbar region 78969888 Active 2017 Lumbar spinal stenosis Not Available [facility] 5 00:01:30 Prediabet es 184037618 Active 2018 Prediabet es Not Available [facility] 5 00:01:31 Pain of knee region 2275537742 Active [address], [place], [address] , [place] [facility] 5 08:22:55 Osteoarth ritis of right knee joint 16534053538 9100 Active [address], [place], [address] , [place] [facility] 5 08:23:22 Osteoarth ritis of knee 937049887 Active [address], [place], [address] , [place] [facility] 5 15:39:05 Problem Notes None recorded. Procedures Surgical History Date Name Laterality Status Provider Name and Address Organization Details Recorded Time 5 Euflexxa Knee Inj completed [address], [place], [address], [place] [facility] 09/25/2024 22:22:29 5 Euflexxa Knee Inj completed MD [address], [place], [address], [place] [facility] 09/18/2024 14:20:16 5 Euflexxa Knee Inj completed [address], [place], [address], [place] [facility] 09/11/2024 15:57:27 5 Euflexxa Knee Inj completed SUJIT FERRIS PA-C [address], [place], [address], [place] [facility] 03/06/2024 15:40:02 5 Euflexxa Knee Inj completed SUJIT FERRIS PA-C [address], [place], [address], [place] [facility] 02/26/2024 11:51:57 5 Euflexxa Knee Inj completed SUJIT FERRIS PA-C [address], [place], [address], [place] [facility] 02/21/2024 14:54:04 Imaging Results None recorded. Procedure Notes None recorded. Medical Equipment None Reported. Allergies Allergen ID Allergen Name Allergen Category Reaction Reaction Severity Criticality Documentation Date Start Date Code Code System Note Provider Name and Address Organization Details Recorded Time 84307 naproxen medicatio n Not available Not available Not available 11/03/20242019 7258 RxNorm Gi bleed Not Available [facility] 01:21:31 Medications Name Sig Start Date Stop Date Status Note LastModified by Organization Details LastModified Time cyclobenzap rine 10 mg tablet TAKE 1 TABLET (ORAL) EVERY DAY AT BEDTIME (MUSCLE SPASM) FOR 10 DAYS CANNOT OPERATE ANY MACHINERY 09/18 completed Not Available Not Available Not Available methocarbam ol 500 mg tablet TAKE 1 TABLET (500 MG) BY MOUTH 4 TIMES A DAY NEEDED FOR MUSCLE SPASM 09/25 completed Not Available Not Available Not Available acetaminoph en 325 mg tablet TAKE 1 TABLET BY MOUTH EVERY 6 (SIX) HOURS NEEDED ( NEEDED FOR MODERATE PAIN (4-6)). 02/19 completed Not Available Not Available Not Available doxycycline hyclate 100 mg capsule PLEASE SEE ATTACHED FOR DETAILED DIRECTION S 09/08 completed Not Available Not Available Not Available sildenafil 50 mg tablet 02/20 completed Not Available Not Available Not Available clomiphene citrate 50 mg tablet TAKE 1 TABLET BY MOUTH ON MONDAYS, SATURDAY S AND FRIDAYS FOR 90 DAYS. 11/25/ 2022 active Not Available Not Available Not Avai lable senna 8.6 mg tablet TAKE TWO TABLETS BY MOUTH EVERY TWELVE HOURS NEEDED FOR CONSTIPAT ION UNTIL BOWEL MOVEMENT has returned TO normal 02/19 completed Not Available Not Available Not Available prednisone 20 mg tablet TAKE 2 TABLETS (40 MG TOTAL) BY MOUTH ONE TIME EACH DAY FOR 5 DAYS. active Not Available Not Available No t Available omeprazole 40 mg capsule,del ayed release TAKE 1 CAPSULE BY MOUTH EVERY DAY 09/25 completed Not Available Not Available Not Available minoxidil 2.5 mg tablet TAKE 2 TABLETS ORALLY DAILY FOR 90 DAYS active Not Available Not Available No t Available aspirin 81 mg tablet,arin yed release TAKE ONE TABLET BY MOUTH TWICE DAILY 02/19 completed Not Available Not Available Not Available sildenafil 100 mg tablet PLEASE SEE ATTACHED FOR DETAILED DIRECTION S active Not Available Not Available No t Available amoxicillin 500 mg tablet TAKE FOUR TABLETS (2,000 MG TOTAL) BY MOUTH ONCE FOR 1 DOSE. 1 HOUR BEFORE DENTAL PROCEDURE 09/08 completed Not Available Not Available Not Available ketorolac 0.5 % eye drops INSTILL ONE DROP INTO LEFT EYE EVERY DAY FOR 3 DAYS 2021 active Not Available Not Available Not Avai lable meloxicam 7.5 mg tablet TAKE ONE TABLET BY MOUTH DAILY. 02/19 completed Not Available Not Available Not Available famotidine 20 mg tablet TAKE 1 TABLET BY MOUTH TWICE A DAY active Not Available Not Available No t Available gabapentin 800 mg tablet TAKE 1 TAB BY MOUTH 3 TIMES DAILY FOR 180 DAYS. 2017 active Not Available Not Available Not Avai lable simvastatin 20 mg tablet TAKE 1 TABLET BY MOUTH EVERYDAY AT BEDTIME active Not Available Not Available No t Available lisinopril 10 mg tablet TAKE 1 TABLET BY MOUTH EVERY DAY active Not Available Not Available No t Available docusate sodium 100 mg capsule TAKE ONE CAPSULE BY MOUTH EVERY TWELVE HOURS FOR CONSTIPAT ION 02/19 completed Not Available Not Available Not Available hydrochloro thiazide 25 mg tablet TAKE 1 TABLET BY MOUTH EVERY DAY 02/19 completed Not Available Not Available Not Available albuterol sulfate HFA 90 mcg/actuati on aerosol inhaler INHALE 2 PUFFS BY MOUTH EVERY 4 (FOUR) HOURS IF NEEDED FOR WHEEZING OR SHORTNESS OF BREATH active Not Available Not Available No t Available morphine 15 mg immediate release tablet TAKE 1 TABLET BY MOUTH EVERY 4 HOURS NEEDED FOR PAIN FOR UP TO 7 DAYS 2017 active Not Available Not Available Not Avai lable lisinopril 40 mg tablet Take 40 mg by mouth daily. 01/11 completed Not Available Not Available Not Available ondansetron 4 mg disintegrat ing tablet DISSOLVE ONE TABLET ON THE TONGUE EVERY 8 HOURS NEEDED FOR NAUSEA AND VOMITING 02/19 completed Not Available Not Available Not Available finasteride 5 mg tablet TAKE 1 TABLET BY MOUTH DAILY. active Not Available Not Available No t Available oxycodone 5 mg tablet TAKE 1 OR 2 TABLETS BY MOUTH EVERY 4 HOURS NEEDED PAIN 02/19 completed Not Available Not Available Not Available tadalafil 20 mg tablet TAKE ONE TABLET BY MOUTH EVERY DAY 60 MINUTES BEFORE INTENDED ACTIVITY NEEDED FOR SEXUAL ACTIVITY active Not Available Not Available No t Available Cialis 5 mg tablet TAKE 1 TABLET DAILY FOR SEXUAL ACTIVITY active Not Available Not Available No t Available sildenafil (pulmonary hypertensio n) 20 mg tablet TAKE UP TO 5 TABLETS BY MOUTH MAXIMUM DAILY FOR 7 DAYS 01/11 completed Not Available Not Available Not Available Euflexxa 10 mg/mL (mw 2.4-3.6 million) intra-artic ular syringe Inject 2 mL by intra-art icular route for 21 days. 2024 active Not Available Not Available Not Avai lable diclofenac 1 % topical gel APPLY 4 G TOPICALLY 3 TIMES DAILY. 03/06 completed Not Available Not Available Not Available tranexamic acid 650 mg tablet 02/19 completed Not Available Not Available Not Available Anoro Ellipta 62.5 mcg-25 mcg/actuati on powder for inhalation INHALE 1 PUFF BY MOUTH EVERY DAY active Not Available Not Available No t Available Ozempic 0.25 mg or 0.5 mg (2 mg/3 mL) subcutaneou s pen injector INJECT 0.25 MG SUBCUTANE OUSLY EVERY 7 DAYS active Not Available Not Available No t Available Vitals Date Recorded Body height Body mass index (BMI) Body weight Provider Name and Address Organization Details Last Updated DateTime 02/26/2024 177.8 cm 30.1 kg/m2 [address] [place] [facility] 02/26/2024 11:41:16 Date Recorded Body height Body mass index (BMI) Body weight Provider Name and Address Organization Details Last Updated DateTime 03/06/2024 177.8 cm 30 kg/m2 62387.81 g Ivana Mccloud [facility] 03/06/2024 15:08:36 Date Recorded Body height Body mass index (BMI) Body weight Provider Name and Address Organization Details Last Updated DateTime 09/18/2024 177.8 cm 30.1 kg/m2 97700.4 g Lena Love [facility] 09/18/2024 14:06:24 Date Recorded Body height Body mass index (BMI) Body weight Provider Name and Address Organization Details Last Updated DateTime 09/25/2024 177.8 cm 30.3 kg/m2 79767.99 g Lena Love [facility] 09/25/2024 15:50:56 Social History None recorded. Functional Status Question Answer Note LastModified by Organizat ion Details LastModified Time How many times per week do you consume alcohol? Less than 1 time per week [email or web address] Information not available 02/17/2024 Do you use any illicit or recreational drugs? No Information not available 02/17/2024 Do you or have you ever used any other forms of tobacco or nicotine? No [email or web address] Information not available 02/17/2024 What is your level of alcohol consumption? Occasional [email or web address] Information not available 02/17/2024 Mental Status None recorded. Family History Nothing Reported. Medical History Condition Response Coronary Artery Disease N Gout N Hyperthyroidism N MRSA N Blood Transfusion N Emphysema N Depression N COPD Y Hypothyroidism N Pacemaker N Vascular Disease N Gastrointestinal Disease N Anxiety Disorder N Autoimmune disease N Arthritis Y Cancer Y Stroke N High Cholesterol Y Neurologic Disorder N Liver Disease N Organ Transplant N Rheumatoid Arthritis N Arrhythmia N Fibromyalgia N Kidney Disease N Allergies/Hayfever N Adverse Reaction to Anesthesia N Thyroid Problems N Anemia N Brain Injury N Heart Attack ([place]) N Osteopenia N Diabetes Y Bleeding Disorder N Seizures/Epilepsy N AIDS/HIV N Congestive Heart Failure (CHF) N Asthma N Amputation N Reflux/GERD Y Sleep Apnea N Hepatitis N Aneurysm N Heart Disease N Pulmonary Embolism N Hypertension Y Osteoporosis N Immunizations Vaccine Type Date Status Note Provider Nam e and Address Organization Details Recorded Time Influenza, high-dose, trivalent, PF 8 completed Not Available [facility] 11/03/2024 05:27:32 Influenza, split virus, trivalent, preservative 9 completed Not Available [facility] 11/03/2024 05:27:32 zoster live 3 completed Not Available [facility] 11/03/2024 05:27:32 Pneumococcal conjugate PCV 13 8 completed Not Available [facility] 11/03/2024 05:27:32 pneumococcal polysaccharide PPV23 9 completed Not Available [facility] 11/03/2024 05:27:32 Influenza, MDCK, quadrivalent, preservative 7 completed Not Available [facility] 11/03/2024 05:27:33 Influenza, split virus, trivalent, preservative 5 completed Not Available [facility] 11/03/2024 05:27:33 Tdap 2 completed Not Available [facility] 11/03/2024 05:27:33 Influenza, high-dose, trivalent, PF 9 completed Not Available [facility] 11/03/2024 05:27:33 Td (adult), 2 Lf tetanus toxoid, preservative free, adsorbed 2 completed Not Available [facility] 11/03/2024 05:27:33 COVID-19, mRNA, LNP-S, PF, 100 mcg/0.5mL dose or 50 mcg/0.25mL dose 2 completed Not Available [facility] 11/03/2024 05:27:33 COVID-19, mRNA, LNP-S, PF, 100 mcg/0.5mL dose or 50 mcg/0.25mL dose 1 completed Not Available [facility] 11/03/2024 05:27:33 COVID-19, mRNA, LNP-S, PF, 100 mcg/0.5mL dose or 50 mcg/0.25mL dose 1 completed Not Available [facility] [facility] 11/03/2024 05:27:33 COVID-19, mRNA, LNP-S, bivalent, PF, 50 mcg/0.5 mL or 25mcg/0.25 mL dose 2 completed Not Available [facility] 11/03/2024 05:27:33 COVID-19, mRNA, LNP-S, PF, 100 mcg/0.5mL dose or 50 mcg/0.25mL dose 1 completed Not Available [facility] 11/03/2024 05:27:33 COVID-19, mRNA, LNP-S, PF, 100 mcg/0.5mL dose or 50 mcg/0.25mL dose 1 completed Not Available [facility] 11/03/2024 05:27:34 Past Encounters Encounter ID Performer Location Encounter Start Date Encounter Closed Date Diagnosis/Indication Diagnosis SNOMED-CT Code Diagnosis ICD10 Code Diagnosis IMO Codes Diagnosis Note [id number] MD WHITNEY Turner [place] [address] [place] [address] 02/17/2024 08:48:59 02/17/2024 09:25:31 Pain of knee region 3074367966 M25.561 G89.29 [id number] Osteoarthr itis of right knee joint 5203808850 57103 M17.11 [id number] RAS GARCIA [address] [place] [address] 02/21/2024 14:31:16 02/21/2024 14:52:39 Osteoarthritis of knee 155179705 M17.9 Osteoarthr itis of right knee joint [id number] 54708 M17.11 1736138 Pain of knee region 1003 166542 M25.561 G89.29 [id number] RAS GARCIA [address] [place] [place] [id number] 02/26/2024 11:33:34 02/26/2024 11:43:05 Osteoarthritis of right knee joint 1879248461 27394 M17.11 1917970 Osteoarthr itis of knee 782468117 M17.9 Pain of knee region 1003 385890 M25.561 G89.29 [id number] RAS GARCIA [address] [place] [address] 03/06/2024 14:55:05 03/06/2024 15:41:02 Osteoarthritis of right knee joint 6453316542 81662 M17.11 [id number] Osteoarthr itis of knee 066182084 M17.9 Pain of knee region 1003 353953 M25.561 G89.29 [id number] RAS GARCIA [address] [place] [address] 09/11/2024 15:29:12 09/11/2024 16:04:27 Osteoarthritis of right knee joint 2318711215 03683 M17.11 [id number] MD WHITNEY Turner [address] [place] [address] 09/18/2024 14:00:49 09/18/2024 14:27:18 Osteoarthritis of right knee joint 2335996896 M17.11 [id number] RAS GARCIA d [address] [place] [address] 09/25/2024 15:43:53 09/25/2024 15:59:38 Osteoarthritis of right knee joint 2497889757 M17.11 [id number] Health Concerns Section Related Observation LastModified by Organization Detai ls LastModified Time None Recorded Concern Status LastModified by Organization Details LastModified Time None Recorded Advance Directives Directive None Recorded Payers Insurance Date Sequence Insurance Name Policy Number Policy Mcclure Covered Member ID Mcclure Member ID Guarantor Name 09/24/2024 1 [employer] (MEDICARE REPLACEMENT/ ADVANTAGE - PPO) [id number] Iker Duran [id number] Iker Duran Notes Date Note Type Note Provider Name and Address Organization Details Recorded Time 5 text/html ROS as noted in the HPI Patient returns to the office today for continued management of his right knee. He he reports he tolerated the first Euflexxa injection very well. Denies any complications. He wishes to proceed with second injection today. PRIOR:Patient presents to the office today for continued management of his right knee. He reports no interval change in his symptoms. Would like to proceed with Euflexxa injection series. PRIOR:Very pleasant 74-year-old gentleman here for second opinion regarding his right knee. He has been diagnosed with right knee osteoarthritis. He has been seen at [facility]. He has previously undergone Euflexxa injections which lasted about 6 months. The injections were performed in May 2023. He is interested in repeating those. He is not interested in any type of surgery. 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 Prior treatment for the right knee has included cortisone injections and physical therapy. He has a home exercise program. Pain is diffuse in the knee. He notes clicking and popping but no nayana locking. He denies radiating pain to the hip or ankle. SUJIT FERRIS PA-C [address], [place], [address], [place] [facility] 02/26/2024 11:52:16 5 text/html ROS as noted in the HPI Patient returns to the office today for continued management of his right knee. Reports he tolerated the two Euflexxa injections very well and reports he already feels some improvement. Denies any complications. He wishes to proceed with third injection today. PRIOR:Patient returns to the office today for continued management of his right knee. He he reports he tolerated the first Euflexxa injection very well. Denies any complications. He wishes to proceed with second injection today. PRIOR:Patient presents to the office today for continued management of his right knee. He reports no interval change in his symptoms. Would like to proceed with Euflexxa injection series. PRIOR:Very pleasant 74-year-old gentleman here for second opinion regarding his right knee. He has been diagnosed with right knee osteoarthritis. He has been seen at [facility]. He has previously undergone Euflexxa injections which lasted about 6 months. The injections were performed in May 2023. He is interested in repeating those. He is not interested in any type of surgery. 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 Prior treatment for the right knee has included cortisone injections and physical therapy. He has a home exercise program. Pain is diffuse in the knee. He notes clicking and popping but no nayana locking. He denies radiating pain to the hip or ankle. [address], [place], [address], [facility] 03/06/2024 15:40:30 5 text/html ROS as noted in the HPI 74-year-old male returns to the office today for continued management of his chronic right knee pain in the setting of advanced osteoarthritis. He reports minimal interval change in his symptoms. He has done very well with viscosupplementation injections in the past. He denies any changes to his medical history since we saw him last SUJIT FERRIS PA-C [address], [place], [address], [facility] 09/11/2024 16:01:00 5 text/html ROS as noted in the HPI He reports he is already feeling better after the first injection. No side effects. He is interested in proceeding with the second injection today. PRIOR ESTRELLA:74-year-old male returns to the office today for continued management of his chronic right knee pain in the setting of advanced osteoarthritis. He reports minimal interval change in his symptoms. He has done very well with viscosupplementation injections in the past. He denies any changes to his medical history since we saw him last Jose D Celestin MD [address], [place], [address], [facility] 09/18/2024 14:21:29 5 text/html ROS as noted in the HPI Patient returns to the office today for the third Euflexxa injection. He reports additional improvement. PRIOR:He reports he is already feeling better after the first injection. No side effects. He is interested in proceeding with the second injection today. PRIOR ESTRELLA:74-year-old male returns to the office today for continued management of his chronic right knee pain in the setting of advanced osteoarthritis. He reports minimal interval change in his symptoms. He has done very well with viscosupplementation injections in the past. He denies any changes to his medical history since we saw him last [address], [place], [address], [place] [facility] 09/25/2024 22:24:05
--- OUTSIDE RECORDS SUMMARY | 2024-11-10 10:42 | XMS_ITS | Clinical Summary ---
Author Organization [address] Address [address] [place] [address] Phone Care Team Providers Care Laboratory Coordinator Name Role Phone Veto Hazel MD Primary Care Provider [phone] Allergies Active Allergy Reactions Criticality Noted Date [...] lled type 2 diabetes mellitus (CMS/HCC V24, [facility] V28) INJECT 0.25 MG SUBCUTANEOUSLY EVERY 7 [...] Problem Noted Date Diagnosed Date Prostate CA ([facility] V24, [facility] V28) 3 Type 2 diabetes mellitus wit h peripheral vascular disease ([facility] V24, [facility] V28) 05/03/2021 Chronic obstructive pulmonar y disease ([facility] V24, [facility] V28) 12/25/2019 Allergic rhinitis due to pollen 12/19/2018 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 ([facility] V24, [facility] V28) 10/30/2018 Lumbar spinal stenosis [...] PM EDT Office Visit Walk[facility]In [facility] - [address] [address] Alejandro Lockhart PA Episode of transient neurologic symptoms (Primary Dx) 09/16/2024 2:15 PM EDT Office Visit [facility] - [address] [address] Salvador Ocasio NP Encounter for removal of sutures (Primary Dx) 08/13/2024 11:30 AM EDT Office Visit Adult Medicine [address] [address] Veto Hazel MD Diet-controlled type 2 diabetes mellitus ([facility] V24, [facility] V28) (Primary Dx); Hypercholesteremia; Encounter for long-term (current) use of medications; Essential hypertension, benign; Gastroesophageal reflux disease without esophagitis from Last 3 Months Immunizations Immunization Administration Dates Next Due Influenza Quadravalent, MDCK [...] no polyps. UPPER GASTROINTESTINAL ENDOSCOPY 2005 PROCEDURE: [place] UPPER GI ENDOSCOPY PERFORMED; COMMENT: grade B reflux esophagitis. UPPER GASTROINTESTINAL ENDOSCOPY 06/04/2018 PROCEDURE: [place] UPPER GI ENDOSCOPY PERFORMED; COMMENT: normal on [...] Comments Heart attack Brother x 1 FATAL NH Breast cancer Father unilateral; di abetes, HTN, [...] care for your loved ones. For example, childhood teacher or elderly care for an older adult? [...] Date Recorded What is your living situation? Unrecognized valu e 04/28/2024 Sex and Gender Information Value Date [...] 11:30 AM EST Office Visit Adult Medicine [address] [phone] Veto Hazel MD [address] [place] [address] Health Maintenance Due Date Last Done Comments RSV Immunization Adult Patients (1 - Risk 60-74 years 1-dose series) 2012 Medicare Annual Wellness Visit 2022 Diabetes: Annual Foot Exam 05/03/2022 05/03/2021 Diabetes: Annual Retina Eye Exam 09/24/2024 09/25/2023 COVID-19 Vaccine (8 - Moderna risk season) [...] AM EDT Diet-controlled type 2 diabetes mellitus ([facility] V24, [facility] V28) LIPID PANEL WITH REFLEX TO DIRECT LDL Routine 08/13/2024 11:56 AM EDT Hypercholesteremia COMPREHENSIVE METABOLIC PANEL Routine 08/13/2024 11:56 AM EDT Diet-controlled type 2 diabetes mellitus ([facility] V24, [facility] V28) Encounter for long-term (current) use of medications Essential hypertension, benign MICROALBUMIN CREATININE URINE RATIO Routine 08/13/2024 11:56 AM EDT Diet-controlled type 2 diabetes mellitus ([facility] V24, [facility] V28) US ABDOMINAL AORTA REAL TIME SCREEN STUDY AAA Routine 03/05/2017 8:21 AM EST Encounter for screening for cardiovascular disorders from Last 3 Months or Most Recently Relevant to Health Maintenance Results * Lipid panel with reflex to direct LDL (08/13/2024 11:56 AM EDT) [facility] Signature Cholesterol 119 0 - 200 mg/dL LAB CHEMISTRY METHOD 08/13/2024 2:35 PM EDT [facility] Triglycerides 67 0 - 150 mg/dL LAB CHEMISTRY METHOD 08/13/2024 2:35 PM EDT [facility] HDL 46 >=40 mg/dL LAB CHEMISTRY METHOD 08/13/2024 2:35 PM EDT [facility] LDL Calculated 60 0 - 100 mg/dL LAB CHEMISTRY METHOD 08/13/2024 2:35 PM EDT [facility] VLDL Cholesterol Rogelio 13.4 mg/dL LAB CHEMISTRY METHOD 08/13/2024 2:35 PM EDT [facility] Non HDL Chol. (LDL+VLDL) 73 <145 mg/dL LAB CHEMISTRY METHOD 08/13/2024 2:35 PM EDT [facility] Chol/HDL Ratio 2.6 0.0 - 4.4 LAB CHEMISTRY METHOD 08/13/2024 2:35 PM EDT [facility] Blood Venous blood specimen / Unknown Venipuncture / Unknown 08/13/2024 11:56 AM EDT 08/13/2024 11:56 AM EDT us Veto Hazel MD LAB BLOOD ORDERABLES Final Resu lt [facility] [address] [place] [address], * Microalbumin creatinine urine ratio (08/13/2024 11:56 AM EDT) Creatinine, Urine 55.0 mg/dL LAB CHEMISTRY METHOD 08/13/2024 5:20 PM EDT [facility] Microalb, Ur 15.0 0.0 - 29.0 mg/L LAB CHEMISTRY METHOD 08/13/2024 5:20 PM EDT [facility] Microalb/Creat Ratio 27 <30 mg/g creat LAB CHEMISTRY METHOD 08/13/2024 5:20 PM EDT [facility] Urine Urine specimen obtained by clean catch procedure / Unknown Non-blood Collection / Unknown 08/13/2024 11:56 AM EDT 08/13/2024 11:56 AM EDT us Veto Hazel MD LAB URINE ORDERABLES Final Resu lt Performing Organization Address [facility] Co de Phone Number [facility] [address] [place] [address], [place] [phone] * Hemoglobin A1c (08/13/2024 11:56 AM EDT) Pathologist [facility] Hemoglobin A1C 5.1 <6.5 % LAB CHEMISTRY METHOD 08/13/2024 8:41 PM EDT [facility] Mean Bld Glu Estim. 100 mg/dL LAB CHEMISTRY METHOD 08/13/2024 8:41 PM EDT [facility] Blood Venous blood specimen / Unknown Venipuncture / Unknown 08/13/2024 11:56 AM EDT 08/13/2024 11:56 AM EDT us Veto Hazel MD LAB BLOOD ORDERABLES Final Resu lt Performing Organization Address [facility] de Phone Number [facility] [address] [place] [address], [place] [phone] * (ABNORMAL) Comprehensive metabolic panel (08/13/2024 11:56 AM EDT) [facility] Sodium 142 133 - 145 mmol/L LAB CHEMISTRY METHOD 08/13/2024 3:07 PM EDT [facility] Potassium 4.1 3.5 - 5.5 mmol/L LAB CHEMISTRY METHOD 08/13/2024 3:07 PM EDT [facility] Chloride 113(H) 96 - 110 mmol/L LAB CHEMISTRY METHOD 08/13/2024 3:07 PM EDT [facility] CO2 21 21 - 32 mmol/L LAB CHEMISTRY METHOD [facility] Anion Gap 8 3 - 11 LAB CHEMISTRY METHOD 08/13/2024 3:07 PM [facility] Glucose 103(H) 70 - 100 mg/dL LAB CHEMISTRY METHOD 08/13/2024 3:07 PM [facility] BUN 24 5 - 25 mg/dL LAB CHEMISTRY METHOD 08/13/2024 3:07 PM [facility] Creatinine 1.15 0.70 - 1.30 mg/dL LAB CHEMISTRY METHOD 08/13/2024 3:07 PM [facility] eGFR 68 >=60 mL/min/1. 73m2 LAB CHEMISTRY METHOD 08/13/2024 3:07 PM [facility] Comment:Calculation based on the Chronic Kidney Disease Epidemiology Collaboration (CKD-EPI) equation refit without adjustment for race. BUN/Creatinine Ratio 20.9 LAB CHEMISTRY METHOD 08/13/2024 3:07 PM [facility] Calcium 8.9 8.5 - 10.5 mg/dL LAB CHEMISTRY METHOD 08/13/2024 3:07 PM [facility] AST (SGOT) 15 10 - 42 unit/L LAB CHEMISTRY METHOD 08/13/2024 3:07 PM [facility] ALT (SGPT) 24 10 - 60 unit/L LAB CHEMISTRY METHOD 08/13/2024 3:07 PM [facility] Alkaline Phosphatase 102 42 - 121 unit/L LAB CHEMISTRY METHOD 08/13/2024 3:07 PM [facility] Total Protein 7.0 6.0 - 8.0 g/dL LAB CHEMISTRY METHOD 08/13/2024 3:07 PM [facility] Albumin 3.8 3.2 - 5.0 g/dL LAB CHEMISTRY METHOD 08/13/2024 3:07 PM [facility] Total Bilirubin 0.7 0.0 - 1.4 mg/dL LAB CHEMISTRY METHOD 08/13/2024 3:07 PM EDT [facility] Blood Venous blood specimen / Unknown Venipuncture / Unknown 08/13/2024 11:56 AM EDT 08/13/2024 11:56 AM EDT Veto Hazel MD LAB BLOOD ORDERABLES Final Resu lt [facility]) [facility] [address] [place] [address], * [place] ABDOMINAL AORTA REAL TIME SCREEN [...] Maintenance Insurance [employer] MEDICARE ADVANTAGE Care Teams Laboratory Coordinator Relationship Specialty Start Date End Date Veto Hazel MD [address] [place] [phone] PCP - General Internal Medicine 12/31/23
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
--- OUTSIDE RECORDS SUMMARY | 2024-11-10 10:42 | XMS_ITS | Clinical Summary ---
Author Organization [facility] Address [address] [address] Phone Care Team Providers Care Plywood Layup Line Core Layer Name Role Phone Veto Hazel MD Primary Care Provider + Jayden Horta MD, MPH Unavailable [phone] Derek Torres MD Unavailable [phone] Bossman Leon MD Unavailable [phone] Allergies Active Allergy Reactions Criticality Noted Date [...] REPLACEMENT [employer]ET[employer] PPO MEDICARE REPLACEMENT Care Teams Plywood Layup Line Core Layer Relationship Specialty Start Date End Date Veto Hazel MD [address] [place] [address] PCP - General Internal Medicine 02/21/23 Jayden Horta MD, MPH [address] [place] [address], [facility] [place] [place] [address] [email or web address] Oncology 02/22/23 Derek Torres MD [address] [place] [id number] [email or web address] 02/22/23 Bossman Leon MD [address] [place] [address] [email or web address] Medical Oncology 02/22/23 Additional Source Comments The information contained in this document represents components of the legal health record. It is not the complete legal health record.[facility]
--- OUTSIDE RECORDS SUMMARY | 2024-11-10 10:42 | XMS_ITS | Clinical Summary ---
Author Organization [facility] Address [address] [place] [address] Care Team Providers Care [employer] Business Analyst Name Role Phone Ilir PEPPER MD, Veto Sierra Primary Care Provider [phone] Allergies Active Allergy Reactions Criticality Noted Date [...] this topic Insurance AET[employer] MCR Care Teams [employer] Business Analyst Relationship Specialty Start Date End Date Veto Hazel III, MD PCP - General Internal Medicine 05/29/23
== END 2024-11-10 09:51 | disposition home or self-care (01) ==
LOC: HO.NEURO 09:50
PROVIDERS: PCP Internal Medicine; Visit Provider Psychiatry & Neurology Neurology
DX: G57.32 Lesion of lateral popliteal nerve, left lower limb (principal)
CPT/HCPCS: 95885; 95911

== ENCOUNTER → 2024-11-10 10:09 | Outpatient (BNV) | payer MEDICARE, SELFPAY | PROVIDERS: PCP Internal Medicine; Visit Provider Psychiatry & Neurology Neurology | DX: G62.89 Other specified polyneuropathies (principal) | CPT/HCPCS: 95886; 95911 ==

== ENCOUNTER 2024-11-18 11:29 | Outpatient (REF) | payer MEDICARE, SELFPAY ==
[2024-11-18 13:15] LABS: Prostate Specific Antigen 3.14 ng/mL (<0.05-4.0)
== END 2024-11-18 11:30 | disposition home or self-care (01) ==
LOC: HO.LAB 11:29
PROVIDERS: PCP Internal Medicine; Visit Provider Urology
DX: C61 Malignant neoplasm of prostate (principal); Z12.5 Encounter for screening for malignant neoplasm of prostate
CPT/HCPCS: 36415; 84153

== ENCOUNTER 2024-11-25 09:16 | Outpatient (AMB) | payer MEDICARE, SELFPAY ==
--- NOTE | 2024-11-25 09:19 | MHC.OFFVIS ---
Intake Visit Reasons: SOONER 6 WEEK APPT Allergies No Known Allergies Allergy (Verified 05/29/24 11:05) HPI Comments Details: This a 74-year-old man with a history of well-controlled hypertension, chronic GERD, hyperlipidemia and borderline diabetes who has concerns about his memory.? In the last 7-10 years, he occasionally walks into a room and forgets what he went there for. He?will sometimes misplace things, but ultimately finds them. On the other hand, he recently took apart his Jaguar engine and fixed it.? He has had very brief momentary lapse of awareness of spatial orientation while driving, not being sure where he was momentarily before he reorients himself again.? 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 His girlfriend sometimes says that he has mood swings, especially? when he travels.? He reports a family history of dementia in his mother and 5 of her siblings in their 70s.? His mother lived until 83 and had advanced dementia at that time of her . He has some sleep maintenance issues for which he takes a edible cannabis gummy.Oct 29 lost movement of left ankle and it was numb followed by pain for 2 hrs after siiting in a [employer]ynn chair for 45 minutes. Happened again after a flight from [place] last night. 07/17/2024 MRI of the brain shows minor scattered white matter hyperintense changes consistent with microvascular disease. Large retention cyst in the right maxillary sinus 07/08/2024 labs unremarkable except for elevated PSA of 4.94 08/07/2024 EEG: The awake, drowsy and light sleep EEG is within normal limits 08/07/2024 Cognitive neurological findings:??MMSE 28/30, MoCA 19/30 with MIS 07/26.? Scheduled for 11/11/24 for LP for AD panel. [facility] Medical History (Updated 11/25/24 @ 09:37 by Todd Weiner MD) HLD (hyperlipidemia) Borderline diabetes mellitus MCI (mild cognitive impairment) History of retained foreign body fully removed Glaucoma Iron (Fe) deficiency anemia GERD (gastroesophageal reflux disease) Hypercholesteremia HTN (hypertension) Hemorrhoids Incomplete emptying of bladder BPH (benign prostatic hyperplasia) Erectile dysfunction Surgical History History of colonoscopy Family History (Updated 08/18/24 @ 19:24 by Dawna Orozco MA) Mother Dementia Social History (Updated 08/18/24 @ 19:24 by Dawna Orozco MA) Alcohol intake: never Patient Tobacco Use Status: Never used Tobacco Review of Systems Const Details: Sleep:? Difficulty getting to sleepdenies.? Difficulty maintaining sleepadmits.? Urge to move legsdenies.? Teeth grindingdenies.? Shouting or Kicking during sleepdenies.? Abnormal behavior during sleepdenies.? Excessive sleepdenies.? Snoringdenies.? Daytime sleepinessdenies. ???General/Constitutional:? Change in appetitedenies.? Chillsdenies.? Fatiguedenies.? Feverdenies.? Weight gaindenies.? Weight lossdenies. ???Ophthalmologic:? Blurred visiondenies.? Diminished visual acuitydenies. ???ENT:? Stuffinessdenies.? Decreased hearingdenies.? Dry mouthdenies.? Ear paindenies.? Nosebleeddenies.? Ringing in the earsdenies.? Sinus paindenies.? Sore throatdenies.? Swollen glandsdenies. ???Endocrine:? Cold intolerancedenies.? Excessive thirstdenies.? Frequent urinationdenies.? Heat intolerancedenies. ???Respiratory:? Shortness of breathdenies.? Chest paindenies.? Coughdenies. ???Breast:? Breast lumpdenies.? Nipple dischargedenies. ???Cardiovascular:? Chest pain at restdenies.? Chest pain with exertiondenies.? Claudicationdenies.? Dizzinessdenies.? Fluid accumulation in the legsdenies.? Irregular heartbeatdenies.? Palpitationsdenies. ???Gastrointestinal:? Abdominal paindenies.? Constipationdenies.? Diarrheadenies.? Difficulty swallowingdenies.? Heartburnadmits.? Nauseadenies.? Rectal bleedingdenies. ???Hematology:? Easy bruisingdenies.? Prolonged bleedingdenies. ???Genitourinary:? Frequent urinationdenies.? Urgencydenies.? Incontinencedenies.? Erectile Dysfunctiondenies. ???Musculoskeletal:? Neck painadmits.? Back paindenies.? Muscle achesadmits.? Painful jointsadmits.? Sciaticadenies.? Weaknessdenies. ???Podiatric:? Difficulty walkingdenies.? Foot numbnessdenies. ???Neurologic:? Difficulty swallowingdenies.? Balance difficultydenies.? Coordinationnormal.? Difficulty speakingdenies.? Dizzinessdenies.? Faintingdenies.? Gait abnormalitydenies.? Headachedenies.? Loss of strengthdenies.? Loss of use of extremitydenies.? Low back paindenies.? Memory lossadmits.? Seizuresdenies.? Ticsdenies.? Tingling/Numbnessdenies.? Transient loss of visiondenies.? Tremordenies. ???Psychiatric:? Anxietydenies.? Auditory/visual hallucinationsdenies.? Delusionsdenies.? Depressed mooddenies.? Stressorsdenies.? Substance abusedenies.? Suicidal thoughtsdenies. Physical Exam Neuro Other: Neurological: Abnormal neurological findings:??left foot dorsiflexion and evertor weakness 4/5. Absent AJs. ?Mental Status:??alert and oriented X 3,?Normal attention, orientation, memory and affect.?Cranial Nerves:??Pupils are equal, round and reactive to light. Fundoscopy shows normal disc bilaterally. External occular muscles are intact. Visual ceja are full, no ptosis. Face is symmetrical, no facial weakness or droop. Facial sensations are normal. Tongue protrudes in midline. Palate elevates symmetrically. Shoulder shrugging is normal..?Motor Examination:??Normal muscle tone, bulk and strength,?No atrophy or fasciculations,?No drift of the extended upper extremities,?Deep tendon reflexes are 2+ except absent AJs.?,?Plantars are flexor?.?Motor Strength:?Proximal Muscles (out of 5):5Distal Muscles (out of 5):5Neck Flexors (out of 5):5Neck Extensors (out of 5):5Deltoid (out of 5):5Biceps (out of 5):5Triceps (out of 5):5Serratus Anterior (out of 5):5Wrist Extensors (out of 5):5APB (out of 5):5Finger Spread (out of 5):5Ileopsoas (out of 5):5Quadriceps (out of 5):5Hamstrings (out of 5):5Tibialis Anterior (out of 5):5Peronei (out of 5):5. 4/5 on leftEDB (out of 5):5Gastrocnemius (out of 5):5Straight Leg Raising:??90 degrees.?Sensory Exam:??Normal light touch, temperature, pinprick, vibration and joint-position sensations?,?Rhomberg sign is absent.?Coordination:??no ataxia,?no titubation,?xxnopj-oa-yqqs, haxv-hwwi-nbgy test and rapid alternating movements were normal.?Gait Exam:??Within normal limits.?Cerebellar Signs:??Hcpgqa-hj-xlwh and dnvi-mt-itdw is normal,?no dysdiadochokinesia?.?Extrapyramidal System:??No tremor, rigidity with normal facial expressions,?No bradykinesia, no bradyphrenia. Normal arm swing and posture. No propulsion or retropulsion.?Speech:??Normal,?no dysphasia or dysarthria..? Mini Mental Status Exam: Level of Consciousness:??Alert.?Orientation:??Knows correct year, month, date, day and season,?Knows correct city, county and state. Knows correct location and floor.?Registration:??Able to register 3 objects.?Attention:??Serial 7's performed accurately.?Recall:??Able to recall 3 out of 3 objects.?Language:??Normal spontaneous speech, fluency, repetition,naming, comprehension, reading and writing.?Total Score:??30/30.? General Examination: GENERAL APPEARANCE:??normal,?in no acute distress.?HEAD:??normocephalic,?atraumatic.?EYES:??sclera non-icteric,?conjunctiva clear.?EARS:??auditory canal clear,?tympanic membrane intact, clear.?NOSE:??no lesions.?ORAL CAVITY:??gums normal,?mucosa moist,?no lesions.?THROAT:??clear.?NECK/THYROID:??no cervical lymphadenopathy,?thyroid normal,?neck supple, full range of motion,?no carotid bruit.?SKIN:??no rashes,?no significant birthmarks.?HEART:??S1, S2 normal,?no murmurs.?LUNGS:??clear anteriorly and posteriorly.?CHEST:??no gross rib deformity,?clear to auscultation.?BACK:??normal exam of spine.?EXTREMITIES:??no edema.?PERIPHERAL PULSES:??normal.?PSYCH:??alert, oriented,?cognitive function intact,?cooperative with exam.? 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 EMG of the left L4-S1 innervated muscles consistent with chronic distal neuropathic changes. 11/11/24 CSF was [place] at [facility] but collected in the wrong tube so the tests for beta amyloid could not be run. Labs including TSH, B12 , folate were normal. 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 EMG of the left L4-S1 innervated muscles consistent with chronic distal neuropathic changes. Code(s): G62.9 - Polyneuropathy, unspecified Category: Medical Plan Instead of repeating the lumbar puncture again, I will try and get approval for an amyloid PET scan of the brain instead. He will also need further workup for his diffuse neuropathy Orders: Orders PET Brain beta amyloid 3 Weeks G31.84 - Mild cognitive impairment of uncertain or unknown etiology Coding Level of Care Code Est Pt Level 4 (10223) Diagnoses MCI (mild cognitive impairment) G31.84 Peripheral neuropathy G62.9
--- OUTSIDE RECORDS SUMMARY | 2024-11-25 10:22 | XMS_ITS | Clinical Summary ---
Author Organization [facility] Address [address] [place] [phone] Care Team Providers Care Strategic Accounts Manager Name Role Phone Pcp, Monika MD Primary [...] complete this topic Insurance [employer] Care Teams Strategic Accounts Manager Relationship Specialty Start Date End Date Monika Sheridan MD [address] [place] [id number] PCP - General Internal Medicine 01/10/18
--- OUTSIDE RECORDS SUMMARY | 2024-11-25 10:22 | XMS_ITS | Encounter Summary ---
Author Organization [facility] Address [address] [place] [address] Phone Care Team Providers Care Bobbin Washer Name Role Phone Veto Hazel MD Primary Care Provider + Jayden Horta MD, MPH Unavailable [phone] Derek Torres MD Unavailable [phone] Bossman Leon MD Unavailable [phone] Encounter Details Date Type Department Care Team (Late st Contact Info) Description 03/28/2023 Procedure Pass [facility] [place], MRI [address] [address] Social History Tobacco Use Types [...] on filedocumented in this encounter Care Teams Bobbin Washer Relationship Specialty Start Date End Date Veto Hazel MD [address] [place] [phone] PCP - General Internal Medicine 02/21/23 Jayden Horta MD, MPH [address] [place] [address], ASB1- [address] [place] [address] [email or web address] Radiation Oncology 02/22/23 Derek Torres MD [address] [place] [id number] [email or web address] Urology 02/22/23 Bossman Leon MD [address] [place] [address] [email or web address] Medical Oncology 02/22/23 documented as of this encounter Additional Source Comments The information contained in this document represents components of the legal health record. It is not the complete legal health record.[facility]
--- OUTSIDE RECORDS SUMMARY | 2024-11-25 10:22 | XMS_ITS ---
Author Organization [facility] [address] [place] [address] [address] [place] [address] Phone Care Team Providers Care Warehouse Clerk Name Role Phone Veto Hazel MD Primary Care Provider [phone] Active Problems Problem Noted Date Diagnosed Date Prostate CA ([facility] V24, [facility] V28) 3 Type 2 diabetes mellitus wit h peripheral vascular disease ([facility] V24, [facility] V28) 05/03/2021 Chronic obstructive pulmonar y disease ([facility] V24, [facility] V28) 12/25/2019 Allergic rhinitis due to pollen 12/19/2018 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 ([facility] V24, [facility] V28) 10/30/2018 Lumbar spinal stenosis [...]
--- OUTSIDE RECORDS SUMMARY | 2024-11-25 10:22 | XMS_ITS | Clinical Summary ---
Author Organization [address] Address [address] [place] [phone] Phone Care Team Providers Care Program Arranger Name Role Phone Veto Hazel MD Primary Care Provider [phone] Allergies Active Allergy Reactions Criticality Noted Date Comments Naproxen 12/25/2019 Gi bleed Medications finasteride (PROSCAR) 5 mg tablet Take 1 tablet (5 mg total) by mouth 1 (one) time each day. Active minoxidiL (LONITEN) 2.5 mg tablet Take 2 tablets (5 mg total) by mouth 1 (one) time each day. 3 Active tadalafiL (CIALIS) 5 mg tablet TAKE 1 TABLET BY MOUTH DAILY FOR SEXUAL ACTIVITY FOR 90 DAYS 4 Active Anoro Ellipta 62.5-25 mcg/actuation inhaler TAKE 1 PUFF BY MOUTH EVERY DAY 180 each 1 5 Active albuterol HFA (ProAir HFA) 90 mcg/actuation inhaler Inhale 2 puffs by mouth every 4 (four) hours if needed for wheezing or shortness of breath. 8.5 g 5 026 Active methocarbamoL (ROBAXIN) 500 mg tablet Take 1 tablet (500 mg total) by mouth 4 (four) times a day if needed for muscle spasms. 40 tablet 5 Active Ozempic 0.25 mg or 0.5 mg (2 mg/3 mL) injection penIndications :Diet-controll ed type 2 diabetes mellitus (CMS/HCC V24, [facility] V28) INJECT 0.25 MG SUBCUTANEOUSLY EVERY 7 DAYS 9 mL 1 5 Active famotidine (PEPCID) 20 mg tablet Take 1 tablet (20 mg total) by mouth 2 (two) times a day. 60 tablet 5 5 Active lisinopriL (PRINIVIL,ZEST RIL) 10 mg tablet TAKE 1 TABLET BY MOUTH EVERY DAY 90 tablet 1 5 Active simvastatin (ZOCOR) 20 mg tablet TAKE 1 TABLET BY MOUTH EVERYDAY AT BEDTIME 90 tablet 1 5 Active Active Problems Problem Noted Date Diagnosed Date Prostate CA ([facility] V24, [facility] V28) 3 Type 2 diabetes mellitus wit h peripheral vascular disease ([facility] V24, [facility] V28) 05/03/2021 Chronic obstructive pulmonar y disease ([facility] V24, [facility] V28) 12/25/2019 Allergic rhinitis due to pollen 12/19/2018 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 ([facility] V24, [facility] V28) 10/30/2018 Lumbar spinal stenosis 12/04/2017 Lipoma [...] Overview (10/29/2023): EGD, duodenal biopsies, colonoscopy, performed 10.30.06. Minimal reflux esophagitis. Small polyps in the lower rectum referred to surgery for removal. Duodenal biopsies revealed giardiasis and treatment was given. rectal polyp pathology: Fibroepithelial polyps consistent with internal hemorrhoids. No colon cancer screening necessary until 2016. Essential hypertension, benign 09/03/2005 Encounters Date Type Department Care Team Description 10/29/2024 4:30 PM EDT Office Visit Walk[facility] Clinic - [address] [phone] Alejandro Lockhart PA Episode of transient neurologic symptoms (Primary Dx) 09/16/2024 2:15 PM EDT Office Visit Walk-In Clinic - [address] [phone] Salvador Ocasio, DARRYL Encounter for removal of sutures (Primary Dx) from Last 3 Months Immunizations Immunization Administration [...] no polyps. UPPER GASTROINTESTINAL ENDOSCOPY 2005 PROCEDURE: MD UPPER GI ENDOSCOPY PERFORMED; COMMENT: grade B reflux esophagitis. UPPER GASTROINTESTINAL ENDOSCOPY 06/04/2018 PROCEDURE: MD UPPER GI ENDOSCOPY PERFORMED; COMMENT: normal on [...] Comments Heart attack Brother x 1 FATAL [place] Breast cancer Father unilateral; di abetes, HTN, [...] your loved ones. For example, child care provider or elderly care for an older adult? [...] 11:30 AM EST Office Visit Adult Medicine [facility] [address] [place] [phone] Veto Hazel MD [address] [place] [phone] Health Maintenance Due Date Last Done Comments RSV Immunization Adult Patients (1 - Risk 50-74 years 1-dose series) 01/19/2002 Medicare Annual Wellness Visit 2022 Diabetes: Annual [...] Completed 01/05/2020, 0810/2019, 12/10/2018, Additional history exists Depression Screening Completed [...] Procedure Name Priority Date/Time Associated Diagnosis Comments MICROALBUMIN CREATININE URINE RATIO Routine 08/13/2024 11:56 AM EDT Diet-controlled type 2 diabetes mellitus ([facility] V24, [facility] V28) COMPREHENSIVE METABOLIC PANEL Routine 08/13/2024 11:56 AM EDT Diet-controlled type 2 diabetes mellitus ([facility] V24, [facility] V28) Encounter for long-term (current) use of medications Essential hypertension, benign HEMOGLOBIN A1C Routine 08/13/2024 11:56 AM EDT Diet-controlled type 2 diabetes mellitus ([facility] V24, [facility] V28) LIPID PANEL WITH REFLEX TO DIRECT LDL Routine 08/13/2024 11:56 AM EDT Hypercholesteremia US ABDOMINAL AORTA REAL TIME SCREEN STUDY AAA Routine 03/05/2017 8:21 AM EST Encounter for screening for cardiovascular disorders from Last 3 Months or Most Recently Relevant to Health Maintenance Results * Lipid panel with reflex to direct LDL (08/13/2024 11:56 AM EDT) Cholesterol 119 0 - 200 mg/dL LAB CHEMISTRY METHOD 08/13/2024 2:35 PM EDT [facility] Triglycerides 67 0 - 150 mg/dL LAB CHEMISTRY METHOD 08/13/2024 2:35 PM EDT [facility] HDL 46 >=40 mg/dL LAB CHEMISTRY METHOD 08/13/2024 2:35 PM EDT [facility] LDL Calculated 60 0 - 100 mg/dL LAB CHEMISTRY METHOD 08/13/2024 2:35 PM EDT [facility] VLDL Cholesterol Rogelio 13.4 mg/dL LAB CHEMISTRY METHOD 08/13/2024 2:35 PM T [facility] Non HDL Chol. (LDL+VLDL) 73 <145 mg/dL LAB CHEMISTRY METHOD 08/13/2024 2:35 PM EDT [facility] Chol/HDL Ratio 2.6 0.0 - 4.4 LAB CHEMISTRY METHOD 08/13/2024 2:35 PM EDT [facility] Blood Venous blood specimen / Unknown Venipuncture / Unknown 08/13/2024 11:56 AM EDT 08/13/2024 11:56 AM EDT us Veto Hazel MD LAB BLOOD ORDERABLES Final Resu lt Performing Organization Address City/[facility]/ZIP Co de Phone Number [facility] [address] [place] [address], [place] [phone] * Microalbumin creatinine urine ratio (08/13/2024 11:56 AM EDT) Creatinine, Urine 55.0 mg/dL LAB CHEMISTRY METHOD 08/13/2024 5:20 PM EDT [facility] Microalb, Ur 15.0 0.0 - 29.0 mg/L LAB CHEMISTRY METHOD 08/13/2024 5:20 PM EDT [facility] Microalb/Creat Ratio 27 <30 mg/g creat LAB CHEMISTRY METHOD 08/13/2024 5:20 PM EDT [facility] Urine Urine specimen obtained by clean catch procedure / Unknown Non-blood Collection / Unknown 08/13/2024 11:56 AM EDT 08/13/2024 11:56 AM EDT us Veto Hazel MD LAB URINE ORDERABLES Final Resu lt Performing Organization Address City/[facility]/ZIP Co de Phone Number [facility] [address] [place] [address], [place] [phone] * Hemoglobin A1c (08/13/2024 11:56 AM EDT) Hemoglobin A1C 5.1 <6.5 % LAB CHEMISTRY METHOD 08/13/2024 8:41 PM EDT [facility] Mean Bld Glu Estim. 100 mg/dL LAB CHEMISTRY METHOD 08/13/2024 8:41 PM [facility] Blood Venous blood specimen / Unknown Venipuncture / Unknown 08/13/2024 11:56 AM EDT 08/13/2024 11:56 AM EDT us Veto Hazel MD LAB BLOOD ORDERABLES Final Resu lt [facility] [address] [place] [address], [place] [phone] * (ABNORMAL) Comprehensive metabolic panel (08/13/2024 11:56 AM EDT) Sodium 142 133 - 145 mmol/L LAB CHEMISTRY METHOD 08/13/2024 3:07 PM [facility] Potassium 4.1 3.5 - 5.5 mmol/L LAB CHEMISTRY METHOD 08/13/2024 3:07 PM [facility] Chloride 113(H) 96 - 110 mmol/L LAB CHEMISTRY METHOD 08/13/2024 3:07 PM [facility] CO2 21 21 - 32 mmol/L LAB CHEMISTRY METHOD 08/13/2024 3:07 PM [facility] Anion Gap 8 3 - 11 LAB CHEMISTRY METHOD 08/13/2024 3:07 PM [facility] Glucose 103(H) 70 - 100 mg/dL LAB CHEMISTRY METHOD 08/13/2024 3:07 PM [facility] BUN 24 5 - 25 mg/dL LAB CHEMISTRY METHOD 08/13/2024 3:07 PM [facility] Creatinine 1.15 0.70 - 1.30 mg/dL LAB CHEMISTRY METHOD 08/13/2024 3:07 PM [facility] eGFR 68 >=60 mL/min/1. 73m2 LAB CHEMISTRY METHOD 08/13/2024 3:07 PM [facility] Comment:Calculation based on the Chronic Kidney Disease Epidemiology Collaboration (CKD-EPI) equation refit without adjustment for race. BUN/Creatinine Ratio 20.9 LAB CHEMISTRY METHOD 08/13/2024 3:07 PM EDT [facility] Calcium 8.9 8.5 - 10.5 mg/dL LAB CHEMISTRY METHOD 08/13/2024 3:07 PM [facility] AST (SGOT) 15 10 - 42 unit/L LAB CHEMISTRY METHOD 08/13/2024 3:07 PM [facility] ALT (SGPT) 24 10 - 60 unit/L LAB CHEMISTRY METHOD 08/13/2024 3:07 PM [facility] Alkaline Phosphatase 102 42 - 121 unit/L LAB CHEMISTRY METHOD 08/13/2024 3:07 PM [facility] Total Protein 7.0 6.0 - 8.0 g/dL LAB CHEMISTRY METHOD 08/13/2024 3:07 PM [facility] Albumin 3.8 3.2 - 5.0 g/dL LAB CHEMISTRY METHOD 08/13/2024 3:07 PM [facility] Total Bilirubin 0.7 0.0 - 1.4 mg/dL LAB CHEMISTRY METHOD 08/13/2024 3:07 PM T [facility] Blood Venous blood specimen / Unknown Venipuncture / Unknown 08/13/2024 11:56 AM EDT 08/13/2024 11:56 AM EDT us Veto Hazel MD LAB BLOOD ORDERABLES Final Resu lt [facility] [address] [place] [address], * US ABDOMINAL AORTA REAL TIME SCREEN [...] visualized abdominal aortic aneurysm. us Brigido BUCKLEY [employer] US PROCEDURES Final Result from Last 3 Months or Most Recently Relevant to Health Maintenance Insurance [employer] MED[employer]ARE ADVANTAGE Care Teams Program Arranger Relationship Specialty Start Date End Date Veto Hazel MD [address] [place] [phone] PCP - General Internal Medicine 12/31/23
--- OUTSIDE RECORDS SUMMARY | 2024-11-25 10:23 | XMS_ITS | Clinical Summary ---
Author Organization [facility] Address [address] [place] [address] Care Team Providers Care Sash Sticker Name Role Phone Ilir PEPPER MD, Veto Sierra Primary Care Provider [phone] Allergies Active Allergy Reactions Criticality Noted Date [...] this topic Insurance [employer] MCR Care Teams Sash Sticker Relationship Specialty Start Date End Date Veto Hazel III, MD PCP - General Internal Medicine 05/29/23
--- OUTSIDE RECORDS SUMMARY | 2024-11-25 10:23 | XMS_ITS | Clinical Summary ---
Author Organization [facility] Address [address] [place] [address] Care Team Providers Care Strainer Cleaner Name Role Phone Vane Sales MD Primary Care Provider [phone] Allergies Active Allergy Reactions Criticality Noted Date [...] 0 01/11/2022 Active Diclofenac Sodium 1 % GELIndications:Adoption Coordinator chelsi bilateral low back pain with right-sided [...] age to complete this topic Care Teams Strainer Cleaner Relationship Specialty Start Date End Date Vane Sales MD [address] [place] [address] [address] [place] [address] PCP - General Family Medicine 01/11/22
--- OUTSIDE RECORDS SUMMARY | 2024-11-25 10:23 | XMS_ITS | Clinical Summary ---
Author Organization [facility] Address [address] [address] Phone Care Team Providers Care Title Processor Name Role Phone Veto Hazel MD Primary Care Provider + Jayden Horta MD, MPH Unavailable [phone] Derek Torres MD Unavailable [phone] Bossman Leon MD Unavailable [phone] Allergies Active Allergy Reactions Criticality Noted Date [...] REPLACEMENT [employer] PPO MEDICARE REPLACEMENT Care Teams Title Processor Relationship Specialty Start Date End Date Veto Hazel MD [address] [place] [id number] PCP - General Internal Medicine 02/21/23 Jayden Horta MD, MPH [address] [place] [address], [facility] [place] [address] [email or web address] Radiation Oncology 02/22/23 Derek Torres MD [address] [place] [id number] [email or web address] Urology 02/22/23 Bossman Leon MD [address] [place] [id number] [email or web address] Oncology 02/22/23 Additional Source Comments The information contained in this document represents components of the legal health record. It is not the complete legal health record.[facility]
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
== END 2024-11-25 09:36 | disposition home or self-care (01) ==
LOC: HO.HSM 09:17
PROVIDERS: PCP Internal Medicine; Visit Provider Psychiatry & Neurology Neurology
DX: G31.84 Mild cognitive impairment of uncertain or unknown etiology (principal); G62.9 Polyneuropathy, unspecified
CPT/HCPCS: 99214

== ENCOUNTER → 2024-11-25 09:16 | Outpatient (BNVA) | payer MEDICARE, SELFPAY | PROVIDERS: PCP Internal Medicine; Visit Provider Psychiatry & Neurology Neurology | DX: G31.84 Mild cognitive impairment of uncertain or unknown etiology (principal); G62.9 Polyneuropathy, unspecified | CPT/HCPCS: 99212 ==

== ENCOUNTER 2024-12-01 10:26 | Outpatient (AMB) | payer MEDICARE, SELFPAY ==
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
--- OUTSIDE RECORDS SUMMARY | 2024-12-01 12:27 | XMS_ITS | Data Portability ---
Author Organization [place] [facility] Jens Milner AONE [place] Address [address] [place] [address] Care Team Providers Care Body Mechanic Name Role Phone RAMSES FLAVIA Primary Care Provider FLAVIA PEARCE Referring Provider [phone] Assessment Encounter Date Assessment Date Assessment LastModified [...] another round. He already has authorization through [employer], but they were not able to get [...] another round. He already has authorization through [employer], but they were not able to get [...] 2.4-3.6 million) intra-kraig cular syringe 2024 025 [email or web address] Not available 08:15:38 Euflexxa 10 mg/mL (mw 2.4-3.6 million) intra-kraig cular syringe 2024 025 [email or web address] [id number], [address] [place], [address], 14:59:18 Euflexxa 10 mg/mL (mw 2.4-3.6 million) intra-kraig cular syringe 2024 025 [email or web address] [facility], [address] [place], [address], 16:35:29 Euflexxa 10 mg/mL (mw 2.4-3.6 million) intra-kraig cular syringe 2024 025 [email or web address] 2 [id number], [address] [place], [address], 16:17:34 Euflexxa 10 mg/mL (mw 2.4-3.6 million) intra-kraig cular syringe 2024 025 [email or web address] 2 [id number], [address] [place], [address], 11:52:44 Patient TargetsNo targets recorded. Patient Instructions Encounter Date Encounter Id Patient Instructions Last Modified By Organization Details Last Modified Time 09/18/2024 [id number] Patient Instruct ions Following Viscosupplementation Injections Dr. [...] call Dr. Celestin s office immediately at [phone]. Not available 09/18/2024 06:30:24 09/25/2024 [id number] Patient Instruct ions Following Viscosupplementation Injections Dr. [...] call Dr. Celestin s office immediately at [phone]. Not available 09/25/2024 15:52:18 Reason for Referral None Reported. Problems Name Problem SNOMED Code Status Onset Date Resolution Date Notes Provider Name and Address Organization Details Recorded Time Benign essential hypertens ion 7629622 Active 2005 Essential hypertens ion, benign Not Available [facility] 5 00:01:31 Gastro-es ophageal reflux disease with esophagit is 209983793 Active 2005 Gastro-es ophageal reflux disease with esophagit is - Overview: Formattin g of this note might be different from the original. Overview: Erosive esophagit is on EGD 2005. Not Available [facility] 5 00:01:31 Iron deficienc y anemia due to blood loss 766233609 Active 2005 Iron deficienc y anemia due [...] necessary until 2016. Not Available [facility] 5 00:01:31 Hyperchol esterolem ia 31198778 Active 2006 Hyperchol esteremia Not Available [facility] 5 00:01:32 Amblyopia 975991802 Active 2008 Amblyopia - Overview: Formattin g of this note might be different from the original. Overview: refractiv e os BVA Not Available [facility] 5 00:01:30 External hemorrhoi ds 96418966 Active 2010 External hemorrhoi ds Not Available [facility] 5 00:01:32 Glaucoma suspect 145694903 Active 2011 Glaucoma suspect Not Available [facility] 5 00:01:31 Nuclear sclerosis 686315596 Active 2011 Nuclear sclerosis Not Available [facility] 5 00:01:33 Erectile dysfuncti on 022611239 Active 2012 Erectile dysfuncti on Not Available [facility] 5 00:01:32 Nodule of lung 054563712 Active 2015 Pulmonary nodule - Overview: Formattin g of this note might be different from the original. Overview: CT of chest 12/06/15 shows a 0.8 cm right middle lobe nodule . Repeat 3-6 months suggested stability . Not Available [facility] 5 00:01:32 Low back pain 533423925 Active 2016 Lumbar pain with radiation down left leg Not Available [facility] 5 00:01:31 Pain of bilateral hands 79140694432 485530 Active 2016 Bilateral hand pain Not Available [facility] 5 00:01:32 Weak urinary stream due to benign prostatic hypertrop hy 79531492423 9100 Active 2016 Benign prostatic hyperplas ia with weak urinary stream Not Available [facility] 5 00:01:30 Lipoma of skin and subcutane ous tissue of neck 49687904 Active 2017 Lipoma of neck Not Available [facility] 5 00:01:33 Spinal stenosis of lumbar region 73021636 Active 2017 Lumbar spinal stenosis Not Available [facility] 5 00:01:30 Prediabet es 355742750 Active 2018 Prediabet es Not Available [facility] 5 00:01:31 Pain of knee region 4993116034 Active [address], [place], [address] , [place] [facility] 5 08:22:55 Osteoarth ritis of right knee joint 30553494099 9100 Active [address], [place], [address] , [place] [facility] 5 08:23:22 Osteoarth ritis of knee 251382606 Active [address], [place], [address] , [place] [facility] 5 15:39:05 Problem Notes None recorded. Procedures Surgical History Date Name Laterality Status Provider Name and Address Organization Details Recorded Time 5 Euflexxa Knee Inj completed [address], [place], [address], [place] [facility] 09/25/2024 22:22:29 5 Euflexxa Knee Inj completed MD [address], [place], [address], [place] [facility] 09/18/2024 14:20:16 5 Euflexxa Knee Inj completed [address], [place], [address], [place] [facility] 09/11/2024 15:57:27 5 Euflexxa Knee Inj completed SUJIT FERRIS PA-C [address], [place], [address], [place] [facility] 03/06/2024 15:40:02 5 Euflexxa Knee Inj completed SUJIT FERRIS PA-C [address], [place], [address], [place] [facility] 02/26/2024 11:51:57 5 Euflexxa Knee Inj completed SUJIT FERRIS PA-C [address], [place], [address], [place] [facility] 02/21/2024 14:54:04 Imaging Results None recorded. Procedure Notes None recorded. Medical Equipment None Reported. Allergies Allergen ID Allergen Name Allergen Category Reaction Reaction Severity Criticality Documentation Date Start Date Code Code System Note Provider Name and Address Organization Details Recorded Time 40923 naproxen medicatio n Not available Not available Not available 11/03/20242019 7258 RxNorm Gi bleed Not Available [facility] 01:21:31 Medications Name Sig Start Date Stop [...] Updated DateTime 02/26/2024 177.8 cm 30.1 kg/m2 [address]4224.[address] [place] [facility] 02/26/2024 11:41:16 Date Recorded Body height Body mass index (BMI) Body weight Provider Name and Address Organization Details Last Updated DateTime 03/06/2024 177.8 cm 30 kg/m2 57491.81 g Ivana Mccloud [facility] 03/06/2024 15:08:36 Date Recorded Body height Body mass index (BMI) Body weight Provider Name and Address Organization Details Last Updated DateTime 09/18/2024 177.8 cm 30.1 kg/m2 42851.4 g Lena Love [facility], [facility] 09/18/2024 14:06:24 Date Recorded Body height Body mass index (BMI) Body weight Provider Name and Address Organization Details Last Updated DateTime 09/25/2024 177.8 cm 30.3 kg/m2 30157.99 g Lena Love [facility], [facility] 09/25/2024 15:50:56 Social History None recorded. Functional Status Question Answer Note LastModified by Organizat ion Details LastModified Time How many times per week do you consume alcohol? Less than 1 time per week [email or web address] Information not available 02/17/2024 Do you use any illicit or recreational drugs? No [email or web address] Information not available 02/17/2024 Do you or have you ever used any other forms of tobacco or nicotine? No [email or web address] Information not available 02/17/2024 What is your level of alcohol consumption? Occasional [email or web address] Information not available 02/17/2024 Mental Status None recorded. Family History Nothing Reported. Medical History Condition Response Coronary Artery Disease N Gout N Hyperthyroidism N Blood Transfusion N MRSA N Emphysema N Depression N COPD Y Hypothyroidism N Pacemaker N Vascular Disease N Gastrointestinal Disease N Anxiety Disorder N Autoimmune disease N Arthritis Y Cancer Y Stroke N High Cholesterol Y Neurologic Disorder N Liver Disease N Organ Transplant N Arrhythmia N Rheumatoid Arthritis N Fibromyalgia N Kidney Disease N Allergies/Hayfever N Adverse Reaction to Anesthesia N Thyroid Problems N Anemia N Brain Injury N Heart Attack ([place]) N Osteopenia N Diabetes Y Bleeding Disorder N Seizures/Epilepsy N AIDS/HIV N Congestive Heart Failure (CHF) N Asthma N Amputation N Reflux/GERD Y Sleep Apnea N Hepatitis N Aneurysm N Heart Disease N Pulmonary Embolism N Hypertension Y Osteoporosis N Immunizations Vaccine Type Date Status Note Provider Nam e and Address Organization Details Recorded Time Influenza, high-dose, trivalent, PF 8 completed Not Available [facility] 11/03/2024 05:27:32 Influenza, split virus, trivalent, preservative 9 completed Not Available [facility] 11/03/2024 05:27:32 zoster live 3 completed Not Available [facility] 11/03/2024 05:27:32 Pneumococcal conjugate PCV 13 8 completed Not Available [facility] 11/03/2024 05:27:32 pneumococcal polysaccharide PPV23 9 completed Not Available [facility] 11/03/2024 05:27:32 Influenza, MDCK, quadrivalent, preservative 7 completed Not Available [facility] 11/03/2024 05:27:33 Influenza, split virus, trivalent, preservative 5 completed Not Available [facility] 11/03/2024 05:27:33 Tdap 2 completed Not Available [facility] 11/03/2024 05:27:33 Influenza, high-dose, trivalent, PF 9 completed Not Available [facility] 11/03/2024 05:27:33 Td (adult), 2 Lf tetanus toxoid, preservative free, adsorbed 2 completed Not Available [facility] 11/03/2024 05:27:33 COVID-19, mRNA, LNP-S, PF, 100 mcg/0.5mL dose or 50 mcg/0.25mL dose 2 completed Not Available [facility] 11/03/2024 05:27:33 COVID-19, mRNA, LNP-S, PF, 100 mcg/0.5mL dose or 50 mcg/0.25mL dose 1 completed Not Available [facility] 11/03/2024 05:27:33 COVID-19, mRNA, LNP-S, PF, 100 mcg/0.5mL dose or 50 mcg/0.25mL dose 1 completed Not Available [facility] 11/03/2024 05:27:33 COVID-19, mRNA, LNP-S, bivalent, PF, 50 mcg/0.5 mL or 25mcg/0.25 mL dose 2 completed Not Available [facility] 11/03/2024 05:27:33 COVID-19, mRNA, LNP-S, PF, 100 mcg/0.5mL dose or 50 mcg/0.25mL dose 1 completed Not Available [facility] 11/03/2024 05:27:33 COVID-19, mRNA, LNP-S, PF, 100 mcg/0.5mL dose or 50 mcg/0.25mL dose 1 completed Not Available [facility] 11/03/2024 05:27:34 Past Encounters Encounter ID Performer Location Encounter Start Date Encounter Closed Date Diagnosis/Indication Diagnosis SNOMED-CT Code Diagnosis ICD10 Code Diagnosis IMO Codes Diagnosis Note [id number] MD WHITNEY Turner [place] [address] [place] [address] 02/17/2024 08:48:59 02/17/2024 09:25:31 Pain of knee region 3272151838 M25.561 G89.29 95063665 Osteoarthr itis of right knee joint 5016758782 66092 M17.11 [id number] RAS GARCIA [address] [place] [address] 02/21/2024 14:31:16 02/21/2024 14:52:39 Osteoarthritis of knee 942135658 M17.9 Osteoarthr itis of right knee joint 0705691243 71240 M17.11 5653138 Pain of knee region 1003 609150 M25.561 G89.29 83879340 [id number] RAS GARCIA [address] [place] [address] 02/26/2024 11:33:34 02/26/2024 11:43:05 Osteoarthritis of right knee joint 0980786438 21964 M17.11 4906832 Osteoarthr itis of knee 792270339 M17.9 Pain of knee region 1003 049117 M25.561 G89.29 [id number] RAS GARCIA [address] [place] [address] 03/06/2024 14:55:05 03/06/2024 15:41:02 Osteoarthritis of right knee joint 4608249826 30822 M17.11 1535646 Osteoarthr itis of knee 594619238 M17.9 Pain of knee region 1003 249305 M25.561 G89.29 [id number] RAS [facility]ARCIA [address] [facility] [address] 09/11/2024 15:29:12 09/11/2024 16:04:27 Osteoarthritis of right knee joint 3810769112 34044 M17.11 [id number] MD WHITNEY Turner [address] [place] [address] 09/18/2024 14:00:49 09/18/2024 14:27:18 Osteoarthritis of right knee joint 7146245843 M17.11 5973387 [id number] RAS GARCIA d [address] [place] [address] 09/25/2024 15:43:53 09/25/2024 15:59:38 Osteoarthritis of right knee joint 0947103247 M17.11 2101127 Health Concerns Section Related Observation LastModified by Organization Detai ls LastModified Time None Recorded Concern Status LastModified by Organization Details LastModified Time None Recorded Advance Directives Directive None Recorded Payers Insurance Date Sequence Insurance Name Policy Number Policy Mcclure Covered Member ID Mcclure Member ID Guarantor Name 09/24/2024 1 [employer] (MEDICARE REPLACEMENT/ ADVANTAGE - PPO) [id number] Iker Duran [id number] Iker Duran Notes Date Note Type Note [...] knee osteoarthritis. He has been seen at [facility]. He has previously undergone Euflexxa injections which [...] SUJIT FERRIS PA-C [address], [place], [address], [place] [facility] 02/26/2024 11:52:16 5 text/html ROS as [...] knee osteoarthritis. He has been seen at [facility]. He has previously undergone Euflexxa injections which [...] hip or ankle. [address], [place], [address], [facility] 03/06/2024 15:40:30 5 text/html ROS as [...] SUJIT FERRIS PA-C [address], [place], [address], [facility] 09/11/2024 16:01:00 5 text/html ROS as [...] D Celestin MD [address], [place], [address], [facility] 09/18/2024 14:21:29 5 text/html ROS as [...] saw him last [address], [place], [address], [place] [facility] 09/25/2024 22:24:05
--- OUTSIDE RECORDS SUMMARY | 2024-12-01 12:27 | XMS_ITS | Clinical Summary ---
Author Organization [facility] Address [address] [place] [address] Care Team Providers Care Safe And Vault Installer Name Role Phone Vane Sales MD Primary Care Provider [phone] Allergies Active Allergy Reactions Criticality Noted Date [...] 0 01/11/2022 Active Diclofenac Sodium 1 % GELIndications:Jewel Hole Cornerer chelsi bilateral low back pain with right-sided [...] age to complete this topic Care Teams Safe And Vault Installer Relationship Specialty Start Date End Date Vane Sales MD [address] [place] [address] [address] [place] [address] PCP - General Family Medicine 01/11/22
--- OUTSIDE RECORDS SUMMARY | 2024-12-01 12:27 | XMS_ITS | Clinical Summary ---
Author Organization [facility] Address [address] [place] [address] Care Team Providers Care Coal Chemist Name Role Phone Ilir PEPPER MD, Veto Sierra Primary Care Provider [phone] Allergies Active Allergy Reactions Criticality Noted Date [...] this topic Insurance [employer] MCR Care Teams Coal Chemist Relationship Specialty Start Date End Date Veto Hazel III, MD PCP - General Internal Medicine 05/29/23
--- OUTSIDE RECORDS SUMMARY | 2024-12-01 12:27 | XMS_ITS | Encounter Summary ---
Author Organization [facility] Address [address] [facility] [address] [place] [address] Phone Care Team Providers Care Matrix Bath Operator Name Role Phone Veto Hazel MD Primary Care Provider + Jayden Horta MD, MPH Unavailable [phone] Derek Torres MD Unavailable [phone] Bossman Leon MD Unavailable [phone] Encounter Details Date Type Department Care Team (Late st Contact Info) Description 03/28/2023 Procedure [facility] [place] [facility] [place], MRI [address] [address] Social History Tobacco Use Types [...] on filedocumented in this encounter Care Teams Matrix Bath Operator Relationship Specialty Start Date End Date Veto Hazel MD [address] [place] [address] PCP - General Internal Medicine 02/21/23 Jayden Horta MD, MPH [address] [place] [address], [address] [place] [address] [email or web address] Radiation Oncology 02/22/23 Derek Torres MD [address] [place] [id number] [email or web address] Urology 02/22/23 Bossman Leon MD [address] [place] [address] [email or web address] Medical Oncology 02/22/23 documented as of this encounter Additional Source Comments The information contained in this document represents components of the legal health record. It is not the complete legal health record.[facility]
--- OUTSIDE RECORDS SUMMARY | 2024-12-01 12:27 | XMS_ITS | Data Portability ---
Author Organization [facility], [facility] Address [address] [place] [address] Care Team Providers Care Manager Product Design Name Role Phone FLAVIA PEARCE Primary Care Provider [phone] Assessment No assessment recorded. Plan of Treatment [...] Address Organization Details Recorded Time No complaints 429563139 Active Status : 'I'; Not Available [facility] 4 09:11:42 Arthritis of right knee joint 6236072713506 102 Active 2023 Brandy Walter CNP [address], [place], [address] , [facility] 4 21:53:48 Problem Notes None recorded. Procedures Surgical History Date Name Laterality Status Provider Name and Address Organization Details Recorded Time Euflexxa Knee Injection completed Brandy Walter CNP [address], [place], [address], [facility] 06/07/2023 09:55:41 4 Euflexxa Knee Injection completed Dashawn Duque PA-C [address], [place], [address], [facility] 05/28/2023 21:01:43 4 Euflexxa Knee Injection completed Guido Hurst PA-C [address], [place], [address], [facility] 05/22/2023 07:35:35 Imaging Results None recorded. Procedure [...] Address Organization Details Last Updated DateTime 05/22/2023 64475.4 g 30.1 kg/m2 177.8 cm PEREZ PACE [facility] 05/22/2023 09:11:55 Date Recorded Body height Body mass index (BMI) Body weight Provider Name and Address Organization Details Last Updated DateTime 05/29/2023 177.8 cm 30.1 kg/m2 01869.4 g Marvin Barreto [facility] 05/29/2023 08:50:54 Date Recorded Body height Body mass index (BMI) Body weight Provider Name and Address Organization Details Last Updated DateTime 06/07/2023 177.8 cm 30.1 kg/m2 83348.4 g TENZIN GARRETT [place] Juan Manuel [facility] 06/07/2023 09:10:28 Social History Question Answer Notes LastModified by DNage Details LastModified Time Tobacco Smoking Status Never Smoker PEREZ kolb [place] [facility] 05/22/2023 09:13:58 Have You Ever Been Counseled For Unhealthy Alcohol Use? No Information not available 05/22/2023 What Is Your Relationship Status? Single Information not available 05/22/2023 Sex: Unknown Functional Status Question Answer Note LastModified by [employer] Details LastModified Time How many times per [...] Fibromyalgia N Allergies/Hayfever N Thyroid Problems N Kidney/Bladder Problems N Anemia N Heart Attack ([place]) N Diabetes N Bleeding Disorder N Seizures/Epilepsy N AIDS/HIV N Congestive Heart Failure (CHF) N Asthma N Peripheral Vascular Disease N Sleep Apnea N Hepatitis N Heart Disease N Pulmonary Embolism N Hypertension Y Osteoporosis N Past Encounters Encounter ID Performer Location Encounter Start Date Encounter Closed Date Diagnosis/Indication Diagnosis SNOMED-CT Code Diagnosis ICD10 Code Diagnosis IMO Codes Diagnosis Note [id number] Guido Hurst PA-C [place] [address] [place] [address] 05/22/2023 08:58:50 06/12/2023 11:59:20 Osteoarthritis of right knee joint 6811497812 62587 M17.11 [id number] Dashawn Duque PA-C [place] [address] [place] [address] 05/29/2023 08:34:56 05/29/2023 09:44:28 Osteoarthritis of right knee joint 3211844624 70230 M17.11 [id number] Brandy Walter CNP [place] [address] [place] [address] 06/07/2023 08:57:59 06/21/2023 08:40:10 Arthritis of right knee joint 5889196512 492488 M13.861 Health Concerns Section Related Observation LastModified by Organization Detai ls LastModified Time None Recorded Concern Status LastModified by Organization Details LastModified Time None Recorded Advance Directives Directive None Recorded Payers Insurance Date Sequence Insurance Name Policy Number Policy Mcclure Covered Member ID Mcclure Member ID Guarantor Name 01/07/2024 1 [employer] (MEDICARE REPLACEMENT/ ADVANTAGE - PPO) [id number] Iker Duran [id number] Iker Duran Notes Date Note Type Note Provider Name and Address Organization Details Recorded Time 05/22/2023 text/html I am seeing the patient today under the supervision of Dr. Mosqueda who was available but did not see the patient. Guido Hurst PA-C [address], [place], [address], [facility] 05/22/2023 09:37:43 06/07/2023 text/html ROS as noted in the HPI Iker is here for his third euflexxa injection in the right knee. Brandy Walter CNP [address], [place], [address], [facility] 06/07/2023 09:55:54
--- OUTSIDE RECORDS SUMMARY | 2024-12-01 12:27 | XMS_ITS | Clinical Summary ---
Author Organization [facility] Address [address] [place] [address] Care Team Providers Care Model Maker Plastic Name Role Phone Pcp, Monika MD Primary [...] complete this topic Insurance [employer] Care Teams Model Maker Plastic Relationship Specialty Start Date End Date Monika Sheridan MD [address] [place] [address] PCP - General Internal Medicine 01/10/18
--- OUTSIDE RECORDS SUMMARY | 2024-12-01 12:27 | XMS_ITS | Clinical Summary ---
Author Organization [facility] Address [address] [address] Phone Care Team Providers Care Powder Core Tester Name Role Phone Veto Hazel MD Primary Care Provider + Jayden Horta MD, MPH Unavailable [phone] Derek Torres MD Unavailable [phone] Bossman Leon MD Unavailable [phone] Allergies Active Allergy Reactions Criticality Noted Date [...] REPLACEMENT A[employer] PPO MEDICARE REPLACEMENT Care Teams Powder Core Tester Relationship Specialty Start Date End Date Veto Hazel MD [address] [place] [address] PCP - General Internal Medicine 02/21/23 Jayden Horta MD, MPH [address] [place] [address], [facility] [place] [address] [email or web address] Radiation Oncology 02/22/23 Derek Torres MD [address] [place] [address] [email or web address] Urology 02/22/23 Bossman Leon MD [address] [place] [address] [email or web address] 02/22/23 Additional Source Comments The information contained in this document represents components of the legal health record. It is not the complete legal health record.[facility]
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
== END 2024-12-01 11:07 | disposition home or self-care (01) ==
LOC: HO.HUSH 10:27
PROVIDERS: PCP Internal Medicine; Visit Provider Urology
DX: C61 Malignant neoplasm of prostate (principal); N32.89 Other specified disorders of bladder
CPT/HCPCS: 99213; G2211

== ENCOUNTER → 2024-12-01 10:26 | Outpatient (BNVA) | payer MEDICARE, SELFPAY | PROVIDERS: PCP Internal Medicine; Visit Provider Urology | DX: C61 Malignant neoplasm of prostate (principal); N32.89 Other specified disorders of bladder; N52.9 Male erectile dysfunction, unspecified | CPT/HCPCS: 99212 ==

== ENCOUNTER 2025-01-06 14:15 | Outpatient (REF) | payer MEDICARE, SELFPAY ==
[2025-01-06 17:33] LABS: Anion Gap 11 (12-20); Blood Urea Nitrogen 16 mg/dL (9-16); Calcium 9.4 mg/dL (8.4-10.2); Carbon Dioxide 27 mmol/L (22-29); Chloride 108 mmol/L (96-108); Estimated Glomerular Filt Rate > 60; Potassium 3.9 mmol/L (3.3-5.1); Sodium 142 mmol/L (135-145)
[2025-01-06 17:34] LABS: Erythrocyte Sedimentation Rate 8 MM/HR (0-15)
[2025-01-06 18:09] LABS: Folate 6.4 ng/mL (> or = 4.0); Vitamin B12 265 pg/mL (200-900)
[2025-01-08 19:28] LABS: Lyme Abs Screen <0.90 index
== END 2025-01-06 14:16 | disposition home or self-care (01) ==
LOC: HO.LAB 14:15
PROVIDERS: PCP Internal Medicine; Visit Provider Psychiatry & Neurology Neurology
DX: G31.84 Mild cognitive impairment of uncertain or unknown etiology (principal); G62.9 Polyneuropathy, unspecified; Z01.84 Encounter for antibody response examination
CPT/HCPCS: 36415; 80048; 82607; 82746; 82784; 85652; 86334; 86617; 86618; 99212

== ENCOUNTER 2025-01-06 14:15 | Outpatient (AMB) | payer MEDICARE, SELFPAY ==
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
--- OUTSIDE RECORDS SUMMARY | 2025-01-06 17:10 | XMS_ITS | Clinical Summary ---
Author Organization [facility] Address [address] [address] Phone Care Team Providers Care Electronics Parts Sales Representative Name Role Phone Veto Hazel MD Primary Care Provider + Jayden Horta MD, MPH Unavailable [phone] Derek Torres MD Unavailable [phone] Bossman Leon MD Unavailable [phone] Allergies Active Allergy Reactions Criticality Noted Date [...] REPLACEMENT [employer] PPO MEDICARE REPLACEMENT Care Teams Electronics Parts Sales Representative Relationship Specialty Start Date End Date Veto Hazel MD [address] [place] [address] PCP - General Internal Medicine 02/21/23 Jayden Horta MD, MPH [address] [place] [address], ASB1- L2 [place] [address] [email or web address] Radiation Oncology 02/22/23 Derek Torres MD [address] [place] [address] [email or web address] Urology 02/22/23 Bossman Leon MD [address] [place] [address] [email or web address] Medical Oncology 02/22/23 Additional Source Comments The information contained in this document represents components of the legal health record. It is not the complete legal health record.[facility]
--- OUTSIDE RECORDS SUMMARY | 2025-01-06 17:10 | XMS_ITS | Clinical Summary ---
Author Organization [facility] Address [address] [place] [address] Care Team Providers Care Duct Layer Helper Name Role Phone Pcp, Monika MD Primary [...] Tdap) 05/13/2021 05/14/2011 COVID-19 Vaccine (1 - 2024-2 6 season) 2024 Influenza Vaccine (#1) 2024 8, 12/08/2014, 01/11/2009 HPV Vaccines Aged Out No longer eligi ble based on patient's age to complete this topic Hepatitis A Vaccines Aged Out No long er eligible based on patient's age to complete this topic Meningococcal Vaccine Aged Out No maryanne sanju eligible based on patient's age to complete this topic Insurance [employer] Care Teams Duct Layer Helper Relationship Specialty Start Date End Date Monika Sheridan MD [address] [place] [id number] PCP - General Internal Medicine 01/10/18
--- OUTSIDE RECORDS SUMMARY | 2025-01-06 17:10 | XMS_ITS | Clinical Summary ---
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
--- OUTSIDE RECORDS SUMMARY | 2025-01-06 17:10 | XMS_ITS | Encounter Summary ---
Author Organization [facility] Address [address] [facility] [address] [place] [address] Phone Care Team Providers Care Library Helper Name Role Phone Veto Hazel MD Primary Care Provider + Jayden Horta MD, MPH Unavailable [phone] Derek Torres MD Unavailable [phone] Bossman Leon MD Unavailable [phone] Encounter Details Date Type Department Care Team (Late st Contact Info) Description 03/28/2023 Procedure Pass [facility] [place] [facility] [place], MRI [address] [address] Social History Tobacco Use Types [...] on filedocumented in this encounter Care Teams Library Helper Relationship Specialty Start Date End Date Vteo Hazel MD [address] [place] [address] PCP - General Internal Medicine 02/21/23 Jayden Horta MD, MPH [address] [place] [address], ASB1- L2 [place] [address] [email or web address] Radiation Oncology 02/22/23 Derek Torres MD [address] [address] [email or web address] Urology 02/22/23 Bossman Leon MD [address] [place] [address] [email or web address] Medical Oncology 02/22/23 documented as of this encounter Additional Source Comments The information contained in this document represents components of the legal health record. It is not the complete legal health record.[facility]
--- OUTSIDE RECORDS SUMMARY | 2025-01-06 17:10 | XMS_ITS | Data Portability ---
Author Organization [place] [facility] Jens [facility]ner [facility] Address [address] [place] [address] Care Team Providers Care Mechanical Maintenance Technician Name Role Phone RAMSES FLAVIA Primary Care Provider FLAVIA PEARCE Referring Provider [phone] Assessment Encounter Date Assessment Date Assessment LastModified [...] another round. He already has authorization through [employer], but they were not able to get [...] another round. He already has authorization through [employer], but they were not able to get [...] 2.4-3.6 million) intra-kraig cular syringe 2024 025 [email or web address] Not available 08:15:38 Euflexxa 10 mg/mL (mw 2.4-3.6 million) intra-kraig cular syringe 2024 025 [email or web address] [facility] #[id number], [address] [place], [address], 14:59:18 Euflexxa 10 mg/mL (mw 2.4-3.6 million) intra-kraig cular syringe 2024 025 [email or web address] [id number], [address] [place], [address], 16:35:29 Euflexxa 10 mg/mL (mw 2.4-3.6 million) intra-kraig cular syringe 2024 025 [email or web address] [id number], [address] [place], [address], 16:17:34 Euflexxa 10 mg/mL (mw 2.4-3.6 million) intra-kraig cular syringe 2024 025 [email or web address] [id number], [address] [place], [address], 11:52:44 Patient TargetsNo targets recorded. Patient Instructions Encounter Date Encounter Id Patient Instructions Last Modified By Organization Details Last Modified Time 09/18/2024 [id number] Patient Instruct ions Following Viscosupplementation Injections Dr. [...] call Dr. Celestin s office immediately at [phone]. Not available 09/18/2024 06:30:24 09/25/2024 [id number] Patient Instruct ions Following Viscosupplementation Injections Dr. [...] call Dr. Celestin s office immediately at [phone]. Not available 09/25/2024 15:52:18 Reason for Referral None Reported. Problems Name Problem SNOMED Code Status Onset Date Resolution Date Notes Provider Name and Address Organization Details Recorded Time Benign essential hypertens ion 6273233 Active 2005 Essential hypertens ion, benign Not Available [facility] 5 00:01:31 Gastro-es ophageal reflux disease with esophagit is 064014232 Active 2005 Gastro-es ophageal reflux disease with esophagit is - Overview: Formattin g of this note might be different from the original. Overview: Erosive esophagit is on EGD 2005. 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 Not Available [facility] 5 00:01:31 Hyperchol esterolem ia 93013351 Active 2006 Hyperchol esteremia Not Available [facility] 5 00:01:32 Amblyopia 456069366 Active 2008 Amblyopia - Overview: Formattin g of this note might be different from the original. Overview: refractiv e os BVA Not Available [facility] 5 00:01:30 External hemorrhoi ds 56789530 Active 2010 External hemorrhoi ds Not Available [facility] 5 00:01:32 Glaucoma suspect 620322322 Active 2011 Glaucoma suspect Not Available [facility] 5 00:01:31 Nuclear sclerosis 549771212 Active 2011 Nuclear sclerosis Not Available [facility] 5 00:01:33 Erectile dysfuncti on 272023364 Active 2012 Erectile dysfuncti on Not Available [facility] 5 00:01:32 Nodule of lung 292351032 Active 2015 Pulmonary nodule - Overview: Formattin g of this note might be different from the original. Overview: CT of chest 12/06/15 shows a 0.8 cm right middle lobe nodule . Repeat 3-6 months suggested stability . Not Available [facility] 5 00:01:32 Low back pain 780414477 Active 2016 Lumbar pain with radiation down left leg Not Available [facility] 5 00:01:31 Pain of bilateral hands 93179405429 212521 Active 2016 Bilateral hand pain Not Available [facility] 5 00:01:32 Weak urinary stream due to benign prostatic hypertrop hy 90898031128 9100 Active 2016 Benign prostatic hyperplas ia with weak urinary stream Not Available [facility] 5 00:01:30 Lipoma of skin and subcutane ous tissue of neck 35978957 Active 2017 Lipoma of neck Not Available [facility] 5 00:01:33 Spinal stenosis of lumbar region 79677692 Active 2017 Lumbar spinal stenosis Not Available [facility] 5 00:01:30 Prediabet es 361148771 Active 2018 Prediabet es Not Available [facility] 5 00:01:31 Pain of knee region 5089093620 Active [address], [place], [address] , [place] [facility] 5 08:22:55 Osteoarth ritis of right knee joint 76824628437 9100 Active [address], [place], [address] , [place] [facility] 5 08:23:22 Osteoarth ritis of knee 608601413 Active [address], [place], [address] , [place] [facility] 5 15:39:05 Problem Notes None recorded. Procedures Surgical History Date Name Laterality Status Provider Name and Address Organization Details Recorded Time 5 Euflexxa Knee Inj completed [address], [place], [address], [place] [facility] 09/25/2024 22:22:29 5 Euflexxa Knee Inj completed MD [address], [place], [address], [place] [facility] 09/18/2024 14:20:16 5 Euflexxa Knee Inj completed [address], [place], [address], [place] [facility] 09/11/2024 15:57:27 5 Euflexxa Knee Inj completed SUJIT FERRIS PA-C [address], [place], [address], [place] [facility] 03/06/2024 15:40:02 5 Euflexxa Knee Inj completed SUJIT FERRIS PA-C [address], [place], [address], [place] [facility] 02/26/2024 11:51:57 5 Euflexxa Knee Inj completed SUJIT FERRIS PA-C [address], [place], [address], [place] [facility] 02/21/2024 14:54:04 Imaging Results None recorded. Procedure Notes None recorded. Medical Equipment None Reported. Allergies Allergen ID Allergen Name Allergen Category Reaction Reaction Severity Criticality Documentation Date Start Date Code Code System Note Provider Name and Address Organization Details Recorded Time 77012 naproxen medicatio n Not available Not available Not available 11/03/20242019 7258 RxNorm Gi bleed Not Available [facility] 01:21:31 Medications Name Sig Start Date Stop [...] Updated DateTime 02/26/2024 177.8 cm 30.1 kg/m2 54823.[address] [place] [facility] 02/26/2024 11:41:16 Date Recorded Body height Body mass index (BMI) Body weight Provider Name and Address Organization Details Last Updated DateTime 03/06/2024 177.8 cm 30 kg/m2 86001.81 g Ivana Mccloud [facility] 03/06/2024 15:08:36 Date Recorded Body height Body mass index (BMI) Body weight Provider Name and Address Organization Details Last Updated DateTime 09/18/2024 177.8 cm 30.1 kg/m2 56137.4 g Lena Love [facility], [facility] 09/18/2024 14:06:24 Date Recorded Body height Body mass index (BMI) Body weight Provider Name and Address Organization Details Last Updated DateTime 09/25/2024 177.8 cm 30.3 kg/m2 70122.99 g Lena Love [facility], [facility] 09/25/2024 15:50:56 Social History None recorded. Functional Status Question Answer Note LastModified by Organizat ion Details LastModified Time How many times per week do you consume alcohol? Less than 1 time per week [email or web address] Information not available 02/17/2024 Do you use any illicit or recreational drugs? No [email or web address] Information not available 02/17/2024 Do you or have you ever used any other forms of tobacco or nicotine? No [email or web address] Information not available 02/17/2024 What is your level of alcohol consumption? Occasional [email or web address] Information not available 02/17/2024 Mental Status None recorded. Family History Nothing Reported. Medical History Condition Response Coronary Artery Disease N Gout N Hyperthyroidism N MRSA N Blood Transfusion N Emphysema N Hypothyroidism N COPD Y Depression N Pacemaker N Vascular Disease N Gastrointestinal Disease N Anxiety Disorder N Autoimmune disease N Arthritis Y Cancer Y Stroke N High Cholesterol Y Neurologic Disorder N Liver Disease N Organ Transplant N Arrhythmia N Rheumatoid Arthritis N Fibromyalgia N Kidney Disease N Allergies/Hayfever N Adverse Reaction to Anesthesia N Thyroid Problems N Anemia N Brain Injury N Heart Attack (PA) N Osteopenia N Diabetes Y Bleeding Disorder [...] PF 8 completed Not Available [facility] 11/03/2024 05:27:32 Influenza, split virus, trivalent, preservative 9 completed Not Available [facility] 11/03/2024 05:27:32 zoster live 3 completed Not Available [facility] 11/03/2024 05:27:32 Pneumococcal conjugate PCV 13 8 completed Not Available [facility] 11/03/2024 05:27:32 pneumococcal polysaccharide PPV23 9 completed Not Available [facility] 11/03/2024 05:27:32 Influenza, MDCK, quadrivalent, preservative 7 completed Not Available [facility] 11/03/2024 05:27:33 Influenza, split virus, trivalent, preservative 5 completed Not Available [facility] 11/03/2024 05:27:33 Tdap 2 completed Not Available [facility] 11/03/2024 05:27:33 Influenza, high-dose, trivalent, PF 9 completed Not Available [facility] 11/03/2024 05:27:33 Td (adult), 2 Lf tetanus toxoid, preservative free, adsorbed 2 completed Not Available [facility] 11/03/2024 05:27:33 COVID-19, mRNA, LNP-S, PF, 100 mcg/0.5mL dose or 50 mcg/0.25mL dose 2 completed Not Available [facility] 11/03/2024 05:27:33 COVID-19, mRNA, LNP-S, PF, 100 mcg/0.5mL dose or 50 mcg/0.25mL dose 1 completed Not Available [facility] 11/03/2024 05:27:33 COVID-19, mRNA, LNP-S, PF, 100 mcg/0.5mL dose or 50 mcg/0.25mL dose 1 completed Not Available [facility] 11/03/2024 05:27:33 COVID-19, mRNA, LNP-S, bivalent, PF, 50 mcg/0.5 mL or 25mcg/0.25 mL dose 2 completed Not Available [facility] 11/03/2024 05:27:33 COVID-19, mRNA, LNP-S, PF, 100 mcg/0.5mL dose or 50 mcg/0.25mL dose 1 completed Not Available [facility] 11/03/2024 05:27:33 COVID-19, mRNA, LNP-S, PF, 100 mcg/0.5mL dose or 50 mcg/0.25mL dose 1 completed Not Available [facility] 11/03/2024 05:27:34 Past Encounters Encounter ID Performer Location Encounter Start Date Encounter Closed Date Diagnosis/Indication Diagnosis SNOMED-CT Code Diagnosis ICD10 Code Diagnosis IMO Codes Diagnosis Note [id number] MD WHITNEY Turner [place] [address] [place] [address] 02/17/2024 08:48:59 02/17/2024 09:25:31 Pain of knee region 0380396002 M25.561 G89.29 39353984 Osteoarthr itis of right knee joint 1685106005 35097 M17.11 [id number] RAS GARCIA [address] [place] [address] 02/21/2024 14:31:16 02/21/2024 14:52:39 Osteoarthritis of knee 415619052 M17.9 Osteoarthr itis of right knee joint 7163741855 49750 M17.11 2106555 Pain of knee region 1003 768023 M25.561 G89.29 50629490 [id number] RAS GARCIA [address] [place] [address] 02/26/2024 11:33:34 02/26/2024 11:43:05 Osteoarthritis of right knee joint 8688002350 22425 M17.11 5453700 Osteoarthr itis of knee 063419017 M17.9 Pain of knee region 1003 280383 M25.561 G89.29 39873505 [id number] RAS [address]ARCIA [address] [place] [address] 03/06/2024 14:55:05 03/06/2024 15:41:02 Osteoarthritis of right knee joint 7487218415 28864 M17.11 7834688 Osteoarthr itis of knee 678741169 M17.9 Pain of knee region 1003 000327 M25.561 G89.29 35582007 [id number] RAS [address]IA [address] [facility] [place] [address] 09/11/2024 15:29:12 09/11/2024 16:04:27 Osteoarthritis of right knee joint 5185527963 42584 M17.11 2571559 [id number] MD WHITNEY [address] [place] [address] 09/18/2024 14:00:49 09/18/2024 14:27:18 Osteoarthritis of right knee joint 0888123103 M17.11 [id number] [id number] RAS [address]ARCIA [address] [place] [address] 09/25/2024 15:43:53 09/25/2024 15:59:38 Osteoarthritis of right knee joint 1844625668 M17.11 [id number] Health Concerns Section Related Observation LastModified by Organization Detai ls LastModified Time None Recorded Concern Status LastModified by Organization Details LastModified Time None Recorded Advance Directives Directive None Recorded Payers Insurance Date Sequence Insurance Name Policy Number Policy Mcclure Covered Member ID Mcclure Member ID Guarantor Name 09/24/2024 1 [employer] (MEDICARE REPLACEMENT/ ADVANTAGE - PPO) [id number] Iker Duran [id number] Iker Duran Notes Date Note Type Note [...] knee osteoarthritis. He has been seen at [facility]. He has previously undergone Euflexxa injections [...] SUJIT FERRIS PA-C [address], [place], [address], [place] [facility] 02/26/2024 11:52:16 5 text/html ROS as [...] knee osteoarthritis. He has been seen at [facility]. He has previously undergone Euflexxa injections [...] hip or ankle. [address], [place], [address], [facility] 03/06/2024 15:40:30 5 text/html ROS as [...] SUJIT FERRIS PA-C [address], [place], [address], [facility] 09/11/2024 16:01:00 5 text/html ROS as [...] D Celestin MD [address], [place], [address], [facility] 09/18/2024 14:21:29 5 text/html ROS as [...] saw him last [address], [place], [address], [place] [facility] 09/25/2024 22:24:05
--- OUTSIDE RECORDS SUMMARY | 2025-01-06 17:10 | XMS_ITS | Data Portability ---
Author Organization [facility] Address [address] [place] [address] Care Team Providers Care Facilities Locator Name Role Phone FLAVIA PEARCE Primary Care [...] Address Organization Details Recorded Time No complaints 989833766 Active Status : 'I'; Not Available [facility] 4 09:11:42 Arthritis of right knee joint 5044551848033 102 Active 2023 Brandy Walter CNP [address], [facility] [place], [address] , [facility] 4 21:53:48 Problem Notes None recorded. Procedures Surgical History Date Name Laterality Status Provider Name and Address Organization Details Recorded Time Euflexxa Knee Injection completed Brandy Walter CNP [address], [place], [address], [facility] 06/07/2023 09:55:41 4 Euflexxa Knee Injection completed Dashawn Duque PA-C [address], [place], [address], [facility] 05/28/2023 21:01:43 4 Euflexxa Knee Injection completed Guido Hurst PA-C [address], [place], [address], [facility] 05/22/2023 07:35:35 Imaging Results None recorded. [...] Address Organization Details Last Updated DateTime 05/22/2023 26503.4 g 30.1 kg/m2 177.[address] [facility] [place] [facility] 05/22/2023 09:11:55 Date Recorded Body height Body mass index (BMI) Body weight Provider Name and Address Organization Details Last Updated DateTime 05/29/2023 177.8 cm 30.1 kg/m2 95973.4 g Marvin Barreto [facility] 05/29/2023 08:50:54 Date Recorded Body height Body mass index (BMI) Body weight Provider Name and Address Organization Details Last Updated DateTime 06/07/2023 177.8 cm 30.1 kg/m2 69237.[address] Juan Manuel [facility] 06/07/2023 09:10:28 Social History Question Answer Notes LastModified by [employer] Details LastModified Time Tobacco Smoking Status Never Smoker PEREZ kolb [place] [facility] 05/22/2023 09:13:58 Have You Ever Been Counseled For Unhealthy Alcohol Use? No Information not available 05/22/2023 What Is Your Relationship Status? Single Information not available 05/22/2023 Sex: Unknown Functional Status Question Answer Note LastModified by [employer] Details LastModified Time How many times per [...] Kidney/Bladder Problems N Anemia N Heart Attack ([place]) N Diabetes N Bleeding Disorder N Seizures/Epilepsy N AIDS/HIV N Congestive Heart Failure (CHF) N Asthma N Peripheral Vascular Disease N Sleep Apnea N Hepatitis N Heart Disease N Pulmonary Embolism N Hypertension Y Osteoporosis N Past Encounters Encounter ID Performer Location Encounter Start Date Encounter Closed Date Diagnosis/Indication Diagnosis SNOMED-CT Code Diagnosis ICD10 Code Diagnosis IMO Codes Diagnosis Note [id number] Guido Hurst PA-C [place] [address] [place] [address] 05/22/2023 08:58:50 06/12/2023 11:59:20 Osteoarthritis of right knee joint 0169127154 41478 M17.11 [id number] Dashawn Duque PA-C [place] [address] [place] [address] 05/29/2023 08:34:56 05/29/2023 09:44:28 Osteoarthritis of right knee joint 8427565520 92169 M17.11 [id number] Brandy Walter CNP [place] [address] [place] [address] 06/07/2023 08:57:59 06/21/2023 08:40:10 Arthritis of right knee joint 0414153260 250239 M13.861 Health Concerns Section Related Observation LastModified by Organization Detai ls LastModified Time None Recorded Concern Status LastModified by Organization Details LastModified Time None Recorded Advance Directives Directive None Recorded Payers Insurance Date Sequence Insurance Name Policy Number Policy Mcclure Covered Member ID Mcclure Member ID Guarantor Name 01/07/2024 1 [employer] (MEDICARE REPLACEMENT/ ADVANTAGE - PPO) [id number] kIer Duran [id number] Iker Duran Notes Date Note Type Note Provider Name and Address Organization Details Recorded Time 05/22/2023 text/html I am seeing the patient today under the supervision of Dr. Mosqueda who was available but did not see the patient. Guido Hurst PA-C [address], [place], [address], [facility] 05/22/2023 09:37:43 06/07/2023 text/html ROS as noted in the HPI Iker is here for his third euflexxa injection in the right knee. Brandy Walter CNP [address], [place], [address], [facility] 06/07/2023 09:55:54
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
--- OUTSIDE RECORDS SUMMARY | 2025-01-06 17:10 | XMS_ITS | Clinical Summary ---
Author Organization [facility] Address [address] [place] [address] Care Team Providers Care Forest Ecology Professor Name Role Phone Ilir PEPPER MD, Veto Sierra Primary Care Provider [phone] Allergies Active Allergy Reactions Criticality Noted Date [...] years old and patients) (1 - Risk 50-74 years 1-dose series) 01/19/2002 Alcohol/Substance Use Screening 02/12/2024 Depression Screening and Follow-Up 02/12/2024 Fall Risk Screening 02/12/2024 Health Care Proxy Review 02/12/2024 Social Drivers of Health Annual Screening 02/12/2024 Influenza Vaccine (#1) 2024 , 11/10/2021, 12/08/2020, Additional history exists COVID-19 Vaccine ( season) 2024 11/28/2021, 05/25/2021, 12/08/2020, Additional history exists DTaP,Tdap,and Td Vaccines (3 - Td or Tdap) 08/04/2031 08/03/2021, 05/14/2011 Pneumococcal Vaccine: 50+ Years Completed 04/21/2018, 02/19/2017 Zoster Vaccines Completed 01/05/2020, 10/2019, 12/10/2018, Additional history exists Hepatitis B Vaccines Aged Out No long er eligible based on patient's age to complete this topic Insurance [employer] MCR Care Teams Forest Ecology Professor Relationship Specialty Start Date End Date Ilir, Veto B III, MD PCP - General Internal Medicine 05/29/23
== END 2025-01-06 14:25 | disposition home or self-care (01) ==
LOC: HO.HSM 14:15
PROVIDERS: PCP Internal Medicine; Visit Provider Psychiatry & Neurology Neurology
DX: G31.84 Mild cognitive impairment of uncertain or unknown etiology (principal); G62.9 Polyneuropathy, unspecified
CPT/HCPCS: 99214